=== PATIENT | male | born 1940 | race Caucasian/White ===

== ENCOUNTER → 2023-07-24 06:41 | Outpatient (REF) | payer OTHER, SELFPAY ==
[2023-07-24 07:26] LABS: % Basophils 1.1 % (0-2); % Eosinophils 3.5 % (0-6); % Immature Granulocytes 0.6 % (0-0.5); % Lymphocytes 22.2 % (20.5-51.1); % Monocytes 12.1 % (1.7-9.3); % Neutrophils 60.5 % (42.2-75.2); Absolute Basophils 0.1 10^3/uL (0-0.2); Absolute Eosinophils 0.2 10^3/uL (0-0.7); Absolute Lymphocytes 1.2 10^3/uL (1.2-3.4); Absolute Monocytes 0.7 10^3/uL (0.1-0.6); Absolute Neutrophils 3.3 10^3/uL (1.4-6.5); Hematocrit 39.6 % (39.0-52.0); Hemoglobin 13.6 g/dL (13.0-18.0); Mean Corp Hgb Conc. 34.3 g/dL (33.0-37.0); Mean Corpuscular Hgb 33.7 pg (27.0-31.0); Mean Platelet Volume 9.8 fL (7.4-10.4); Nucleated Red Blood Cells % 0 % (-); Platelet Count 192 10^3/uL (130-400); Red Blood Cell Count 4.04 10^6/uL (4.70-6.10); Red Cell Dist. Width 12.7 % (11.5-14.5); White Blood Cell Count 5.4 10^3/uL (4.8-10.8)
[2023-07-24 07:56] LABS: ALT (SGPT) 28 U/L (0-50); AST (SGOT) 29 U/L (17-59); Alkaline Phosphatase 107 U/L (38-126); Blood Urea Nitrogen 19 mg/dl (9-20); Calcium 9.4 mg/dl (8.4-10.2); Carbon Dioxide 27 mmol/L (22-30); Chloride 106 mmol/L (98-107); Glucose 116 mg/dl (70-99); HDL Cholesterol 64 mg/dl; LDL Cholesterol, Calculated 64 mg/dl; Potassium 4.5 mmol/L (3.5-5.1); Sodium 137 mmol/L (135-145); Total Bilirubin 0.8 mg/dl (0.2-1.3); Total Cholesterol 143 mg/dl (50-199); Total Protein 6.6 g/dl (6.3-8.2); Triglyceride 77 mg/dl (10-149); Very Low Density Lipoprotein 15 mg/dl (0-30); eGFR > 60.00
== END ==
LOC: REG 06:41
PROVIDERS: ATTENDING PHYSICIAN Internal Medicine Cardiovascular Disease; FAMILY PHYSICIAN Family Medicine
DX: Z00.00 Encounter for general adult medical examination without abnormal findings (principal); I25.10 Atherosclerotic heart disease of native coronary artery without angina pectoris; I10 Essential (primary) hypertension; E78.5 Hyperlipidemia, unspecified; Z86.39 Personal history of other endocrine, nutritional and metabolic disease; E11.9 Type 2 diabetes mellitus without complications
CPT/HCPCS: 36415; 80053; 80061; 83036; 85025

== ENCOUNTER → 2023-08-27 08:28 | Outpatient (REF) | payer OTHER, SELFPAY ==
[2023-08-27 09:07] LABS: % Basophils 0.9 % (0-2); % Eosinophils 3.2 % (0-6); % Immature Granulocytes 0.1 % (0-0.5); % Neutrophils 68.8 % (42.2-75.2); Absolute Basophils 0.1 10^3/uL (0-0.2); Absolute Eosinophils 0.2 10^3/uL (0-0.7); Absolute Lymphocytes 1.2 10^3/uL (1.2-3.4); Absolute Monocytes 0.7 10^3/uL (0.1-0.6); Absolute Neutrophils 4.7 10^3/uL (1.4-6.5); Hematocrit 41.3 % (39.0-52.0); Hemoglobin 14.1 g/dL (13.0-18.0); Mean Corp Hgb Conc. 34.1 g/dL (33.0-37.0); Mean Corpuscular Hgb 33.1 pg (27.0-31.0); Mean Corpuscular Volume 96.9 fL (80.0-94.0); Nucleated Red Blood Cells % 0 % (-); Platelet Count 190 10^3/uL (130-400); Red Blood Cell Count 4.26 10^6/uL (4.70-6.10); Red Cell Dist. Width 12.6 % (11.5-14.5); White Blood Cell Count 6.8 10^3/uL (4.8-10.8)
[2023-08-27 09:28] LABS: Erythrocyte Sed Rate 11 mm/hour (0-20)
[2023-08-27 10:10] LABS: ALT (SGPT) 24 U/L (0-50); AST (SGOT) 28 U/L (17-59); Albumin 3.8 g/dl (3.5-5.0); Alkaline Phosphatase 98 U/L (38-126); Blood Urea Nitrogen 19 mg/dl (9-20); Calcium 9.3 mg/dl (8.4-10.2); Carbon Dioxide 26 mmol/L (22-30); Chloride 107 mmol/L (98-107); Glucose 128 mg/dl (70-99); Potassium 4.4 mmol/L (3.5-5.1); Sodium 140 mmol/L (135-145); Total Bilirubin 0.8 mg/dl (0.2-1.3); Total Protein 6.3 g/dl (6.3-8.2); eGFR > 60.00
[2023-08-27 10:21] LABS: C-Reactive Protein < 5.00 mg/L (0.0-10.00)
[2023-08-28 14:31] LABS: Lyme Antibody Screen, EIA Negative (Negative)
== END ==
LOC: REG 08:28
PROVIDERS: ATTENDING PHYSICIAN Internal Medicine; FAMILY PHYSICIAN Family Medicine
DX: A15.9 Respiratory tuberculosis unspecified (principal); A69.20 Lyme disease, unspecified; K75.9 Inflammatory liver disease, unspecified; M06.9 Rheumatoid arthritis, unspecified; M25.50 Pain in unspecified joint; M79.641 Pain in right hand; M81.0 Age-related osteoporosis without current pathological fracture; Z68.35 Body mass index [BMI] 35.0-35.9, adult
CPT/HCPCS: 36415; 80053; 85025; 85652; 86140; 86618

== ENCOUNTER 2023-11-02 20:59 | Inpatient (IN) | payer OTHER, SELFPAY ==
[2023-11-02] VITALS (7 sets, daily range): BP systolic 137–167; BP diastolic 62–80; BMI 34.3; BMI 33.9
[2023-11-02 19:14] LABS: Hematocrit 37.9 % (39.0-52.0); Hemoglobin 13.7 g/dL (13.0-18.0); Mean Corp Hgb Conc. 36.1 g/dL (33.0-37.0); Mean Corpuscular Hgb 33.7 pg (27.0-31.0); Mean Corpuscular Volume 93.3 fL (80.0-94.0); Mean Platelet Volume 9.9 fL (7.4-10.4); Platelet Count 193 10^3/uL (130-400); Red Blood Cell Count 4.06 10^6/uL (4.70-6.10); Red Cell Dist. Width 12.7 % (11.5-14.5); White Blood Cell Count 10.1 10^3/uL (4.8-10.8)
[2023-11-02 19:38] LABS: Urine Albumin Trace (Neg - Trace); Urine Bilirubin Negative (Negative); Urine Character Very Cloudy (Clear); Urine Color Yellow; Urine Glucose Negative (Negative); Urine Ketone 1+ (Negative); Urine Leukocyte 2+ (Negative); Urine Nitrite Negative (Negative); Urine Occult Blood 1+ (Negative); Urine Specific Gravity 1.025 (<1.030); Urine Urobilinogen Negative (Neg - 1+)
[2023-11-02 19:41] LABS: ALT (SGPT) 30 U/L (0-50); AST (SGOT) 32 U/L (17-59); Albumin 4.2 g/dl (3.5-5.0); Alkaline Phosphatase 112 U/L (38-126); Blood Urea Nitrogen 17 mg/dl (9-20); Calcium 9.1 mg/dl (8.4-10.2); Carbon Dioxide 26 mmol/L (22-30); Chloride 101 mmol/L (98-107); Estimated Creatinine Clearance 83 ml/min; Glucose 111 mg/dl (70-99); Magnesium 1.8 mg/dl (1.6-2.3); Potassium 4.1 mmol/L (3.5-5.1); Sodium 134 mmol/L (135-145); Total Protein 6.6 g/dl (6.3-8.2); eGFR > 60.00
[2023-11-02 19:43] LABS: Urine Squamous Cell 0-2 /LPF (Few)
[2023-11-02 19:44] LABS: Urine Bacteria Moderate (Negative); Urine White Cell 70-80 /HPF (0-5)
--- NOTE | 2023-11-02 20:18 | ED.GENMED ---
History of Present Illness
General
Chief Complaint: Change in Mental Status
Source: patient and spouse
Exam Limitations: none
Time Seen by Provider: 11/02/23 18:36
Nursing documentation reviewed up to this point in time: agreed with
History of Present Illness
History of Present Illness:
Patient with history of TIA, currently taking Plavix only at home, presents to ED secondary to sudden onset of confusion, i.e. 'cannot remember yesterday's events', noted by his this morning, after breakfast. also states that patient
could not remember name of the legal services professional when watching news this morning, which is unusual for the patient. Patient denies headache. Denies difficulty with speech. Denies difficulty with swallowing. Denies headache. Denies loss of
sensation or weakness. Denies difficulty with ambulation. When he was diagnosed with TIA last year, his symptoms included confusion along with slurred speech.
Past History
Past History
ED Past Medical History: CAD and Other (Aortic valve replacement, gout)
ED Past Surgical History: Cardiac
Social History
Tobacco: Smoker
Alcohol: Daily
Drug: None
Personal:
Living: with family
Review of Systems
Review of Systems
Allergies reviewed?: Yes
All Other Systems: ROS reviewed and negative except as documented in HPI and ROS
Constitutional: Reports no symptoms
EENT: Reports no symptoms
Respiratory: Reports no symptoms
ABD/GI: Reports no symptoms
Musculoskeletal: Reports no symptoms
Skin: Reports no symptoms
Neurological: Reports other (confusion)
Phy Exam
Physical Exam
Physical Exam:
Physical Exam
General: no apparent distress, not acutely ill. afebrile
Head: nc/at. eomi
Neck: supple. no meningeal signs.
Heart: s1/s2 regular rate and rhythm, no murmur. equal radial pulses.
Lungs: no acute respiratory distress. clear bilaterally
Abdomen: normal bowel sounds. not tender.
Neuro: alert and oriented. no focal neurological deficits. normal speech.
Skin: no rash
Psychiatric: well kept. interactive and cooperative
Extremities: no edema. no calf tenderness.
Course
Orders/Labs/Results
Orders:
Orders
11/02/23 18:33
CT Head W/o Iv Contrast Urgent
Comment:
Reason For Exam: headache
11/02/23 18:44
Electrocardiogram (*1) Stat
Reason for Study: Other
Other Reason for Exam: neuro symptoms
EKG- Treatment ONCE
11/02/23 19:06
Complete Blood Count/No Diff Urgent
Comprehensive Metabolic Panel Urgent
Magnesium Urgent
11/02/23 19:29
Urinalysis Reflex To Culture Urgent
Date Specimen was Collected: 11/02/23
Time Specimen was Collected: 19:08
Urine Microscopic Reflex Cult Urgent
Urine Culture Urgent
PARVIN Source: U
Specimen Description:
Obtained by: Random
Date Specimen was Collected: 11/02/23
Time Specimen was Collected: 19:08
11/02/23 20:22
Aspirin 325 mg PO NOW STA
11/02/23 20:31
CefTRIAXone [Rocephin] 1,000 mg IV NOW STA
11/02/23 20:33
Sterile Water [Sterile Water For Injection] 10 ml IV NOW STA
11/02/23 20:51
Admit/Transfer Patient As Directed
Co-Sign Provider:
Level of Care: Inpatient admission
Assign to:: Telemetry
Physician / Group: [email or web address]
Diagnosis: Lacunar infract
Reason for Telemetry: Arrhythmia
Date to Stop Telemetry: 11/05/23
Time to Stop Telemetry: 11:00
Reason for Hospitalization: lacunar infract
Expected length of stay greater than two midnights?: Yes
ELOS- Estimated Length of Stay in days: 3
I certify the patient meets the requirements for IP care: Yes
PRN Pain Medication Management As Directed
May give lesser potent ordered pain med per pt: Yes
preference::
Protocol:: Medication orders for pain may be administered in a
manner that supports deferring to patient preference
when the pt is:
- Requesting an ordered lesser potent pain medication.
Least to most potent pain medications are defined
as: acetaminophen < NSAID < tramadol < opioids
(morphine, oxycodone, hydromorphone).
- Requesting a lesser dose of the same medication IF
ORDERED.
- Requesting a less intrusive route of administration
if both routes are prescribed by the provider (PO <
IV).
11/02/23 20:53
Code Status As Directed
Resuscitation Status: Full Code
11/02/23 21:45
Acetaminophen [Tylenol/Feverall] 650 mg RECTAL Q4HPRN PRN
Acetaminophen [Tylenol] 650 mg PO Q4HPRN PRN
11/02/23 21:45
Case Management Consult ONCE
Case Management Consult: Discharge Planning
Comment: stroke/tia
DIETARY CONSULT Routine
Reason for Consult: stroke/TIA
NEUROLOGY CONSULT Urgent
Consulting Provider: Demetra Nye
Was physician already notified: Yes
Gym Instructor Urgent
MA [place] Routine
Comment:
Reason For Exam: stroke/TIA
Recent pill cam endoscopy?: No
MA Neck With Contrast Routine
Comment:
Reason For Exam: stroke/TIA
Recent pill cam endoscopy?: No
MR Brain Without Contrast Routine
Comment:
Reason For Exam: stroke/TIA
Recent pill cam endoscopy?: No
Activity As Directed
Activity Level: As Tolerated
NIH Stroke Scale As Directed
Directions: Per protocol
Comment: every shift and with any change in condition or mental status
Neurological Checks As Directed
Frequency: q4h
Additional Instructions:: q4h x 24h upon admission to the floor, then qshift & with any change in condition
and mental status
Patient Education As Directed
Type: Stroke education packet
Comment: provide to patient and family
Pneumatic Compression Sleeves As Directed
Type: Thigh high
Swallow Screening CVA/TIA ONLY As Directed
Comment: NPO until swallowing screening completed
If patient FAILS swallow screening:: NPO, Speech Therapy consult, Aspiration Precautions
If patient PASSES swallow screening, diet:: Cholesterol Lowering
Vital Signs As Directed
Frequency: Per unit guidelines
Ot Eval And Treat Routine
Pt Eval And Treat Routine
Activity Level: As Tolerated
Speech Therapy Eval & Treat Routine
DX Deep Vein Thrombosis Video Routine
11/02/23 21:55
Glycohemoglobin (HgbA1c) Routine
11/02/23 22:00
Atorvastatin [Lipitor] 40 mg PO HS
11/03/23 06:00
Basic Metabolic Panel IN AM
Cardiovascular Evaluation IN AM
Complete Blood Count/No Diff IN AM
11/03/23 08:00
Allopurinol [Zyloprim] 300 mg PO DAILY
Aspirin Chewable [Low Strength Aspirin] 81 mg PO DAILY
Clopidogrel Bisulfate [Plavix] 75 mg PO DAILY
Hydroxychloroquine [Plaquenil] 400 mg PO DAILY
Irbesartan [Avapro] 300 mg PO DAILY
Metoprolol Xl [Toprol Xl] 75 mg PO DAILY
Sulfasalazine [Azulfidine] 1,000 mg PO BID
11/03/23 12:00
CefTRIAXone [Rocephin] 1,000 mg IV Q24H
11/03/23 18:00
Finasteride [Proscar] 5 mg PO QPM
Tamsulosin [Flomax] 0.4 mg PO QPM
11/04/23 06:00
Basic Metabolic Panel IN AM
Complete Blood Count/No Diff IN AM
11/05/23 06:00
Basic Metabolic Panel IN AM
Complete Blood Count/No Diff IN AM
11/05/23 11:00
DC Protocol for Telemetry ONCE
11/06/23 06:00
Basic Metabolic Panel IN AM
Complete Blood Count/No Diff IN AM
11/07/23 06:00
Basic Metabolic Panel IN AM
Complete Blood Count/No Diff IN AM
Abnormal Lab Results
11/02/23 11/02/23
19:06 19:29
RBC 4.06 L 10^6/uL
(4.70-6.10)
Hct 37.9 L %
(39.0-52.0)
MCH 33.7 H pg
(27.0-31.0)
Sodium 134 L mmol/L
(135-145)
Glucose 111 H mg/dl
(70-99)
Urine Ketones 1+ A
(Negative)
Ur Occult Blood Reflex 1+ A
(Negative)
Leukocyte Esterase Rfl 2+ A
(Negative)
Urine RBC 7-10 A /HPF
(0-2)
Urine WBC (Reflex) 70-80 A /HPF
(0-5)
Urine Bacteria (Reflex) Moderate A
(Negative)
11/02/23 19:06
11/02/23 19:06
Vital Signs
Initial and Last Documented VS:
Initial Vital Signs
Temp Pulse Resp BP Pulse Ox
98.7 F 89 18 167/80 97
11/02/23 18:09 11/02/23 18:09 11/02/23 18:09 11/02/23 18:09 11/02/23 18:09
Last Documented Vital Signs
Temp Pulse Resp BP Pulse Ox
98.5 F 83 16 146/73 96
11/02/23 22:31 11/02/23 22:31 11/02/23 22:31 11/02/23 22:31 11/02/23 22:31
MDM/Problems Addressed
MDM/Problems Addressed:
CT head: lacunar infarct noted.
Patient is not a candidate for TNK treatment, as NIH stroke scale is 0.
Discussed with (neurology). Recommends admission for further workup, including adding aspirin to his daily Plavix regimen.
*Critical Care Note
Total Time (30-74mins, 75-104mins- exclusive of procedures): Not Applicable
ED Attending Note
-
Portions of this chart may have been created with voice recognition software.� Occasional wrong word or��sound alike� substitutions may have occurred due to the inherent limitations of voice recognition software.
Discharge Plan
Departure
Patient Disposition: Admit
Date of Disposition: 11/02/23
Time of Disposition: 20:25
Admit to: Telemetry
Presentation/result/management discussed w/ accepting MD/DO: Hospitalist
Discharge Problem:
Acute CVA (cerebrovascular accident)
Interventions
Interventions:
*Risk Screen - Suicide Last Done: 11/02/23 18:09
*General Assessment Last Done: 11/02/23 18:09
*Neglect/Abuse Screening Last Done: 11/02/23 18:09
ED- Fall Risk Assessment Last Done: 11/02/23 18:30
*ED COVID-19 Vaccine History Last Done: 11/02/23 18:30
*Nursing Disposition Last Done: 11/02/23 21:46
ED- Pulmonary Assessment Last Done: 11/02/23 18:30
ED-Psychological Assessment Last Done: 11/02/23 18:30
ED- Neurological Assessment Last Done: 11/02/23 18:30
ED- Cardiac Assessment Last Done: 11/02/23 18:30
ED Swallowing Screen Last Done: 11/02/23 18:30
Discharge Date and Time
Discharge Date/Time: 11/02/23 21:45
--- NOTE | 2023-11-02 20:25 | HPS.HSE ---
Family Physician
-
Family Physician: Jessika Benson MD
Chief Complaint
-
confusion
History of Present Illness
83 year old with PMH for TIA, CAD, GOUT presented to us with confusion since this morning. also states that patient could not remember name of the import customer service manager when watching news this morning, which is unusual for the patient. he couldn't
remember what happened to Trump last week, which he is very well aware as he follow political news all the time. patient refused to eat dinner as he was keep saying 'I don't feel good'. he stated some GATICA. denied fever chills, chest pain, sob. denied
abdominal pain,n,v,d. denied dysuria or hematuria.
Ct with lacunar infract. received Plavix and asa in ER. admitting for further management.
Medical History
Past Medical History
Past Medical History: Reports Other
Additional Past Medical History:
Rheumatoid arthritis
Essential hypertension
Hyperlipidemia
Aortic stenosis
DVT -off anticoagulation since September 2020.
CAD
Gout
Paroxysmal atrial fibrillation -only noted in the perioperative state without recurrence
Chronic heart failure preserved EF
Spinal stenosis
Lyme disease
Past Surgical History: Reports Other
Additional Past Surgical History:
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
Bioprosthetic AVR February 2016
Orthopedic surgery
Bilateral cataract
Social History
Tobacco: Smoker (cigars daily)
Alcohol: Daily (2 beers daily)
Drug: None
Personal:
Living: With Family
Family History
Family History: Not pertinent
Allergies / Home Medications
Allergies reflects when Allergies were last updated in [employer].
Home Medications with original date entered in [employer]
Allergy/Medication List:
Allergies
Allergy/AdvReac Type Severity Reaction Status Date / Time
morphine Allergy Nausea / Verified 11/02/23 18:08
Vomiting
Enviornmental Allergy Sneezing, Uncoded 01/04/23 09:37
runny
nose, eyes
watery
Home Medications
allopurinol 300 mg tablet 300 mg PO DAILY 02/16/16
aspirin 81 mg tablet,delayed release 81 mg PO DAILY 02/16/16
atorvastatin 20 mg tablet (Lipitor) 20 mg PO HS 01/04/23
calcium carbonate (Calcium 600) 600 mg PO DAILY 01/04/23
cholecalciferol (vitamin D3) 50 mcg (2,000 unit) capsule (Vitamin D3) 50 mcg PO DAILY 01/04/23
finasteride 5 mg tablet 5 mg PO QPM 01/04/23
hydroxychloroquine 200 mg tablet (Plaquenil) 400 mg PO DAILY 01/04/23
irbesartan 300 mg tablet (Avapro) 300 mg PO DAILY 01/04/23
metoprolol succinate 50 mg tablet,extended release 24 hr (Toprol XL) 75 mg PO DAILY 01/04/23
omeprazole 20 mg tablet,delayed release 20 mg PO Q48H 01/04/23
sulfasalazine 500 mg tablet 1,000 mg PO BID 01/04/23
tamsulosin 0.4 mg capsule (Flomax) 0.4 mg PO QPM 01/04/23
clopidogrel 75 mg tablet 75 mg PO DAILY #20 tabs 01/05/23
Review of Systems
-
Constitutional: Reports No Symptoms
EENT: Reports No Symptoms
Respiratory: Reports No Symptoms
Cardiac: Reports No Symptoms
Abdomen/GI: Reports No Symptoms
: Reports No Symptoms
Musculoskeletal: Reports No Symptoms
Skin: Reports No Symptoms
Neurological: Reports Headache
Endocrine: Reports No Symptoms
Hematologic/Lymphatic: Reports No Symptoms
Psych: Reports No Symptoms
Physical Exam
Vital Signs
Vital Signs
Temp Pulse Resp BP Pulse Ox
98.7 F 89 18 137/62 96
11/02/23 18:09 07/21/24 18:09 11/02/23 18:09 11/02/23 20:00 11/02/23 20:00
Physical Exam
General: Well Developed, Well Nourished and No Apparent Distress
HEENT: NormoCephalic, Moist mucous membranes and Atraumatic
Respiratory: Clear
Cardiac: S1/S2 and Regular Rhythm; No Murmur or Rub
GI: Soft, Non Tender, Non Distended and Normal Bowel Sounds; No Organomegaly
Rectal: Deferred by Provider
Musculoskeletal: No Clubbing, No Cyanosis and No Edema
Skin: No Rash
Neuro: AO x 3 and Nonfocal/grossly intact
Psych: Calm
Laboratory Results
-
11/02/23 19:06
11/02/23 19:06
Laboratory Results
Total Bilirubin 1.0 mg/dl (0.2-1.3) 11/02/23 19:06
AST 32 U/L (17-59) 11/02/23 19:06
ALT 30 U/L (0-50) 11/02/23 19:06
Alkaline Phosphatase 112 U/L (38-126) 11/02/23 19:06
Data Reviewed
-
CT Scan: Report Reviewed by me
Lab Data: Labs Reviewed by me
Impression/Plan
-
#lacunar infract
-CT head with here is a 1 cm nonhemorrhagic lacunar infarct in the anterior aspect of the putamen and anterior limb of the internal capsule on the left.There is mild diffuse cortical atrophy with mild nonspecific white matter changes as described
above.
-asa and Plavix continued
-PT/OT consult
-neurology consult
#Urinary tract infection
-iv ceftriaxone.
#CAD/CABG -stable
-plavix continued
#Essential hypertension
-BP stable
-metoprolol and irbesartan continued
#Hyperlipidemia -continue atorvastatin.
#Aortic stenosis -status post bioprosthetic AVR.
#Rheumatoid arthritis -stable.� Continue hydroxychloroquine, sulfasalazine.
#Paroxysmal atrial fibrillation -not on chronic anticoagulation
-metoprolol continued
#Gout -stable.� Continue allopurinol.
#Tobacco dependence -smokes 1 cigar daily.� Encouraged to quit.
#History of DVT
#Full code
[2023-11-02] MEDS: ASPIRIN 325 MG PO (20:33)
[2023-11-02] MEDS: STERILE WATER FOR INJECTION 10 ML IV (20:41)
[2023-11-02] MEDS: ROCEPHIN 1000 MG IV (20:41)
--- NOTE | 2023-11-02 20:50 | W.PN.UPDATE ---
Update Note
Progress Note Update
This note serves as an addendum to the H&P by trailer chief ANA LUISA Kelsey WYLIE
HPI
83M HX TIA on DAPL, Prx AF on DAPL, HLD on statin seen at ER for evalaution of acute short term memery lossnoted since breakfast. He could not remember name of the financial service representative when watching news this morning, which is unusual for the patient.
PHX
Essential hypertension.
Hyperlipidemia.
Coronary artery disease.
Aortic stenosis.
Rheumatoid arthritis.
Paroxysmal atrial fibrillation.
SHX;
Tobacco: Smoker
Alcohol: Daily
Drug: None
Personal:
Living: with family
Reviewed VS: stable . Normotensive
PE
Gen: NAD, not toxic looking
HEENT: moist OM. Syymetric face. Normal speech
Neck: supple
Lungs: symmetri AE
Cor: RRR S1 S2
Abdomen: benign exam
MDS NURSE: AAO3 , NFND
MS: symmetric tone and movement
Psych: approrpaite
Data
Unremarkable CBC
Na 134
nl eGFR
UA suggestive of UTI
11/02/23 HCT:
- There is a 1 cm nonhemorrhagic lacunar infarct in the anterior aspect of the putamen and anterior limb of the internal capsule on the left.
- There is mild diffuse cortical atrophy with mild nonspecific white matter changes as described above.
Last hospitalist admission: 01/04/23 - 01/05/23 Dxs;
1. Transient ischemic attack.
ASSESSMENT & PLAN
Pending Rx reconciliation
Acute CVA : lacuna infarct at Lt basal ganglia
- Brain MRI in AM
- cont. PIECE WORK INSPECTOR DAPL
- check A1C plus Lipids
- escalade Atorvastatin to 40 qpm
- Neuro consulted
HLD on Atorvastatin 20 qpm
- escalade Atorvastatin to 40 qpm
UA suggestive UTI
- f/u UCx
- start IV CFTZ
BPH
- stable
- on Finasteride and Tamsulosin
Essential HTN
- cont Avapro - hold if SBP < 120
HX RA
- stable
- cont. PIECE WORK INSPECTOR Plaquenil plus Sulfasalazine
HX Gout
- stable
- cont allopurinol
DVT Px: SCD
Code: Full
IP TLM
[2023-11-02] MEDS: FLUSH (NSS) 1 FLUSH IV (21:06)
[2023-11-02] MEDS: LIPITOR 40 MG PO (22:29)
[2023-11-02] MEDS: TYLENOL 650 MG PO (22:29)
--- NOTE | 2023-11-02 22:30 | PTCARENOTE ---
Received patient from ED. stable vitals. NIH- 0. forgetful. c/o moderate headache. SR in 70s-80s on tele. POC reviewed with patient.
[2023-11-02] MEDS: STERILE WATER FOR INJECTION IV (23:47)
[2023-11-03 03:56] VITALS: BP 134/75
[2023-11-03 05:50] LABS: Hematocrit 37.5 % (39.0-52.0); Hemoglobin 13.3 g/dL (13.0-18.0); Mean Corp Hgb Conc. 35.5 g/dL (33.0-37.0); Mean Corpuscular Hgb 33.6 pg (27.0-31.0); Mean Corpuscular Volume 94.7 fL (80.0-94.0); Platelet Count 185 10^3/uL (130-400); Red Blood Cell Count 3.96 10^6/uL (4.70-6.10); Red Cell Dist. Width 12.7 % (11.5-14.5); White Blood Cell Count 8.1 10^3/uL (4.8-10.8)
[2023-11-03 06:11] LABS: Blood Urea Nitrogen 15 mg/dl (9-20); Carbon Dioxide 27 mmol/L (22-30); Chloride 102 mmol/L (98-107); Estimated Creatinine Clearance 83 ml/min; Glucose 103 mg/dl (70-99); HDL Cholesterol 55 mg/dl; LDL Cholesterol, Calculated 60 mg/dl; Potassium 3.8 mmol/L (3.5-5.1); Sodium 138 mmol/L (135-145); Total Cholesterol 127 mg/dl (50-199); Triglyceride 61 mg/dl (10-149); Very Low Density Lipoprotein 12 mg/dl (0-30); eGFR > 60.00
[2023-11-03 07:30] VITALS: BP 169/84
--- NOTE | 2023-11-03 07:33 | W.PN.HOSP.TC ---
Today's Communication/Plan
-
cont abx
check LLE US, venous duplex
Plavix to be discontinued in favor of Eliquis
monitor H&H
follow up urine cx
B12 supplementation
Assessment / Plan
Assessment / Plan
Physical Exam
Gen: No acute distress. Appears comfortable at this time
HEENT: Normocephalic Atraumatic Hard of Hearing PERRLA
Neck: supple, no Carotid bruits
Lungs: Clear to Auscultation b/l
Cardio: RRR S1 S2
Abdomen: soft nontender bowel sounds present
SEA CAPTAIN: AOx3
Ext: lower ext edema +1. LLE erythema tenderness thigh just above knee noted
Psych: calm cooperative
HPI 83M HX TIA on DAPL, Prx AF on DAPL, HLD on statin p/w acute short term memory loss could not remember name of the consulting services associate when watching news which was unusual for patient. Urinalysis suggestive UTI. B12 deficiency also noted. CT head
concerning for Lacunar infarct. MRI would note no acute infarcts but chronic infarcts were noted.
#CT appreciated lacuna infarct at Lt basal ganglia
#MRI appreciated appreciated no acute infarcts however small chronic infarcts b/l cerebellar hemispheres and small chronic intraparenchymal microhemorrhages Lt frontal #temporal lobes and cerebellum (possible amyloid angiopathy) were noted.
#Short term memory issues potentially due to vascular dementia
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
-Neuro Cardio Consults appreciated
-Per Discussion w/ neuro and cardio, Plavix to be discontinued in favor of Eliquis (given hx concerning for afib) and patient to continue with ASA
-A1c 4.9 non diabetic
-LDL at goal <70
- Home Atorvastatin increased to 40 mg
-ECHO appreciated preserved EF 60-65% bioprosthetic aortic valve no significant changed from prior ECHO Jan 2023
-ST/PT/OT eval appreciated
#B12 deficiency
supplementation started
#Lower ext Lymphedema
#LLE erythema thigh just above knee
#hx DVT
check US for possible hematoma fluid collection
Venous duplex eval for possible DVT
HLD
home Atorvastatin increased from 20 mg to 40 mg as above
UA suggestive UTI
suspect earlier confusion d/t delirium 2/2 UTI, resolving
- f/u UCx
- cont ceftriaxone
BPH
- stable
- on Finasteride and Tamsulosin
Essential HTN
- cont Home Avapro Metoprolol
HX RA
- stable
- cont. MEAL ROOM HAND Plaquenil plus Sulfasalazine
HX Gout
- stable
- cont allopurinol
DVT Px: SCD
Code: Full
IP TLM
Discussed with patient, patient's Chanda, nurse, Cardiology, and Neurology
I spent a total of 55 minutes with the patient or on the floor. More than 50% of this time involved counseling and coordination of care.
Anticipated Discharge: 24 - 48 hours
Subjective/Interval History
-
Date of Service: November 03, 2023
Seen and examined at bedside in no acute distress sitting up comfortably in bed. Reports overall feeling well. Confusion appears to be resolved at this time. Patient's Chanda present during evaluation.
Objective Data
-
Labs:
Laboratory Results
11/02/23 11/03/23
19:06 05:23
WBC 8.1
Hgb 13.3
Hct 37.5 L
Plt Count 185
Sodium 134 L 138
Potassium 4.1 3.8
Chloride 101 102
Carbon Dioxide 26 27
BUN 17 15
Creatinine 0.8 0.8
Glucose 111 H 103 H
Calcium 9.1 9.0
Total Bilirubin 1.0
AST 32
ALT 30
Alkaline Phosphatase 112
Vital Signs:
Vital Signs
Temp Pulse Resp BP Pulse Ox
98.2 F 75 18 134/75 96
11/03/23 03:56 11/03/23 03:56 11/03/23 03:56 11/03/23 03:56 11/03/23 03:56
I&O
11/02/23 11/03/23 11/04/23
06:59 06:59 06:59
Intake Total 400 / 400
Output Total 900 / 900
Balance -500 / -500
[2023-11-03 07:40] VITALS: BMI 33.4
--- NOTE | 2023-11-03 08:30 | CON.NEURO4 ---
Documented by User: Lorene Billingsley NP 11/03/23 11:39
Consultation - Neurology 4
-
CONSULTING PHYSICIAN: Rodney Cisneros MD
REFERRING PHYSICIAN: Hospitalists/LISETTE Gill
DICTATED BY: ILSETTE Grimm
DATE/TIME OF REQUEST: 11/02/23
DATE/TIME OF CONSULTATION: 11/03/23
Reason for Consultation: CVA
History of Present Illness:
This is an 83-year-old right-handed male who has presented to the hospital on 11/02/23 with report of acute onset confusion. Patient was previously evaluated by our inpatient Neurology service in December 2022 for a 10-15 minute episode of speech
difficulty and a 24 hour period of confusion. He is currently following as an outpatient with Neurology Dr. Juan Pablo Barahona at [facility].
From previous evaluation by Neurology Dr. Alicea on 01/04/23:
'82-year-old right-handed man with a past medical history of prosthetic valve, coronary artery disease, hypertension presented to hospital with episode of expressive speech difficulty and confusion yesterday noted by his . It is notable that
the patient is unable to recollect any of the episodes yesterday and jokingly says his might be making all this up. He woke yesterday feeling normal around 3 PM his noticed that he had called to her while he was working outside and did
not seem to be able to speak properly not being able to express his words properly for around 10 to 15-minutes, and after this he was watching some TV and did not seem to operate the television remote properly. This seemed to improve although later
in the evening around 9 or 10 PM he has some questions that he really should have known the answer to such as ' where do we live?' And questions about an existing previous pension for intermediate findings. It was also notable that he will only
drink only half of beer which is unusual for him. His behavior not at all normal per his yesterday but seems pretty much normal now. There was not any observed facial droop, seizure activity, loss of consciousness, unilateral limb weakness or
paresthesia. Nothing has like this happen before and patient has not had any recent illnesses or head trauma. Patient does not have any existing history of TIA or stroke he is compliant with aspirin 81 mg daily. There did not seem to be any
repetitive identical questions being asked by the patient. No recent stressors of significance.'
MRI brain on 01/05/23 was negative for any acute abnormalities but demonstrated 2 small chronic microhemorrhages in [place] left frontal and left fontal parietal lobe likely due to small vessel disease or hypertension, less likely amyloid angiopathy.
MRA of the head/neck demonstrated a hypoplastic/occluded left vertebral artery anatomic variant, the basilar artery is fed 100% by the right vertebral artery, 70% P1 stenosis in the right HEALTHCARE ADMINISTRATOR, 50% stenosis of the left common carotid artery, and
50-70% stenosis in the proximal left subclavian artery. He completed 21 days of DAPT with aspirin and Plavix, then aspirin was discontinued and he was continued on Plavix 75mg daily as that event occurred while on aspirin. He has a history of
paroxysmal Afib following CABG in 2015 and also a RLE DVT in 2020 attributed to wearing an ankle brace. He was on Eliquis for a short period of time following his DVT, but has been off of this since 2020. He was instructed to have a LINQ monitor
placed by Dr. Barahona and had this scheduled with his Wire Rope Sales Representative, but he canceled the procedure. He was also supposed to complete P2Y12 testing but failed to do this as well.
Yesterday (11/02/23), after eating breakfast, patient's noted that the patient was confused. He could not remember eating breakfast or recent political events, which is very unusual for him. This confusion persisted throughout the day, then
around dinner time he did not want to eat and was saying that he felt generally unwell, prompting her to bring him to the ER for evaluation. There was no speech difficulty or repetitive questioning with this event. CT head was obtained on arrival
and is suggestive of a 1cm nonhemorrhagic lacunar infarct in the anterior aspect of the putamen and anterior limb of the internal capsule on the left, new since previous CT head imaging in 12/2022. He was not a candidate for TNK/IAT due to NIHSS 0.
He was loaded with a full dose aspirin in the ER. Urinalysis is suggestive of UTI. Patient's LLE is red/warm to touch. Patient cannot entirely recall the events of yesterday but knows his brought him here due to concern of his memory. He still
reports feeling 'not quite right' today. He reports having a mild headache for the past few days which has resolved now and also urinary frequency. He had not noticed his LLE redness until today. He denies any headache, dizziness, vision changes,
speech/swallow difficulty, focal numbness, focal weakness, nausea, chest pain, palpitations, and shortness of breath. At baseline he reports mild short term memory issues. He drives rarely, he usually has a friend or his drive him places but he
denies getting lose/any accidents. He does reports daily alcohol usage at least 2 beers/day for years. He manages the finances and denies making any errors. His manages his medications, he denies missing any doses.
Past Medical History: TIA, severe intracranial stenosis, HTN, HLD, paroxysmal Afib (no OAC), RLE DVT 2020 attributed to an ankle brace, CAD, HFpEF, aortic stenosis, anemia, DJD, spinal stenosis, gout, childhood asthma, lyme disease, BPH, snoring,
rheumatoid arthritis
Surgical History: AVR, CABG, b/l cataract removal, b/l carpal tunnel release, lumbar rhizotomy, basal cell carcinoma removal, R RTC repair, L TKR, R THR
Family History: Reviewed and noncontributory.
Social History: 1 cigar daily. 2 beers daily. Denies illicit drug use.
Allergies: Morphine, environmental.
Home Medications: See below.
Review of Symptoms:
Patient denies any fever, headache, chest pain, shortness of breath, GI or symptoms.
�Per the HPI.�All systems are reviewed negative except above.
Physical Exam:
The patient is afebrile, abdomen is nondistended, breathing is unlabored, skin is warm and dry, +2 LLE edema, +1 RLE edema. LLE with lateral/medial reddened areas/hot to touch.
NIH Stroke Scale:
I performed the NIH stroke scale on the patient on 11/03/23 at 0900. The patient scored 0 points on the NIH stroke scale assessment, which were assigned as follows: See below.
Neurologic Examination:
The patient is awake, alert and oriented x 3. Able to state the months of the year in reverse order without difficulty. Last holiday- October 15, next hol- . He is able to follow commands and answer questions appropriately. There is no
aphasia or dysarthria. On cranial nerve assessment, pupils are 3 mm bilateral, round and reactive to light and accommodation. Visual bryan are full. Extraocular movements are intact. Facial sensations are intact and bilaterally symmetrical, there
is no facial asymmetry. Hearing is diminished bilaterally to normal conversation volume. Tongue palate and uvula are midline. Sternocleidomastoid strengths are full bilaterally. Motor strengths are 5/5 bilateral upper and lower extremities on
medical research Elim Ira scale. There is no drift or involuntary movement noted. Deep tendon reflexes are 1+ bilateral upper and lower extremities and Babinski is absent bilaterally. There was no extinction noted on double simultaneous stimulation.
Coordination is intact by finger to nose bilaterally.
Lab Results: See below.
Neuro Imaging:
1. CT head 11/02/23: There is a 1 cm nonhemorrhagic lacunar infarct in the anterior aspect of the putamen and anterior limb of the internal capsule on the left
There is mild diffuse cortical atrophy with mild nonspecific white matter changes as described above.
Differentials for the patient's presentation include:
1. CT head imaging suggestive of a left putamen/internal capsule lacunar infarct new since imaging in 12/2022, possibly contributing to confusion.
2. Toxic metabolic encephalopathy possibly causing confusion, urinalysis suggestive of UTI.
3. LLE redness/warm to touch.
4. History of paroxysmal Afib, failure to get LINQ monitor placed as previously suggested, not on anticoagulation.
5. Possible mild cognitive impairment at baseline.
Patient has the following risk factors for their symptoms: HTN, HLD, intracranial stenosis, paroxysmal Afib (not on OAC), hx TIA, infection
IV Tenecteplase/IAT candidacy: He was not a candidate for TNK/IAT due to NIHSS 0.
Recommendations:
-Continue DAPT with aspirin 81mg and Plavix 75mg daily for 21 days. Will verify Plavix efficacy with P2Y12 level, pending.
-Goal normotension as this event occurred 24 hours ago.
-MRI brain, MRA head/neck pending.
-Infectious workup/treatment per primary team.
-LLE ultrasound pending.
-LDL goal <70. LDL is 60. Home atorvastatin was increased from 20mg to 40mg daily.
-Goal normoglycemia, hbA1c is 4.9.
-Checking blood work for metabolic abnormalities.
-NIHSS and neurological checks per unit guidelines.
-Provide patient with a stroke education packet.
-Smoking cessation counseling.
-PT/OT/ST evaluations.
-DVT prophylaxis.
-Patient should undergo Neuropsychological testing as an outpatient.
-Will follow pending results.
Discussed patient care with: Dr. Cisneros, the patient
Vital Signs and Labs
-
Vital Signs and Labs:
Vital Signs
Temp Pulse Resp BP Pulse Ox
97.9 F 70 18 169/84 97
11/03/23 07:30 11/03/23 07:30 11/03/23 07:30 11/03/23 07:30 11/03/23 07:30
Lab Results
11/03/23 05:23
11/03/23 05:23
Sodium 138 mmol/L (135-145) 11/03/23 05:23
Potassium 3.8 mmol/L (3.5-5.1) 11/03/23 05:23
BUN 15 mg/dl (9-20) 11/03/23 05:23
Glucose 103 mg/dl (70-99) H 11/03/23 05:23
Calcium 9.0 mg/dl (8.4-10.2) 11/03/23 05:23
LDL Cholesterol, Calc 60 mg/dl 11/03/23 05:23
Medications
-
Medications:
Generic Name Dose Route Start Last Admin
Trade Name Freq PRN Reason Stop Dose Admin
Acetaminophen 650 mg 11/02/23 21:45
Acetaminophen 650 Mg Rectal Suppository RECTAL 11/30/23 21:44
Q4HPRN PRN
GATICA, mild pain, or temp >100.4F
Acetaminophen 650 mg 11/02/23 21:45 11/02/23 22:29
Acetaminophen 325 Mg Tablet PO 11/30/23 21:44 650 mg
Q4HPRN PRN Administration
GATICA, mild pain, or temp >100.4F
Allopurinol 300 mg 11/03/23 08:00 11/03/23 09:05
Allopurinol 300 Mg Tablet PO 12/01/23 07:59 300 mg
DAILY ELIA Administration
Aspirin 81 mg 11/03/23 08:00 11/03/23 09:04
Aspirin 81 Mg Chewable Tablet PO 12/01/23 07:59 81 mg
DAILY ELIA Administration
Atorvastatin Calcium 40 mg 11/02/23 22:00 11/02/23 22:29
Atorvastatin (Lipitor) 40 Mg Tablet PO 11/30/23 21:59 40 mg
HS ELIA Administration
Ceftriaxone Sodium 1,000 mg 11/03/23 12:00
Ceftriaxone 1000 Mg / 10 Ml Vial IV
Q24H ELIA
Clopidogrel Bisulfate 75 mg 11/03/23 08:00 11/03/23 09:05
Clopidogrel 75 Mg Tablet PO 12/01/23 07:59 75 mg
DAILY ELIA Administration
Finasteride 5 mg 11/03/23 18:00
Finasteride 5 Mg Tablet PO 12/01/23 17:59
QPM ELIA
Hydroxychloroquine Sulfate 400 mg 11/03/23 08:00 11/03/23 09:03
Hydroxychloroquine 200 Mg Tablet PO 12/01/23 07:59 400 mg
DAILY ELIA Administration
Irbesartan 300 mg 11/03/23 08:00 11/03/23 09:04
Irbesartan 300 Mg Tablet PO 12/01/23 07:59 300 mg
DAILY ELIA Administration
Metoprolol Succinate 75 mg 11/03/23 08:00 11/03/23 09:04
Metoprolol 50 Mg Extended Release Tablet PO 12/01/23 07:59 75 mg
DAILY ELIA Administration
Sodium Chloride 0 flush 11/02/23 22:00 11/02/23 21:06
Sodium Chloride 0.9% (Flush) Syringe IV 11/30/23 21:59 1 flush
PER PROTOCOL ELIA Administration
Sterile Water 10 ml 11/02/23 12:00 11/02/23 23:47
Sterile Water For Injection 10 Ml Vial IV 11/30/23 11:59 Not Given
Q24H ELIA
Sulfasalazine 1,000 mg 11/03/23 08:00 11/03/23 09:04
Sulfasalazine 500 Mg Tablet PO 11/13/23 07:59 1,000 mg
BID ELIA Administration
Tamsulosin HCl 0.4 mg 11/03/23 18:00
Tamsulosin 0.4 Mg Capsule PO 12/01/23 17:59
QPM ELIA
NIH Stroke Score
Subsequent NIH Scale
Date of Subsequent NIH Scale: 11/03/23
Time of Subsequent NIH Scale: 09:00
NIH Stroke Score
Level of Consciousness: 0 - Alert
LOC Questions: 0-Answers both correctly
LOC Commands: 0-Performs both correctly
Best Horizontal Gaze: 0-Normal
Visual Bryan: 0=Normal, no visual loss
Facial Palsy: 0=Normal, symmetrical
Motor - Right Arm: 0=No drift 10 seconds
Motor - Left Arm: 0=No drift 10 seconds
Motor - Right Le-No drift 5 seconds
Motor - Left Le-No drift 5 seconds
Limb Ataxia: 0-Absent
Sensation: 0-Normal
Best Language: 0-No aphasia
Dysarthria: 0-Normal
Extinction and Inattention: 0-No abnormality
Total Score:: 0
Modified [place] (mRS) Score
Modified Umair Scale (mRS): Moderate disability. Requires some help, able to walk unassisted.
Score: 3
Alteplase Contraindication
Inclusion and Exclusion criteria reviewed: Yes
Reasons for NON-Tx with Thrombolytics ABSOLUTE Exclusions: Greater than 4.5 hrs from onset of sxs
IAT Contraindications: NIHSS < 6

Documented by User: Rodney Cisneros MD 11/03/23 23:41
Consultation - Neurology 4
-
CONSULTING PHYSICIAN: Rodney Cisneros MD
REFERRING PHYSICIAN: Hospitalists/LISETTE Gill
DICTATED BY: LISETTE Grimm
DATE/TIME OF REQUEST: 11/02/23
DATE/TIME OF CONSULTATION: 11/03/23
Reason for Consultation: CVA
History of Present Illness:
This is an 83-year-old right-handed male who has presented to the hospital on 11/02/23 with report of acute onset confusion. Patient was previously evaluated by our inpatient Neurology service in December 2022 for a 10-15 minute episode of speech
difficulty and a 24 hour period of confusion. He is currently following as an outpatient with Neurology Dr. Juan Pablo Barahona at [facility].
From previous evaluation by Neurology Dr. Alicea on 01/04/23:
'82-year-old right-handed man with a past medical history of prosthetic valve, coronary artery disease, hypertension presented to hospital with episode of expressive speech difficulty and confusion yesterday noted by his . It is notable that
the patient is unable to recollect any of the episodes yesterday and jokingly says his might be making all this up. He woke yesterday feeling normal around 3 PM his noticed that he had called to her while he was working outside and did
not seem to be able to speak properly not being able to express his words properly for around 10 to 15-minutes, and after this he was watching some TV and did not seem to operate the television remote properly. This seemed to improve although later
in the evening around 9 or 10 PM he has some questions that he really should have known the answer to such as ' where do we live?' And questions about an existing previous pension for intermediate findings. It was also notable that he will only
drink only half of beer which is unusual for him. His behavior not at all normal per his yesterday but seems pretty much normal now. There was not any observed facial droop, seizure activity, loss of consciousness, unilateral limb weakness or
paresthesia. Nothing has like this happen before and patient has not had any recent illnesses or head trauma. Patient does not have any existing history of TIA or stroke he is compliant with aspirin 81 mg daily. There did not seem to be any
repetitive identical questions being asked by the patient. No recent stressors of significance.'
MRI brain on 01/05/23 was negative for any acute abnormalities but demonstrated 2 small chronic microhemorrhages in the left frontal and left fontal parietal lobe likely due to small vessel disease or hypertension, less likely amyloid angiopathy.
MRA of the head/neck demonstrated a hypoplastic/occluded left vertebral artery anatomic variant, the basilar artery is fed 100% by the right vertebral artery, 70% P1 stenosis in the right HEALTHCARE ADMINISTRATOR, 50% stenosis of the left common carotid artery, and
50-70% stenosis in the proximal left subclavian artery. He completed 21 days of DAPT with aspirin and Plavix, then aspirin was discontinued and he was continued on Plavix 75mg daily as that event occurred while on aspirin. He has a history of
paroxysmal Afib following CABG in 2015 and also a RLE DVT in 2020 attributed to wearing an ankle brace. He was on Eliquis for a short period of time following his DVT, but has been off of this since 2020. He was instructed to have a LINQ monitor
placed by Dr. Barahona and had this scheduled with his Wire Rope Sales Representative, but he canceled the procedure. He was also supposed to complete P2Y12 testing but failed to do this as well.
Yesterday (11/02/23), after eating breakfast, patient's noted that the patient was confused. He could not remember eating breakfast or recent political events, which is very unusual for him. This confusion persisted throughout the day, then
around dinner time he did not want to eat and was saying that he felt generally unwell, prompting her to bring him to the ER for evaluation. There was no speech difficulty or repetitive questioning with this event. CT head was obtained on arrival
and is suggestive of a 1cm nonhemorrhagic lacunar infarct in the anterior aspect of the putamen and anterior limb of the internal capsule on the left, new since previous CT head imaging in 12/2022. He was not a candidate for TNK/IAT due to NIHSS 0.
He was loaded with a full dose aspirin in the ER. Urinalysis is suggestive of UTI. Patient's LLE is red/warm to touch. Patient cannot entirely recall the events of yesterday but knows his brought him here due to concern of his memory. He still
reports feeling 'not quite right' today. He reports having a mild headache for the past few days which has resolved now and also urinary frequency. He had not noticed his LLE redness until today. He denies any headache, dizziness, vision changes,
speech/swallow difficulty, focal numbness, focal weakness, nausea, chest pain, palpitations, and shortness of breath. At baseline he reports mild short term memory issues. He drives rarely, he usually has a friend or his drive him places but he
denies getting lose/any accidents. He does reports daily alcohol usage at least 2 beers/day for years. He manages the finances and denies making any errors. His manages his medications, he denies missing any doses.
Past Medical History: TIA, severe intracranial stenosis, HTN, HLD, paroxysmal Afib (no OAC), RLE DVT 2020 attributed to an ankle brace, CAD, HFpEF, aortic stenosis, anemia, DJD, spinal stenosis, gout, childhood asthma, lyme disease, BPH, snoring,
rheumatoid arthritis
Surgical History: AVR, CABG, b/l cataract removal, b/l carpal tunnel release, lumbar rhizotomy, basal cell carcinoma removal, R RTC repair, L TKR, R THR
Family History: Reviewed and noncontributory.
Social History: 1 cigar daily. 2 beers daily. Denies illicit drug use.
Allergies: Morphine, environmental.
Home Medications: See below.
Review of Symptoms:
Patient denies any fever, headache, chest pain, shortness of breath, GI or symptoms.
�Per the HPI.�All systems are reviewed negative except above.
Physical Exam:
The patient is afebrile, abdomen is nondistended, breathing is unlabored, skin is warm and dry, +2 LLE edema, +1 RLE edema. LLE with lateral/medial reddened areas/hot to touch.
NIH Stroke Scale:
I performed the NIH stroke scale on the patient on 11/03/23 at 0900. The patient scored 0 points on the NIH stroke scale assessment, which were assigned as follows: See below.
Neurologic Examination:
The patient is awake, alert and oriented x 3. Able to state the months of the year in reverse order without difficulty. Last holiday- October 15, next hol- . He is able to follow commands and answer questions appropriately. There is no
aphasia or dysarthria. On cranial nerve assessment, pupils are 3 mm bilateral, round and reactive to light and accommodation. Visual bryan are full. Extraocular movements are intact. Facial sensations are intact and bilaterally symmetrical, there
is no facial asymmetry. Hearing is diminished bilaterally to normal conversation volume. Tongue palate and uvula are midline. Sternocleidomastoid strengths are full bilaterally. Motor strengths are 5/5 bilateral upper and lower extremities on
medical research Elim Ira scale. There is no drift or involuntary movement noted. Deep tendon reflexes are 1+ bilateral upper and lower extremities and Babinski is absent bilaterally. There was no extinction noted on double simultaneous stimulation.
Coordination is intact by finger to nose bilaterally.
Lab Results: See below.
Neuro Imaging:
1. CT head 11/02/23: There is a 1 cm nonhemorrhagic lacunar infarct in the anterior aspect of the putamen and anterior limb of the internal capsule on the left
There is mild diffuse cortical atrophy with mild nonspecific white matter changes as described above.
Differentials for the patient's presentation include:
1. CT head imaging suggestive of a left putamen/internal capsule lacunar infarct new since imaging in 12/2022, possibly contributing to confusion.
2. Toxic metabolic encephalopathy possibly causing confusion, urinalysis suggestive of UTI.
3. LLE redness/warm to touch.
4. History of paroxysmal Afib, failure to get LINQ monitor placed as previously suggested, not on anticoagulation.
5. Possible mild cognitive impairment at baseline.
Patient has the following risk factors for their symptoms: HTN, HLD, intracranial stenosis, paroxysmal Afib (not on OAC), hx TIA, infection
IV Tenecteplase/IAT candidacy: He was not a candidate for TNK/IAT due to NIHSS 0.
Recommendations:
-Continue DAPT with aspirin 81mg and Plavix 75mg daily for 21 days. Will verify Plavix efficacy with P2Y12 level, pending.
-Goal normotension as this event occurred 24 hours ago.
-MRI brain, MRA head/neck pending.
-Infectious workup/treatment per primary team.
-LLE ultrasound pending.
-LDL goal <70. LDL is 60. Home atorvastatin was increased from 20mg to 40mg daily.
-Goal normoglycemia, hbA1c is 4.9.
-Checking blood work for metabolic abnormalities.
-NIHSS and neurological checks per unit guidelines.
-Provide patient with a stroke education packet.
-Smoking cessation counseling.
-PT/OT/ST evaluations.
-DVT prophylaxis.
-Patient should undergo Neuropsychological testing as an outpatient.
-Will follow pending results.
Discussed patient care with: Dr. Cisneros, the patient
Attending Note:
83 yr. old male with h/o coronary artery disease, hypertension, atrial fibrillation, intracranial atherosclerosis presented to hospital with episode of expressive speech difficulty and confusion yesterday noted by his that has resolved
Neuro exam AAOx3 Speech fluent. CN nonfocal. Motor Normal tone and strength. Sensory intact. Coordination Intact . Gait WNL
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
Plan: DAPT. MRI/MRA head. PT/OT. Strict BP control
Pat may be discharged once medically stable
Total Time Spent with Patient (in minutes): 30
NIH Stroke Score
NIH Stroke Score
Total Score:: 0
Modified Umair (mRS) Score
Score: 3
[2023-11-03] MEDS: PLAQUENIL 400 MG PO (09:03)
[2023-11-03] MEDS: LOW STRENGTH ASPIRIN 81 MG PO (09:04)
[2023-11-03] MEDS: AVAPRO 300 MG PO (09:04)
[2023-11-03] MEDS: TOPROL XL 75 MG PO (09:04)
[2023-11-03] MEDS: AZULFIDINE 1000 MG PO ×2 (09:04→19:15)
[2023-11-03 09:05] LABS: Glycohemoglobin (HgbA1c) 4.9 % (4.0-5.6)
[2023-11-03] MEDS: PLAVIX 75 MG PO (09:05)
[2023-11-03] MEDS: ZYLOPRIM 300 MG PO (09:05)
[2023-11-03 09:50] VITALS: BP 187/113; PULSE 91
--- NOTE | 2023-11-03 10:39 | PTOTSP ---
The patient was able to ambulate and perform stairs, reports feeling at his baseline in regards to mobility ( present and in agreement). No PT needs identified at this time, will sign off. Defer to OT for post-acute recommendations.
--- NOTE | 2023-11-03 11:04 | PTOTSP ---
SPEECH THERAPY SWALLOW EVALUATION:
Patient exhibits grossly functional oropharyngeal swallow at this time. Patient remains at risk for aspiration given acute CVA. Recommend continue Regular texture diet, thin liquids. General aspiration precautions. Medications whole with liquid, one
at a time. Speech therapy to follow up briefly at the acute care level to ensure diet tolerance, modify as needed, and provide continued education regarding aspiration risk and precautions.
Patient exhibits grossly functional speech, voice, receptive language, and expressive language skills. Mild cognitive communication impairments characterized by reduced Short Term memory. Patient and endorse mild STM deficits at patient's
baseline. Given acuity of CVA, speech therapy to follow briefly at the acute care level for STM deficits.
RECOMMEND:
1) Regular texture diet, thin liquids
2) General aspiration precautions
3) Medications whole with liquid, one at a time
4) Speech therapy to follow up briefly at the acute care level
[2023-11-03 11:08] VITALS: BMI 33.4
--- NOTE | 2023-11-03 11:29 | CON.CAR ---
Addendum entered and electronically signed by Daniel Benavides MD 11/03/23 14:57:
I saw and examined the patient.
The CONTROL BOARD OPERATOR's note was reviewed and I agree with the note.
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
hyperlipidemia, right lower extremity DVT, rheumatoid arthritis who is here for confusion and seen to have UTI and lacunar stroke. We discussed Eliquis given hx of AF, given it was post-op, vs ILR. He was agreeable with Eliquis .
- Start Eliquis for presumed AF given history
- Will discuss with neuro about anti-platelet
Original Note:
Consultation
Consultation Request
Date/Time Consultation Requested: 11/03/23 1051
Date/Time Consultation Performed: 11/03/23 1350
Requesting Provider: Dr. Morales
Performing Provider: Susan KNOX for Dr. Benavides
Reason for Consultation: stroke
Medical History
-
Chief Complaint: confusion
History of Present Illness:
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
right lower extremity DVT, rheumatoid arthritis who is here for confusion and seen to have UTI and lacunar stroke. For UTI, he is on abx. For stroke, neuro is consulted and aspirin was added to his regimen. MRI is pending.
Past Medical History
Past Medical History: CAD, Hypercholesterolemia, NIDDM and Valvular Disease
Social History
Tobacco: Smoker (cigar one a day)
Personal:
Living: With Family
Family History
Family History: Reviewed & Not Pertinent
Allergies / Home Medications
Allergy/AdvReac Type Severity Reaction Status Date / Time
morphine Allergy Nausea / Verified 11/02/23 18:08
Vomiting
Enviornmental Allergy Sneezing, Uncoded 01/04/23 09:37
runny
nose, eyes
watery
�Medication �Instructions �Recorded �Confirmed �Type
allopurinol 300 mg tablet 300 mg PO DAILY 02/16/16 11/02/23 History
atorvastatin 20 mg tablet (Lipitor) 20 mg PO HS 01/04/23 11/02/23 History
calcium carbonate (Calcium 600) 600 mg PO DAILY 01/04/23 01/04/23 History
cholecalciferol (vitamin D3) 50 50 mcg PO DAILY 01/04/23 01/04/23 History
mcg (2,000 unit) capsule (Vitamin
D3)
finasteride 5 mg tablet 5 mg PO QPM 01/04/23 11/02/23 History
hydroxychloroquine 200 mg tablet 400 mg PO DAILY 01/04/23 11/02/23 History
(Plaquenil)
irbesartan 300 mg tablet (Avapro) 300 mg PO DAILY 01/04/23 11/02/23 History
metoprolol succinate 50 mg 75 mg PO DAILY 01/04/23 11/02/23 History
tablet,extended release 24 hr
(Toprol XL)
sulfasalazine 500 mg tablet 1,000 mg PO BID 01/04/23 11/02/23 History
tamsulosin 0.4 mg capsule (Flomax) 0.4 mg PO QPM 01/04/23 11/02/23 History
clopidogrel 75 mg tablet 75 mg PO DAILY #20 tabs 01/05/23 11/02/23 Rx
Review of Systems
-
History Source: Patient and Other (chart)
Neurological: Other (confusion)
Physical Exam
Vital Signs
Temp Pulse Resp BP Pulse Ox
97.9 F 70 18 169/84 97
11/03/23 07:30 11/03/23 07:30 11/03/23 07:30 11/03/23 07:30 11/03/23 07:30
Lab Results
11/03/23 05:23
11/03/23 05:23
Physical Exam
General: Well Developed, Well Nourished and No Apparent Distress
HEENT: Normocephalic and Anicteric
Respiratory: Clear and Non Labored Respirations
Cardiac: Regular Rhythm
Musculoskeletal: Edema (mild BLE edema)
Skin: Other (LUE with redness)
Neuro: AO x 3
Psych: Calm
Impression / Plan
-
Stroke:
-hx TIA
-this diagnosis is threat to bodily function
-on ASA, Plavix, statin
-follow telemetry- no obvious AFIB noted. Of note, as OP there were plans for loop monitor, but patient held off because he did not want to be 'cut anymore'. However, he is reconsidering this. However, patient did have post-op AFIB 2016- Will
discuss with Dr. Benavides if would benefit from going on OAC in the setting previous AFIB and now stroke.
-neurology on board
-checking echo
UTI:
-on abx
History of Bio AVR:
-stable by most recent echo (see below)
CAD s/p CABG 2016:
-stable
-continue antiplatelet and statin, as well as metoprolol
-had post-op afib, but no evidence since then, including an outpatient monitor in the fall- see above
HTN:
-stable
-continue BB and ARB
LE edema, erythema left leg:
-u/s is pending
-hx DVT
Data Reviewed
-
EKG: Tracing Personally Visualized and interpreted (NSR 86 BPM)
CT Scan: Report Reviewed by me (Head CT: There is a 1 cm nonhemorrhagic lacunar infarct in the anterior aspect of the putamen and anterior limb of the internal capsule on the left. There is mild diffuse cortical atrophy with mild nonspecific white
matter changes as described above.)
Medical Tests (Nuc Med, Echo etc): Report Reviewed by me (Echo 01/23/23: Left atrial enlargement. Normally functioning aortic valve bioprosthesis. Grade 1 diastolic dysfunction.) and Other
Labs: Labs Reviewed by me
[2023-11-03 12:50] LABS: TSH Reflex To Free T4 1.22 uIU/ml (0.47-4.68)
[2023-11-03] MEDS: ROCEPHIN 1000 MG IV (13:31)
[2023-11-03] MEDS: STERILE WATER FOR INJECTION 10 ML IV (13:31)
[2023-11-03 13:50] LABS: Folate 11.3 ng/ml (2.76-20); Vitamin B12 208 pg/ml (239-931)
[2023-11-03 15:24] LABS: VerifyNow PRU 133 PRU (180-376)
--- NOTE | 2023-11-03 17:13 | CM ---
Alert awake oriented patient who lives with his Chanda who lives in a condo with 6 step to enter and 7 steps to bed and bathroom. He is asisted in all activities of daily living.He was offered VN he declined need.Uses a cane.
No VN hx / No SNF history
Pharmacy [facility] [address] [facility]
PCP DR Benson
PLAN Home Declined VN
[2023-11-03] MEDS: PROSCAR 5 MG PO (17:47)
[2023-11-03] MEDS: VITAMIN B-12 1000 MCG PO (17:47)
[2023-11-03] MEDS: FLOMAX 0.4 MG PO (17:47)
[2023-11-03] MEDS: ELIQUIS 5 MG PO (19:14)
[2023-11-03 19:55] VITALS: BP 177/96
[2023-11-03 21:00] VITALS: BP 158/90
[2023-11-03] MEDS: LIPITOR 40 MG PO (21:48)
[2023-11-03] MEDS: TYLENOL 650 MG PO (21:54)
[2023-11-03 23:14] VITALS: BP 156/85
[2023-11-04 03:22] VITALS: BP 150/80
[2023-11-04 06:00] VITALS: BMI 32.8
[2023-11-04 06:50] LABS: Hematocrit 40.9 % (39.0-52.0); Hemoglobin 14.3 g/dL (13.0-18.0); Mean Corpuscular Hgb 34.3 pg (27.0-31.0); Mean Corpuscular Volume 98.1 fL (80.0-94.0); Mean Platelet Volume 9.9 fL (7.4-10.4); Platelet Count 169 10^3/uL (130-400); Red Blood Cell Count 4.17 10^6/uL (4.70-6.10); Red Cell Dist. Width 12.7 % (11.5-14.5); White Blood Cell Count 7.7 10^3/uL (4.8-10.8)
--- NOTE | 2023-11-04 07:10 | W.PN.HOSP.TC ---
Today's Communication/Plan
-
discharge
Assessment / Plan
Assessment / Plan
Physical Exam
Gen: No acute distress. Appears comfortable at this time
HEENT: Normocephalic Atraumatic Hard of Hearing PERRLA
Neck: supple, no Carotid bruits
Lungs: Clear to Auscultation b/l
Cardio: RRR S1 S2
Abdomen: soft nontender bowel sounds present
TECHNICAL ARTIST: AOx3
Ext: lower ext edema +1. LLE erythema tenderness thigh just above knee noted significantly improved from day prior (suspect resolving contusion)
Psych: calm cooperative
HPI 83M HX TIA on DAPL, Prx AF on DAPL, HLD on statin p/w acute short term memory loss could not remember name of the accounting advisory services manager when watching news which was unusual for patient. Urinalysis suggestive UTI. B12 deficiency also noted. CT head
concerning for Lacunar infarct. MRI would note no acute infarcts but chronic infarcts were noted.
#CT appreciated lacuna infarct at Lt basal ganglia
#MRI appreciated appreciated no acute infarcts however small chronic infarcts b/l cerebellar hemispheres and small chronic intraparenchymal microhemorrhages Lt frontal #temporal lobes and cerebellum (possible amyloid angiopathy) were noted.
#Short term memory issues potentially due to vascular dementia
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
-Neuro Cardio Consults appreciated
-Per Discussion w/ neuro and cardio, Plavix to be discontinued in favor of Eliquis (given hx concerning for afib), ASA was briefly continued before discontinuation as well following further discussion.
-A1c 4.9 non diabetic
-LDL at goal <70
- Home Atorvastatin increased to 40 mg
-ECHO appreciated preserved EF 60-65% bioprosthetic aortic valve no significant changed from prior ECHO Jan 2023
-ST appreciated appropriate regular diet thin liquids, meds whole w/ liquid one at a time.
-PT eval appreciated no need
-OT eval appreciated outpatient therapy recommended for further cognitive assessment/retraining for memory concerns.
#B12 deficiency
supplementation started
#Lower ext Lymphedema
#LLE erythema thigh just above knee (resolving)
#hx DVT
Venous duplex eval appreciated chronic DVT RLE possible superimposed acute component unable to rule out
started on Eliquis as above
HLD
home Atorvastatin increased from 20 mg to 40 mg as above
UA suggestive UTI
suspect earlier confusion d/t delirium 2/2 UTI, resolving
- f/u UCx contaminated no significant growth noted
-afebrile no significant leukocytosis denies dysuria
-patient otherwise symptomatically improved, confusion resolved
- empiric ceftriaxone to transition to Cefdinir for 5 more days.
BPH
- stable
- on Finasteride and Tamsulosin
Essential HTN
- cont Home Avapro Metoprolol
HX RA
- stable
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
HX Gout
- stable
- cont allopurinol
DVT Px: SCD
Code: Full
Medically stable for discharge home with outpatient follow up recommendations. (VN services offered as per case mgmt but declined)
Discussed with patient, patient's Chanda, nurse, Cardiology, and Neurology
Total Time Preparing Discharge __50 minutes including examination of the patient, summary of the hospital stay, instructions for continuing care to all relevant caregivers; and preparation of discharge records, prescriptions, and referral
forms if necessary.
Anticipated Discharge: Today
Subjective/Interval History
-
Date of Service: November 04, 2023
Seen and examined at bedside in no acute distress. Reports overall feeling well. Denies new acute issues at this time. LLE thigh erythema swelling significantly improved. Eager to go home
Objective Data
-
Labs:
Laboratory Results
11/04/23
06:26
WBC 7.7
Hgb 14.3
Hct 40.9
Plt Count 169
Sodium Pending
Potassium Pending
Chloride Pending
Carbon Dioxide Pending
BUN Pending
Creatinine Pending
Glucose Pending
Calcium Pending
Vital Signs:
Vital Signs
Temp Pulse Resp BP Pulse Ox
98.3 F 74 18 150/80 96
11/04/23 03:22 11/04/23 03:22 11/04/23 03:22 11/04/23 03:22 11/04/23 03:22
I&O
11/03/23 11/04/23 11/05/23
06:59 06:59 06:59
Intake Total 400 / 400 900 / 900
Output Total 900 / 900
Balance -500 / -500 900 / 900
[2023-11-04 07:20] LABS: Blood Urea Nitrogen 15 mg/dl (9-20); Calcium 9.3 mg/dl (8.4-10.2); Carbon Dioxide 30 mmol/L (22-30); Chloride 104 mmol/L (98-107); Estimated Creatinine Clearance 72 ml/min; Glucose 105 mg/dl (70-99); Potassium 3.7 mmol/L (3.5-5.1); Sodium 140 mmol/L (135-145); eGFR > 60.00
[2023-11-04 07:34] VITALS: BP 113/83
[2023-11-04] MEDS: PLAQUENIL 400 MG PO (08:12)
[2023-11-04] MEDS: AVAPRO PO (08:12)
[2023-11-04] MEDS: TOPROL XL 75 MG PO (08:13)
[2023-11-04] MEDS: VITAMIN B-12 1000 MCG PO (08:13)
[2023-11-04] MEDS: ELIQUIS 5 MG PO (08:13)
[2023-11-04] MEDS: ZYLOPRIM 300 MG PO (08:20)
[2023-11-04] MEDS: LOW STRENGTH ASPIRIN 81 MG PO (08:20)
[2023-11-04] MEDS: AZULFIDINE 1000 MG PO (08:22)
--- NOTE | 2023-11-04 08:49 | W.PN.NEURO.1 ---
Today's Communication / Plan
-
.
Neuro Assessment/Plan
Assessment
This is an 83-year-old right-handed male with a PMH of HTN, HLD, TIA, intracranial stenosis, one episode of post-CABG Afib, and RLE DVT 2020 attributed to wearing an ankle brace, and CHF who has presented to the hospital on 11/02/23 with report of
acute onset confusion. CT head was obtained on arrival and is suggestive of a 1cm nonhemorrhagic lacunar infarct in the anterior aspect of the putamen and anterior limb of the internal capsule on the left, new since previous CT head imaging in
12/2022. He was not a candidate for TNK/IAT due to NIHSS 0. MRI brain is negative for any acute findings but demonstrates chronic small bilateral cerebellar ischemic infarcts and MRA head/neck redemonstrates known intracranial stenosis.
Patient was previously evaluated by our inpatient Neurology service in December 2022 for a 10-15 minute episode of speech difficulty and a 24 hour period of confusion. MRI brain was negative. He completed 21 days of DAPT following this event in
12/2022 and then continued on Plavix 75mg daily only. He is currently following as an outpatient with Neurology Dr. Juan Pablo Barahona at [facility].
-UA suggestive of UTI, urine culture likely contaminant.
-MRI brain 11/03/23: No MRI evidence for acute infarct. Small chronic infarcts in both cerebellar hemispheres. Small chronic intraparenchymal microhemorrhages in the left frontal lobe, left temporal lobe, and left cerebellum which appear unchanged
(possibly amyloid angiopathy). Moderate periventricular white matter leukoaraiosis. Moderate diffuse cerebral and cerebellar volume loss. Mild paranasal sinus mucosal disease.
-MRA head/neck 11/03/23: Severe calcific atherosclerotic plaque in both proximal internal carotid arteries causing a 25-50% diameter stenosis on the right and less than 25% diameter stenosis on the left. CHRONIC COMPLETE OCCLUSION of the PROXIMAL
LEFT VERTEBRAL ARTERY. No MRA evidence for right vertebral artery stenosis or occlusion. Severe calcific atherosclerotic plaque in the proximal left subclavian artery causing 70% diameter stenosis. 50-70% diameter stenosis in the proximal
brachiocephalic artery.
I. MRI brain negative for acute stroke. Duration of symptoms too long to be supportive of TIA.
II. Small chronic b/l cerebellar ischemic infarcts and small chronic intraparenchymal microhemorrhages demonstrated on MRI brain imaging, unrelated to current symptoms. Known intracranial stenosis redemonstrated on MRA head/neck imaging.
III. Toxic metabolic encephalopathy possibly causing transient confusion, urinalysis suggestive of UTI. UC suggestive of contaminant. LLE with red/warm areas and edema.
IV. History of paroxysmal Afib once following CABG, refused to get LINQ monitor placed as previously suggested, not on anticoagulation.
V. Possible mild cognitive impairment at baseline.
. Vitamin B12 deficiency.
VII. History of RLE DVT.
Plan
-Patient not agreeable to LINQ monitoring but agreeable to anticoagulation. MRI brain negative for acute stroke, but suggestive of chronic b/l small cerebellar ischemic infarcts, new from MRI brain imaging in 12/2022. Reasonable to start OAC for
stroke prevention given history of paroxysmal Afib, per Cardiology. Discontinue antiplatelet therapy with initiation of OAC.
-Goal normotension as this event occurred 24 hours ago.
-Infectious workup/treatment per primary team.
-LLE ultrasound pending.
-LDL goal <70. LDL is 60. Home atorvastatin was increased from 20mg to 40mg daily, okay to continue increased dose given chronic small infarcts demonstrated on MRI brain.
-Goal normoglycemia, hbA1c is 4.9.
-B12 level is low at 208. Continue newly initiated cyanocobalamin 1000mcg PO daily.
-Neurological checks per unit guidelines. Okay to discontinue NIHSS.
-Provide patient with a stroke education packet.
-Smoking cessation counseling.
-PT/OT/ST evaluations.
-DVT prophylaxis.
-Patient should undergo Neuropsychological testing as an outpatient.
-Patient should follow-up with Neurology Dr. Barahona as an outpatient in about 4 weeks.
-Neurology will follow as-needed, please contact our service with any questions/concerns.
Subjective/Objective
Subjective Data
Date of Service: November 04, 2023
No acute events overnight. Patient reports feeling back to his baseline today, he denies any further confusion and is not urinating frequently anymore. He denies any headache, dizziness, vision changes, speech/swallow difficulty, numbness, weakness,
chest pain, palpitations, and shortness of breath.
Objective Data
Vital Signs
Temp Pulse Resp BP Pulse Ox
97.5 F 80 16 113/83 98
11/04/23 07:34 11/04/23 07:34 11/04/23 07:34 11/04/23 07:34 11/04/23 07:34
Lab Results
11/04/23 06:26
11/04/23 06:26
Sodium 140 mmol/L (135-145) 11/04/23 06:26
Potassium 3.7 mmol/L (3.5-5.1) 11/04/23 06:26
BUN 15 mg/dl (9-20) 11/04/23 06:26
Glucose 105 mg/dl (70-99) H 11/04/23 06:26
Calcium 9.3 mg/dl (8.4-10.2) 11/04/23 06:26
LDL Cholesterol, Calc 60 mg/dl 11/03/23 05:23
Vitamin B12 208 pg/ml (239-931) L 11/03/23 05:23
Patient Allergies
morphine Allergy (Verified 11/02/23 18:08)
Nausea / Vomiting
Enviornmental Allergy (Uncoded 01/04/23 09:37)
Sneezing, runny nose, eyes watery
LDL Level: <70, continue statin
Review of Systems
-
History Source: Patient
EENT: Negative Blurry Vision, Decreased Vision or Swallowing Difficulty
Respiratory: Negative Cough or Trouble Breathing
Cardiac: Negative Chest Pain or Palpitations
Abdomen/GI: Negative Nausea
Genitourinary: Negative Dysuria or Frequency
Skin: Other (LLE redness, reports this is improved)
Neuro: Negative Dizzy, Headache, Weakness, Numbness, Ataxia, Tremors or Speech Problem
Physical Exam
-
General: Well Developed, Well Nourished and No Apparent Distress
Eyes: No Ptosis and PERRLA
Data Reviewed
-
CT Head: Report Reviewed and Image Reviewed
MRI Head: Report Reviewed and Image Reviewed
MRA Head: Report Reviewed and Image Reviewed
MRA Neck: Report Reviewed and Image Reviewed
Echocardiogram: Report Reviewed
Labs: Report Reviewed
Lipid Profile: Report Reviewed
HgbA1C: Report Reviewed
P2Y12: Ordered
Reviewed with: Physician and Patient
Medications
-
Active Medications
Generic Name Dose Route Start Last Admin
Trade Name Freq PRN Reason Stop Dose Admin
Acetaminophen 650 mg 11/02/23 21:45
Acetaminophen 650 Mg Rectal Suppository RECTAL 11/30/23 21:44
Q4HPRN PRN
GATICA, mild pain, or temp >100.4F
Acetaminophen 650 mg 11/02/23 21:45 11/03/23 21:54
Acetaminophen 325 Mg Tablet PO 11/30/23 21:44 650 mg
Q4HPRN PRN Administration
GATICA, mild pain, or temp >100.4F
Allopurinol 300 mg 11/03/23 08:00 11/04/23 08:20
Allopurinol 300 Mg Tablet PO 12/01/23 07:59 300 mg
DAILY ELIA Administration
Apixaban 5 mg 11/03/23 20:00 11/04/23 08:13
Apixaban (Eliquis) 5 Mg Tablet PO 12/01/23 19:59 5 mg
BID ELIA Administration
Aspirin 81 mg 11/03/23 08:00 11/04/23 08:20
Aspirin 81 Mg Chewable Tablet PO 12/01/23 07:59 81 mg
DAILY ELIA Administration
Atorvastatin Calcium 40 mg 11/02/23 22:00 11/03/23 21:48
Atorvastatin (Lipitor) 40 Mg Tablet PO 11/30/23 21:59 40 mg
HS ELIA Administration
Ceftriaxone Sodium 1,000 mg 11/03/23 12:00 11/03/23 13:31
Ceftriaxone 1000 Mg / 10 Ml Vial IV 1,000 mg
Q24H ELIA Administration
Cyanocobalamin 1,000 mcg 11/03/23 16:00 11/04/23 08:13
Cyanocobalamin 1,000 Mcg Tablet PO 12/01/23 15:59 1,000 mcg
DAILY ELIA Administration
Finasteride 5 mg 11/03/23 18:00 11/03/23 17:47
Finasteride 5 Mg Tablet PO 12/01/23 17:59 5 mg
QPM ELIA Administration
Hydroxychloroquine Sulfate 400 mg 11/03/23 08:00 11/04/23 08:12
Hydroxychloroquine 200 Mg Tablet PO 12/01/23 07:59 400 mg
DAILY ELIA Administration
Irbesartan 300 mg 11/03/23 08:00 11/04/23 08:12
Irbesartan 300 Mg Tablet PO 12/01/23 07:59 Not Given
DAILY ELIA
Metoprolol Succinate 75 mg 11/03/23 08:00 11/04/23 08:13
Metoprolol 50 Mg Extended Release Tablet PO 12/01/23 07:59 75 mg
DAILY ELIA Administration
Sodium Chloride 0 flush 11/02/23 22:00 11/02/23 21:06
Sodium Chloride 0.9% (Flush) Syringe IV 11/30/23 21:59 1 flush
PER PROTOCOL ELIA Administration
Sterile Water 10 ml 11/02/23 12:00 11/03/23 13:31
Sterile Water For Injection 10 Ml Vial IV 11/30/23 11:59 10 ml
Q24H ELIA Administration
Sulfasalazine 1,000 mg 11/03/23 08:00 11/04/23 08:22
Sulfasalazine 500 Mg Tablet PO 11/13/23 07:59 1,000 mg
BID ELIA Administration
Tamsulosin HCl 0.4 mg 11/03/23 18:00 11/03/23 17:47
Tamsulosin 0.4 Mg Capsule PO 12/01/23 17:59 0.4 mg
QPM ELIA Administration
Home Medications
�Medication �Instructions �Recorded
allopurinol 300 mg tablet 300 mg PO DAILY Gout 02/16/16
atorvastatin 20 mg tablet (Lipitor) 20 mg PO HS High Cholesterol 01/04/23
calcium carbonate (Calcium 600) 600 mg PO DAILY Supplement 01/04/23
cholecalciferol (vitamin D3) 50 50 mcg PO DAILY Supplement 01/04/23
mcg (2,000 unit) capsule (Vitamin
D3)
finasteride 5 mg tablet 5 mg PO QPM Urinary Issue 01/04/23
hydroxychloroquine 200 mg tablet 400 mg PO DAILY rheumatoid 01/04/23
(Plaquenil) arthritis
irbesartan 300 mg tablet (Avapro) 300 mg PO DAILY Blood Pressure 01/04/23
metoprolol succinate 50 mg 75 mg PO DAILY blood pressure/A fib 01/04/23
tablet,extended release 24 hr
(Toprol XL)
sulfasalazine 500 mg tablet 1,000 mg PO BID rheumatoid 01/04/23
arthritis
tamsulosin 0.4 mg capsule (Flomax) 0.4 mg PO QPM Urinary Issue 01/04/23
clopidogrel 75 mg tablet 75 mg PO DAILY #20 tabs 01/05/23
--- NOTE | 2023-11-04 09:13 | W.PN.CD ---
Addendum entered and electronically signed by Navdeep Scott MD 11/04/23 10:16:
-
Reviewed with medicine and neurology. Agree with plan to NOT USE ASA with Eliquis at this time.
-
-
Original Note:
Today's Communication / Plan
-
Agree with Eliquis and ASA but ma be best to stop ASA in 3 months vs accept increased risk of bleeding and continue with combined treatment
Continue BP control and Lipid control
Agree with correcting B12
Cardiology will sign off
He will see his outpatient collection coordinator in followup
-
-
Impression / Plan
-
Change in mental status, improved
- No acute CVA on MRI
- Unclear etiology
- Hx of prior TIA, MRI shows old strokes
- Remote AFib in 2016, periop heart surgery
- Moved to [facility] this admit, seems reasonable, off Plavix, still on ASA. Not sure if we have good data for current combined regimen, but if no bleeding in future he may benefit from antiplatelet + Oral anticoag given extensive intracranial
atherosclerosis
- Echo looks good
UTI
Bio AVR, 2016, normal function
CAD s/p CABG 2016, no angina
HTN
Had some LE edema, erythema left leg:
hx DVT
low B12
- Defer to medicine
Mixed hyperlipidemia, LDL 60
Subjective:
No CP. Seems alert and appropriate
Physical Exam
Vital Signs/Labs
Vital Signs
Temp Pulse Resp BP Pulse Ox
97.5 F 80 16 113/83 98
11/04/23 07:34 11/04/23 07:34 11/04/23 07:34 11/04/23 07:34 11/04/23 07:34
11/03/23 11/04/23 11/05/23
06:59 06:59 06:59
Actual Weight 107.104 kg 103.6 kg
11/04/23 06:26
11/04/23 06:26
Magnesium 1.8 mg/dl (1.6-2.3) 11/02/23 19:06
Triglycerides 61 mg/dl (10-149) 11/03/23 05:23
LDL Cholesterol, Calc 60 mg/dl 11/03/23 05:23
VLDL Cholesterol, Calc 12 mg/dl (0-30) 11/03/23 05:23
HDL Cholesterol 55 mg/dl 11/03/23 05:23
Physical Exam
Constitutional: No acute distress
EENT: Anicteric
Cardiovascular: Rhythm & rate is regular, Diastolic murmur absent and S1S2 is normal
Respiratory: Respiratory effort normal and Lungs clear to auscul.
GI: Soft and Distention absent
Neuro/Psych: AO x 3
Data Reviewed
-
Date of Service: November 04, 2023
[2023-11-04 11:15] VITALS: BP 163/81
[2023-11-04] MEDS: ROCEPHIN 1000 MG IV (11:19)
[2023-11-04] MEDS: STERILE WATER FOR INJECTION 10 ML IV (11:22)
--- NOTE | 2023-11-04 15:12 | W.DCSUMMARY ---
Discharge Summary
Discharge Data
Date of Admission: 11/02/23
Date of Discharge: 11/04/23
-
Pending Results: No
Discharge Plan
-
Patient Disposition: Home (Routine Discharge)
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
Complete Occlusion Left Vertebral Artery
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
Urinary tract infection, possibly contributing to confusion since resolved
B12 deficiency (can also cause memory/cognitive impairment)
Chronic Right Lower Extremity DVT
Hyperlipidemia
BPH
Rheumatoid Arthritis
Gout
Condition: Fair
Diet: Low Cholesterol and 2 Gram Sodium
Activity: As tolerated
Driving Restrictions: Not until seen by your Dr
Bathing Restrictions: None
Blood Work: Please repeat CBC and BMP with primary care provider in 1 week of discharge.
Repeat B12 level with primary care provider in 1 month of discharge.
Others Tests: Carotid US in 3 months with primary care provider or neurology
Other Services: OT
Activity Restrictions/Additional Instructions:
Please follow up with your primary care provider in 1 week of discharge, your counter stitcher in 2 weeks of discharge, and your neurologist in 4 weeks of discharge. Neuropsychiatry follow up in 2-4 weeks of discharge has also been recommended.
A script has been provided for outpatient Occupational Therapy.
Atorvastatin dose has been increased and Plavix has been replaced with Eliquis anticoagulation for greater stroke risk reduction (Eliquis specifically has been started due to concern paroxysmal atrial fibrillation).
Cefdinir has been prescribed for 5 more days to complete treatment urinary tract infection.
B12 supplementation has been prescribed for B12 deficiency.
Please take medications as prescribed/recommended and follow up with primary care provider and/or other healthcare provider involved in your care for refills and/or further adjustment to your medication regimen as necessary.
Referrals:
Curtis Webster PSY [Specified Professional Personl] - in two to four weeks
Jessika Benson MD [Family Provider] - in one week
Prescriptions:
New
Eliquis 5 mg Tablet
5 mg PO BID 30 Days Qty: 60 0RF
atorvastatin 40 mg Tablet
40 mg PO HS 30 Days Qty: 30 0RF
cyanocobalamin (vitamin B-12) 1,000 mcg Tablet
1,000 mcg PO DAILY 30 Days Qty: 30 0RF
cefdinir 300 mg Capsule
300 mg PO Q12 5 Days Qty: 10 0RF
Continued
allopurinol 300 MG tablet
300 mg PO DAILY
sulfasalazine 500 mg Tablet
1,000 mg PO BID
metoprolol succinate [Toprol XL] 50 mg Tablet Extended Release 24 Hr
75 mg PO DAILY
calcium carbonate [Calcium 600] 600 mg calcium (1,500 mg) Tablet
600 mg PO DAILY
tamsulosin [Flomax] 0.4 mg Capsule
0.4 mg PO QPM
hydroxychloroquine [Plaquenil] 200 mg Tablet
400 mg PO DAILY
finasteride 5 mg Tablet
5 mg PO QPM
irbesartan [Avapro] 300 mg Tablet
300 mg PO DAILY
cholecalciferol (vitamin D3) [Vitamin D3] 50 mcg (2,000 unit) Capsule
50 mcg PO DAILY
Discontinued
atorvastatin [Lipitor] 20 mg Tablet
20 mg PO HS
clopidogrel 75 mg Tablet
75 mg PO DAILY Qty: 20 0RF
Discharge Orders:
Discharge Patient (As Directed); Ordered 11/04/23
Ordered By: Paco Morales
Discharge Date and Time
Print Language: SINHALA
--- NOTE | 2023-11-04 15:48 | CM ---
MD entered order for discharge.
Pt said his Chanda will drive him home.
Offered VN he declined .
PLAN Home no needs
[2023-11-04 15:50] VITALS: BP 150/90
== END 2023-11-04 16:25 | disposition home or self-care (01) | DRG 68 ==
LOC: 3 WEST ACU 20:59
PROVIDERS: Registered Nurse; ADMITTING PHYSICIAN Internal Medicine; ATTENDING PHYSICIAN Internal Medicine; CONSULT PHYSICIAN Internal Medicine Cardiovascular Disease; EMERGENCY PHYSICIAN Emergency Medicine; FAMILY PHYSICIAN Family Medicine; OTHER PHYSICIAN Psychiatry & Neurology Neurology
DX: I65.02 Occlusion and stenosis of left vertebral artery (principal); I50.32 Chronic diastolic (congestive) heart failure; N39.0 Urinary tract infection, site not specified; I82.511 Chronic embolism and thrombosis of right femoral vein; I82.531 Chronic embolism and thrombosis of right popliteal vein; I11.0 Hypertensive heart disease with heart failure; F01.50 Vascular dementia, unspecified severity, without behavioral disturbance, psychotic disturbance, mood disturbance, and anxiety; I35.0 Nonrheumatic aortic (valve) stenosis; Z95.3 Presence of xenogenic heart valve; M06.9 Rheumatoid arthritis, unspecified; I77.1 Stricture of artery; I66.21 Occlusion and stenosis of right posterior cerebral artery; I65.22 Occlusion and stenosis of left carotid artery; R29.700 NIHSS score 0; I25.10 Atherosclerotic heart disease of native coronary artery without angina pectoris; Z95.1 Presence of aortocoronary bypass graft; I48.0 Paroxysmal atrial fibrillation; M10.9 Gout, unspecified; E53.8 Deficiency of other specified B group vitamins; E78.2 Mixed hyperlipidemia; F17.290 Nicotine dependence, other tobacco product, uncomplicated; I89.0 Lymphedema, not elsewhere classified; N40.0 Benign prostatic hyperplasia without lower urinary tract symptoms; R41.82 Altered mental status, unspecified; Z96.653 Presence of artificial knee joint, bilateral; Z79.82 Long term (current) use of aspirin; Z79.02 Long term (current) use of antithrombotics/antiplatelets; Z79.899 Other long term (current) drug therapy; Z86.73 Personal history of transient ischemic attack (TIA), and cerebral infarction without residual deficits; Z85.828 Personal history of other malignant neoplasm of skin; Z88.5 Allergy status to narcotic agent
CPT/HCPCS: 70450; 70544; 70548; 70551; 80048; 80053; 80061; 81003; 81015; 82607; 82728; 82746; 83036; 83735; 84443; 85027; 85576; 87086; 92523; 92610; 93005; 93306; 93970; 96374; 96375; 97162; 97166; 99285; Q9950

== ENCOUNTER → 2023-11-11 09:15 | Outpatient (REF) | payer OTHER, SELFPAY ==
[2023-11-11 11:19] LABS: % Basophils 1.2 % (0-2); % Eosinophils 4.3 % (0-6); % Immature Granulocytes 0.3 % (0-0.5); % Lymphocytes 17.3 % (20.5-51.1); % Monocytes 11.2 % (1.7-9.3); % Neutrophils 65.7 % (42.2-75.2); Absolute Basophils 0.1 10^3/uL (0-0.2); Absolute Eosinophils 0.3 10^3/uL (0-0.7); Absolute Lymphocytes 1.3 10^3/uL (1.2-3.4); Absolute Monocytes 0.8 10^3/uL (0.1-0.6); Absolute Neutrophils 4.9 10^3/uL (1.4-6.5); Hematocrit 40.2 % (39.0-52.0); Hemoglobin 13.8 g/dL (13.0-18.0); Mean Corp Hgb Conc. 34.3 g/dL (33.0-37.0); Mean Corpuscular Hgb 32.9 pg (27.0-31.0); Mean Corpuscular Volume 95.9 fL (80.0-94.0); Mean Platelet Volume 10.2 fL (7.4-10.4); Nucleated Red Blood Cells % 0 % (-); Platelet Count 239 10^3/uL (130-400); Red Blood Cell Count 4.19 10^6/uL (4.70-6.10); Red Cell Dist. Width 12.6 % (11.5-14.5); White Blood Cell Count 7.5 10^3/uL (4.8-10.8)
[2023-11-11 12:02] LABS: Blood Urea Nitrogen 22 mg/dl (9-20); Calcium 9.1 mg/dl (8.4-10.2); Carbon Dioxide 28 mmol/L (22-30); Chloride 104 mmol/L (98-107); Glucose 124 mg/dl (70-99); Potassium 4.6 mmol/L (3.5-5.1); Sodium 139 mmol/L (135-145); eGFR > 60.00
== END ==
LOC: REG 09:15
PROVIDERS: ATTENDING PHYSICIAN Family Medicine
DX: I50.30 Unspecified diastolic (congestive) heart failure (principal); I10 Essential (primary) hypertension; D64.9 Anemia, unspecified
CPT/HCPCS: 36415; 80048; 85025

== ENCOUNTER 2023-12-05 20:13 | Observation (INO) | payer OTHER, SELFPAY ==
[2023-12-05 14:37] VITALS: BP 196/98
[2023-12-05 15:27] VITALS: BP 161/72
--- NOTE | 2023-12-05 15:41 | ED.GENMED ---
History of Present Illness
General
Chief Complaint: Change in Mental Status
Source: patient, spouse and family
Exam Limitations: none
Time Seen by Provider: 12/05/23 15:30
Nursing documentation reviewed up to this point in time: agreed with
History of Present Illness
History of Present Illness:
83-year-old male presents emergency department due to confusion today, as well as nausea. He was cooking eggs on a glass top stove without any pain, and was confused as to mealtime and other things. He presented similarly when he had a urinary
tract infection.
Past History
Past History
ED Past Medical History: CAD and Other (Aortic valve replacement, gout)
ED Past Surgical History: Cardiac
Social History
Tobacco: Smoker
Alcohol: Daily
Drug: None
Personal:
Living: with family
Review of Systems
Review of Systems
Allergies reviewed?: Yes
All Other Systems: Not applicable
Constitutional: Reports no symptoms
EENT: Reports no symptoms
Respiratory: Reports no symptoms
Cardiac: Reports no symptoms
ABD/GI: Reports nausea
: Reports no symptoms
Musculoskeletal: Reports no symptoms
Skin: Reports no symptoms
Neurological: Reports no symptoms
Endocrine: Reports no symptoms
Hematologic/Lymphatic: Reports no symptoms
Psychiatric: Reports no symptoms
Phy Exam
Physical Exam
Physical Exam:
Physical Exam
General: Afebrile
Neck: supple. no meningeal signs. normal posterior pharynx
Heart: s1/s2 regular rate and rhythm, no murmur. equal radial
pulses.
HEENT: Pupils equal round reactive to light, EOMI
Lungs: no acute respiratory distress. clear bilaterally
Abdomen: normal bowel sounds. not tender. no CVAT
Neuro: alert and oriented. no focal neurological deficits cranial nerves II through XII intact
Skin: no rash
Psychiatric: well kept. interactive and cooperative
Extremities: no edema. no calf tenderness. negative homans. good distal pulses
Course
Orders/Labs/Results
Orders:
Orders
12/05/23 Breakfast
Regular
At Your Request: Full Participation
Does patient need a safe tray?: No
12/05/23 15:31
Complete Blood Count/With Diff Urgent
Comprehensive Metabolic Panel Urgent
Urinalysis Reflex To Culture Urgent
Date Specimen was Collected: 12/05/23
Time Specimen was Collected: 15:29
Urine Microscopic Reflex Cult Urgent
Urine Culture Urgent
PARVIN Source: U
Specimen Description:
Date Specimen was Collected: 12/05/23
Time Specimen was Collected: 15:29
12/05/23 15:40
CT Head W/o Iv Contrast Urgent
Comment:
Reason For Exam: confusion
12/05/23 16:54
Cefepime HCl [Maxipime] 2,000 mg IV NOW STA
12/05/23 17:23
Sterile Water [Sterile Water For Injection] 20 ml .ROUTE .STK-MED
12/05/23 19:54
Admit/Transfer Patient As Directed
Co-Sign Provider:
Level of Care: Observation services
Assign to:: Telemetry
Physician / Group: Fabio
Diagnosis: Acute TME
Reason for Telemetry: Arrhythmia
Date to Stop Telemetry: 12/08/23
Time to Stop Telemetry: 11:00
PRN Pain Medication Management As Directed
May give lesser potent ordered pain med per pt: Yes
preference::
Protocol:: Medication orders for pain may be administered in a
manner that supports deferring to patient preference
when the pt is:
- Requesting an ordered lesser potent pain medication.
Least to most potent pain medications are defined
as: acetaminophen < NSAID < tramadol < opioids
(morphine, oxycodone, hydromorphone).
- Requesting a lesser dose of the same medication IF
ORDERED.
- Requesting a less intrusive route of administration
if both routes are prescribed by the provider (PO <
IV).
12/05/23 19:56
Code Status As Directed
Resuscitation Status: Full Code
12/05/23 20:20
COVID-19 Antigen Urgent
Source: Nasal Swab
12/05/23 21:44
0.9% Sodium Chloride [Nss (Preservative Free)] See Protocol IV PRN PRN
Acetaminophen [Tylenol] 650 mg PO Q4HPRN PRN
Apixaban [Eliquis] 5 mg PO BID
CefTRIAXone [Rocephin] 1,000 mg IV Q24H
FOLic ACID [Folvite] 1 mg 0.9% Sodium Chloride 50 ml [Nss] 50 ml IV DAILYPRN
Lorazepam [Ativan] 1 mg IV Q1HPRN PRN
Lorazepam [Ativan] 1 mg PO Q2HPRN PRN
Lorazepam [Ativan] 2 mg IV Q1HPRN PRN
Sulfasalazine [Azulfidine] 1,000 mg PO BID
12/05/23 21:44
Case Management Consult Once
Case Management Consult: Other
Comment: Substance abuse counseling
DIETARY CONSULT Routine
Reason for Consult: Nutrition support, possible refeeding guidelines
Activity As Directed
Activity Level: Ambulate
With Assistance
Bladder Scan As Directed
Follow Bladder Retention/Intermittent Cath Algorithm?: Yes
PRN if no void in __ hours: 6
Frequency: Per Retention Algorithm
If Bladder Scan Result >: 400
then:: Straight cath
EKG with chest pain [ECG as needed] As Directed
ECG as needed for:: Chest Pain
I/O [Intake/ Output] As Directed
Frequency: Per unit guidelines
MSAS SCORE As Directed
MSAS Score 0-4: Repeat MSAS every 2 hours until 0-4 for three consecutive assessments, then every 4 hours x 48
hours.
MSAS Score 5-7: For MILD withdrawl symptoms. Repeat MSAS and RASS every 2 hours
MSAS Score 8-11: For MODERATE withdrawal symptoms. Repeat MSAS and RASS every 1 hour. Consider ICU or IMU
level of care.
MSAS Score > 11: For SEVERE withdrawal symptoms. Repeat MSAS and RASS every 1 hour. Notify provider, consider
ICU level of care.
MSAS Additional Instructions: If no improvement or no decrease in score from severe to moderate within 12
hours, consult psychiatry
MSAS Notify Provider: Notify provider if patient requires more than 10 mg of Lorazepam in eight hour period.
Neurological Checks As Directed
Frequency: q4h
Orthostatic Vital Signs As Directed
Orthostatic VS Frequency: BID
Straight Cath As Directed
Frequency: Per Retention Algorithm
Additional Instructions: straight cath as needed per acute urinary retention algorithm for 24 hrs
Additional Instructions: for bladder scan greater than 400 mL
Vital Signs As Directed
Frequency: Per unit guidelines
Oxygen Therapy [O2 Therapy] [RESP] Routine
Titrate/Wean O2 to maintain O2 sat greater than (%): 94
Ot Eval And Treat Routine
PT Consult [Pt Eval And Treat] Routine
Activity Level: Ambulate
With Assistance
12/05/23 22:00
Atorvastatin [Lipitor] 20 mg PO HS
Finasteride [Proscar] 5 mg PO HS
Tamsulosin [Flomax] 0.4 mg PO HS
12/06/23 06:00
Basic Metabolic Panel IN AM
Complete Blood Count/No Diff IN AM
12/06/23 08:00
Allopurinol [Zyloprim] 300 mg PO DAILY
FOLic ACID [Folvite] 1 mg PO DAILY
Hydroxychloroquine [Plaquenil] 400 mg PO DAILY
Irbesartan [Avapro] 300 mg PO DAILY
Metoprolol Xl [Toprol Xl] 75 mg PO DAILY
Thiamine Injection 200 mg IV Q12
12/08/23 11:00
DC Protocol for Telemetry ONCE
12/09/23 08:00
Thiamine HCl [Vitamin B1] 100 mg PO BID
Abnormal Lab Results
12/05/23
15:31
RBC 4.11 L 10^6/uL
(4.70-6.10)
Hct 38.5 L %
(39.0-52.0)
MCH 32.8 H pg
(27.0-31.0)
Absolute Lymphs (auto) 0.6 L 10^3/uL
(1.2-3.4)
Neutrophils % 84.4 H %
(42.2-75.2)
Lymphocytes % 8.2 L %
(20.5-51.1)
Glucose 147 H mg/dl
(70-99)
Ur Occult Blood Reflex 1+ A
(Negative)
Leukocyte Esterase Rfl 2+ A
(Negative)
Urine WBC (Reflex) 70-80 A /HPF
(0-5)
12/05/23 15:31
12/05/23 15:31
Vital Signs
Initial and Last Documented VS:
Initial Vital Signs
Temp Pulse Resp BP Pulse Ox
98.0 F 91 16 196/98 98
12/05/23 14:37 12/05/23 14:37 12/05/23 14:37 12/05/23 14:37 12/05/23 14:37
Last Documented Vital Signs
Temp Pulse Resp BP Pulse Ox
98.0 F 91 16 150/66 96
12/05/23 14:37 12/05/23 14:37 12/05/23 14:37 12/05/23 16:00 12/05/23 16:45
MDM/Problems Addressed
Differential Diagnosis Includes:
CVA, UTI
MDM/Problems Addressed:
83-year-old male with altered mental status, UTI. IV cefepime ordered. Admit to hospitalist.
Chronic conditions affecting care: Other (Dementia)
Acute Exacerbation and/or Progression of Chronic Illness: Other (Dementia)
*Radiology
Radiology exam reviewed: radiology read reviewed (CT head no acute finding)
*Pulse Oximetry
Patient hypoxic: no
*EKG
Interpreted by ED Provider?: NA
*Senior It Architect Interpretation
Rate: Senior It Architect- N/A
*Critical Care Note
Total Time (30-74mins, 75-104mins- exclusive of procedures): Not Applicable
Patient Management
Social determinants of health affecting care: Living situation
Discussion with other providers: Hospitalist
Escalation/DeEscalation of care consider admission/obs:
admit indicated
ED Attending Note
-
Portions of this chart may have been created with voice recognition software.� Occasional wrong word or��sound alike� substitutions may have occurred due to the inherent limitations of voice recognition software.
Discharge Plan
Departure
Patient Disposition: Admit
Date of Disposition: 12/05/23
Time of Disposition: 17:32
Admit to: Telemetry
Presentation/result/management discussed w/ accepting MD/DO: Hospitalist
Patient with high blood pressure during this ER visit?: Yes
Condition: Good
Discharge Problem:
Acute UTI, Acute alteration in mental status
Interventions
Interventions:
*Risk Screen - Suicide Last Done: 12/05/23 15:30
*General Assessment Last Done: 12/05/23 15:30
*Neglect/Abuse Screening Last Done: 12/05/23 15:30
*Nursing Disposition Last Done: 12/05/23 21:48
ED- Neurological Assessment Last Done: 12/05/23 15:30
ED Swallowing Screen Last Done: 12/05/23 15:30
Discharge Date and Time
Discharge Date/Time: 12/05/23 21:48
[2023-12-05 15:50] LABS: Urine Albumin Trace (Neg - Trace); Urine Bilirubin Negative (Negative); Urine Character Very Cloudy (Clear); Urine Color Yellow; Urine Glucose Negative (Negative); Urine Ketone Negative (Negative); Urine Leukocyte 2+ (Negative); Urine Nitrite Negative (Negative); Urine Occult Blood 1+ (Negative); Urine Specific Gravity 1.025 (<1.030); Urine Urobilinogen Negative (Neg - 1+)
[2023-12-05 15:53] LABS: % Basophils 0.5 % (0-2); % Eosinophils 0.3 % (0-6); % Immature Granulocytes 0.3 % (0-0.5); % Lymphocytes 8.2 % (20.5-51.1); % Monocytes 6.3 % (1.7-9.3); % Neutrophils 84.4 % (42.2-75.2); Absolute Lymphocytes 0.6 10^3/uL (1.2-3.4); Absolute Monocytes 0.5 10^3/uL (0.1-0.6); Absolute Neutrophils 6.5 10^3/uL (1.4-6.5); Hematocrit 38.5 % (39.0-52.0); Hemoglobin 13.5 g/dL (13.0-18.0); Mean Corp Hgb Conc. 35.1 g/dL (33.0-37.0); Mean Corpuscular Hgb 32.8 pg (27.0-31.0); Mean Corpuscular Volume 93.7 fL (80.0-94.0); Mean Platelet Volume 9.8 fL (7.4-10.4); Nucleated Red Blood Cells % 0 % (-); Platelet Count 180 10^3/uL (130-400); Red Blood Cell Count 4.11 10^6/uL (4.70-6.10); Red Cell Dist. Width 12.5 % (11.5-14.5); White Blood Cell Count 7.7 10^3/uL (4.8-10.8)
[2023-12-05 15:58] LABS: Urine Red Blood Cell 0-2 /HPF (0-2); Urine White Cell 70-80 /HPF (0-5)
[2023-12-05 16:00] VITALS: BP 150/66
[2023-12-05 16:06] LABS: ALT (SGPT) 26 U/L (0-50); AST (SGOT) 28 U/L (17-59); Albumin 4.1 g/dl (3.5-5.0); Alkaline Phosphatase 98 U/L (38-126); Blood Urea Nitrogen 16 mg/dl (9-20); Calcium 9.3 mg/dl (8.4-10.2); Carbon Dioxide 28 mmol/L (22-30); Chloride 101 mmol/L (98-107); Glucose 147 mg/dl (70-99); Potassium 4.2 mmol/L (3.5-5.1); Sodium 138 mmol/L (135-145); Total Bilirubin 0.8 mg/dl (0.2-1.3); Total Protein 6.6 g/dl (6.3-8.2); eGFR > 60.00
[2023-12-05] MEDS: MAXIPIME 2000 MG IV (17:26)
--- NOTE | 2023-12-05 20:01 | HPS.HSE ---
Family Physician
-
Family Physician: Jessika Benson MD
Chief Complaint
-
Confusion
History of Present Illness
Patient is an 83y M with PMH significant for ASCVD, hypertension and RA who presents to ED for evaluation of confusion. History obtained from the patient - who does not recall much of events leading to his hospitalization - and from his who
is present at the bedside. states that patient seemed to be in his usual good state of health yesterday. This AM, he complained of some nausea and stated that he had poor appetite. He did not eat breakfast as he usually does. His
informed him what she was going to make for dinner - one of his favorite dishes apparently - and he did not seem to recognize the name of the dish. Later in the day, patient decided to make some eggs and entered the kitchen to find him frying
eggs on a plate sitting on the stovetop. He had only a few bites of the eggs and then lost his appetite / felt nauseated.
brought him to the ED for further evaluation.
states that today's symptoms are very similar to those that he experienced last month. She states that he was diagnosed with a UTI at that time and treated with abx.
Medical History
Past Medical History
Past Medical History: Reports Other
Additional Past Medical History:
Rheumatoid arthritis
Essential hypertension
Hyperlipidemia
Aortic stenosis
DVT -off anticoagulation since September 2020.
CAD
Gout
Paroxysmal atrial fibrillation -only noted in the perioperative state without recurrence
Chronic heart failure preserved EF
Spinal stenosis
Lyme disease
Past Surgical History: Reports Other
Additional Past Surgical History:
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
Bioprosthetic AVR February 2016
Orthopedic surgery
Bilateral cataract
Social History
Tobacco: Smoker (cigars daily)
Alcohol: Daily (2 beers daily +/- 2 glasses of wine.)
Drug: None
Personal:
Living: With Family
Family History
Family History: Not pertinent
Allergies / Home Medications
Allergies reflects when Allergies were last updated in [employer].
Home Medications with original date entered in [employer]
Allergy/Medication List:
Allergies
Allergy/AdvReac Type Severity Reaction Status Date / Time
morphine Allergy Nausea / Verified 12/05/23 14:39
Vomiting
Enviornmental Allergy Sneezing, Uncoded 12/05/23 14:39
runny
nose, eyes
watery
Home Medications
allopurinol 300 mg tablet 300 mg PO DAILY Gout 02/16/16
calcium carbonate (Calcium 600) 600 mg PO DAILY Supplement 01/04/23
cholecalciferol (vitamin D3) 50 mcg (2,000 unit) capsule (Vitamin D3) 50 mcg PO DAILY Supplement 01/04/23
finasteride 5 mg tablet 5 mg PO HS Urinary Issue 01/04/23
hydroxychloroquine 200 mg tablet (Plaquenil) 400 mg PO DAILY rheumatoid arthritis 01/04/23
irbesartan 300 mg tablet (Avapro) 300 mg PO DAILY Blood Pressure 01/04/23
metoprolol succinate 50 mg tablet,extended release 24 hr (Toprol XL) 75 mg PO DAILY blood pressure/A fib 01/04/23
sulfasalazine 500 mg tablet 1,000 mg PO BID rheumatoid arthritis 01/04/23
tamsulosin 0.4 mg capsule (Flomax) 0.4 mg PO HS Urinary Issue 01/04/23
apixaban 5 mg tablet (Eliquis) 5 mg PO BID 30 days #60 tabs 11/04/23 - NEW
atorvastatin 20 mg tablet 20 mg PO HS 12/05/23
cetirizine 10 mg tablet (Zyrtec) 10 mg PO DAILYPRN PRN allergies 12/05/23
famotidine 20 mg tablet (Pepcid) 20 mg PO DAILYPRN PRN gerd 12/05/23
tizanidine 2 mg tablet 2 mg PO BIDPRN PRN muscle spasms 12/05/23 - Does not take.
Review of Systems
-
History Source: Patient and Family
A 12 point ROS was completed and negative except as noted: Yes
Constitutional: Reports Fatigue; Denies Fever or Chills
EENT: Denies Sore Throat
Respiratory: Denies Cough or Trouble Breathing
Cardiac: Denies Chest Pain or Palpitations
Abdomen/GI: Reports Nausea; Denies Abdominal Pain, Vomiting, Diarrhea, Constipated, Bloody Stools or Black Stools
: Reports Incontinence (Nocturnal leaking.); Denies Dysuria, Frequency, Flank Pain or Bleeding
Musculoskeletal: Reports Edema; Denies Joint Pain
Neurological: Denies Dizzy, Headache, Weakness or Numbness
Psych: Reports Dementia
Physical Exam
Vital Signs
Vital Signs
Temp Pulse Resp BP Pulse Ox
98.0 F 91 16 150/66 96
12/05/23 14:37 12/05/23 14:37 12/05/23 14:37 12/05/23 16:00 12/05/23 16:45
Physical Exam
General: Other (83y M in no acute distress. At baseline at present per .)
HEENT: Moist mucous membranes and PERRLA
Respiratory: Clear; No Wheezes, Rales or Rhonchi
Cardiac: S1/S2 and Regular Rhythm; No Murmur
GI: Soft, Non Tender, Non Distended and Normal Bowel Sounds
Musculoskeletal: No Clubbing, No Cyanosis and Other (1-2+ pitting edema b/l LEs.)
Neuro: AO x 3 and Nonfocal/grossly intact
Laboratory Results
-
12/05/23 15:31
12/05/23 15:31
Laboratory Results
Total Bilirubin 0.8 mg/dl (0.2-1.3) 12/05/23 15:31
AST 28 U/L (17-59) 12/05/23 15:31
ALT 26 U/L (0-50) 12/05/23 15:31
Alkaline Phosphatase 98 U/L (38-126) 12/05/23 15:31
Impression/Plan
-
A/P: Patient is an 83y M with PMH significant for ASCVD, hypertension and RA who presents to ED for evaluation of confusion.
Acute TME on Chronic Vascular Dementia
- Observe overnight for further evaluation and treatment.
- Suspect that his current degree of confusion represents natural progression of underlying dementia.
- Rule out any acute exacerbating issues.
- No urinary symptoms, fever, leukocytosis, etc. UA with WBC, but no bacteria seen and negative nitrites. Culture from last visit was contamination - not evident infection.
- Will continue ceftriaxone for now pending repeat culture data - but doubt UTI is responsible for his presentation.
- Check COVID status.
- Follow for any new / worsening symptoms.
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
ASCVD
- No chest pain, palpitations, etc.
- Continue current CV med regimen.
- Plavix changed to Eliquis after last visit after discussions with Cardio and Neuro.
- No focal findings or symptoms to suggest new acute stroke.
Benign Hypertension
- Stable. Continue outpatient med regimen with holding parameters.
BPH
- Stable. Continue tamsulosin / finasteride.
Rheumatoid Arthritis
Gout
- Stable. No complaints of joint pains at present.
- Continue outpatient medications without changes.
Alcohol Use Disorder
- Patient drinks two beers daily as well as 1 (or 2) glasses of wine.
- As noted above, this is certainly contributing to his cognitive issues and should encourage decreased EtOH intake / cessation.
- Follow MSAS protocol during stay and treat any symptoms of withdrawal as needed.
- Thiamine, folate, MVI replacement, etc.
DVT Prophylaxis: On Eliquis
Code Status: Full
[2023-12-05 20:40] LABS: COVID-19 Antigen Negative (Negative)
--- NOTE | 2023-12-05 21:50 | PTCARENOTE ---
Patient arrived from the ED via stretcher. Patient ambulated into the room with assistance. Patient arrived with single point cane from home. AAOx2. Not oriented to time. No complaints of pain. VSS. Patient oriented to the room. Call chandler within
reach.
[2023-12-05 22:00] VITALS: BP 108/75; BP 145/72; BP 146/80; PULSE 76; PULSE 78; PULSE 84
[2023-12-05 22:01] VITALS: BP 138/84
[2023-12-05 22:16] VITALS: BMI 33.1
[2023-12-05] MEDS: AZULFIDINE 1000 MG PO (22:18)
[2023-12-05] MEDS: LIPITOR 20 MG PO (22:18)
[2023-12-05] MEDS: PROSCAR 5 MG PO (22:18)
[2023-12-05] MEDS: FLOMAX 0.4 MG PO (22:18)
[2023-12-05] MEDS: ELIQUIS 5 MG PO (22:18)
[2023-12-05 22:28] VITALS: BMI 33.1
[2023-12-05] MEDS: STERILE WATER FOR INJECTION 10 ML IV (23:06)
[2023-12-05] MEDS: ROCEPHIN 1000 MG IV (23:06)
[2023-12-05 23:40] VITALS: BP 126/71
[2023-12-06 00:29] VITALS: BP 126/71
[2023-12-06 03:24] VITALS: BP 154/75
[2023-12-06 06:00] VITALS: BMI 32.2
[2023-12-06 07:13] LABS: Hematocrit 39.3 % (39.0-52.0); Hemoglobin 13.5 g/dL (13.0-18.0); Mean Corp Hgb Conc. 34.4 g/dL (33.0-37.0); Mean Corpuscular Hgb 33.3 pg (27.0-31.0); Mean Platelet Volume 10.1 fL (7.4-10.4); Platelet Count 162 10^3/uL (130-400); Red Blood Cell Count 4.05 10^6/uL (4.70-6.10); Red Cell Dist. Width 12.5 % (11.5-14.5); White Blood Cell Count 8.2 10^3/uL (4.8-10.8)
[2023-12-06 07:20] VITALS: BP 129/66
[2023-12-06] MEDS: ZYLOPRIM 300 MG PO (07:39)
[2023-12-06] MEDS: AVAPRO 300 MG PO (07:39)
[2023-12-06] MEDS: THIAMINE INJECTION 200 MG IV (07:39)
[2023-12-06] MEDS: TOPROL XL 75 MG PO (07:40)
[2023-12-06] MEDS: AZULFIDINE 1000 MG PO (07:40)
[2023-12-06] MEDS: PLAQUENIL 400 MG PO (07:40)
[2023-12-06] MEDS: FOLVITE 1 MG PO (07:41)
[2023-12-06] MEDS: ELIQUIS 5 MG PO (07:41)
[2023-12-06 07:46] LABS: Blood Urea Nitrogen 14 mg/dl (9-20); Calcium 9.3 mg/dl (8.4-10.2); Carbon Dioxide 28 mmol/L (22-30); Chloride 102 mmol/L (98-107); Estimated Creatinine Clearance 74 ml/min; Glucose 107 mg/dl (70-99); Sodium 139 mmol/L (135-145); eGFR > 60.00
[2023-12-06 08:12] VITALS: BP 129/66; BP 149/71; PULSE 66; PULSE 73
[2023-12-06 10:14] VITALS: BP 154/62; PULSE 69; O2SAT 97
--- NOTE | 2023-12-06 10:24 | W.PN.HOSP.TC ---
Today's Communication/Plan
-
Ambulate
Bladder scan
Discharge
Assessment / Plan
Assessment / Plan
Gen-AAOx3, NAD
HEENT-NC, AT, anicteric, clear oral mm
Neck-supple
CV-reg, no M, +S1/S2
Lungs-clear B/L
Abd-soft, NT, ND
Ext-no edema
Musculoskeletal-no cyanosis, clubbing
Skin-warm and dry
Neuro-grossly non-focal
Psych-calm, cooperative
Acute TME -differential diagnosis includes UTI versus cognitive impairment with progression versus other. Currently mental status back to baseline.
Asymptomatic pyuria -rule out UTI. Culture pending. Currently on empiric ceftriaxone. If this truly represents urinary tract infection then will need further urologic workup. Encouraged patient to follow-up with urologist after discharge. Does
have BPH. Check bladder scan today.
CAD -stable.
Essential hypertension -stable.
Rheumatoid arthritis -stable.
Gout
Alcohol use disorder -encouraged to cut back.
Chronic right lower extremity DVT -noted on ultrasound in October. Continue Eliquis.
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
amyloid angiopathy. Moderate periventricular white matter leukoaraiosis. Moderate diffuse cerebral and cerebellar volume loss. All of these findings are concerning for underlying vascular dementia given presentation with confusion and prior
episodes of confusion. Findings discussed with patient and .
Full code
Dispo -patient and requesting discharge today. I asked nursing to ambulate him to assess safety. Check bladder scan prior to discharge. Will need to discharge on empiric antibiotics pending urine culture results. Close follow-up with PCP
and urology.
35 minutes spent in discharge process.
Anticipated Discharge: Today
Subjective/Interval History
-
Date of Service: December 06, 2023
Patient seen and examined. Feels much better. Requesting discharge. at the bedside. No complaints.
Objective Data
-
Labs:
Laboratory Results
12/06/23
06:12
WBC 8.2
Hgb 13.5
Hct 39.3
Plt Count 162
Sodium 139
Potassium 4.0
Chloride 102
Carbon Dioxide 28
BUN 14
Creatinine 0.9
Glucose 107 H
Calcium 9.3
Vital Signs:
Vital Signs
Temp Pulse Resp BP Pulse Ox
98.3 F 65 18 129/66 97
12/06/23 07:20 12/06/23 07:39 12/06/23 07:20 12/06/23 07:39 12/06/23 07:20
I&O
12/05/23 12/06/23 12/07/23
06:59 06:59 06:59
Intake Total 480 / 480
Balance 480 / 480
Review of Systems
-
History Source: Patient
All other systems: Reviewed and negative
--- NOTE | 2023-12-06 10:38 | W.DS.TRANS ---
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
-
Discharge Instructions:
Sleep Apnea Risk Intermediate
Discharge Diagnosis/Procedures Transient confusion, possible UTI
Diet Regular
Activity As tolerated
Driving Restrictions As prior to admission
Bathing Restrictions None
Instructions:
Stand-Alone Forms:
Changes to Home Medications: No
Discharge Medications:
DC Medications w/original date entered in [employer]
allopurinol 300 mg tablet 300 mg PO DAILY Gout 02/16/16
calcium carbonate (Calcium 600) 600 mg PO DAILY Supplement 01/04/23
cholecalciferol (vitamin D3) 50 mcg (2,000 unit) capsule (Vitamin D3) 50 mcg PO DAILY Supplement 01/04/23
finasteride 5 mg tablet 5 mg PO HS Urinary Issue 01/04/23
hydroxychloroquine 200 mg tablet (Plaquenil) 400 mg PO DAILY rheumatoid arthritis 01/04/23
irbesartan 300 mg tablet (Avapro) 300 mg PO DAILY Blood Pressure 01/04/23
metoprolol succinate 50 mg tablet,extended release 24 hr (Toprol XL) 75 mg PO DAILY blood pressure/A fib 01/04/23
sulfasalazine 500 mg tablet 1,000 mg PO BID rheumatoid arthritis 01/04/23
tamsulosin 0.4 mg capsule (Flomax) 0.4 mg PO HS Urinary Issue 01/04/23
apixaban 5 mg tablet (Eliquis) 5 mg PO BID 30 days #60 tabs 11/04/23
atorvastatin 20 mg tablet 20 mg PO HS 12/05/23
cetirizine 10 mg tablet (Zyrtec) 10 mg PO DAILYPRN PRN allergies 12/05/23
famotidine 20 mg tablet (Pepcid) 20 mg PO DAILYPRN PRN gerd 12/05/23
tizanidine 2 mg tablet 2 mg PO BIDPRN PRN muscle spasms 12/05/23
cefdinir 300 mg capsule 300 mg PO BID #10 caps 12/06/23
folic acid 1 mg tablet 1 mg PO DAILY #30 tabs 12/06/23
thiamine HCl (vitamin B1) 100 mg tablet 100 mg PO BID #20 tabs 12/06/23
Home Medication Changes
Pending Results: No
[2023-12-06 11:16] VITALS: BP 149/71
--- NOTE | 2023-12-06 15:23 | CM ---
Patient with Dx TME, pyuria/possible UTI. PT recommends HH.
Met with patient and ;
the patient resides with his in a 2nd floor condo apartment with 6 outside stairs, 7 inside stairs. .
The patient has been independent in ADLs and ambulation using SPC.
DME - SPC, RW
VN - prior VN out of area
SNF - none
PCP - Jessika Benson
Pharmacy - [facility] Danita Hong
Offered VN for nurse and PT; would like patient to have and chooses VN.
Referral to [facility] Liaison.
ADHIKARI Letter completed.
CM Consult: Substance Abuse
Offered patient resources for Etoh; patient declined saying he has no problem with his Etoh intake, and he drinks 2 beers & 1 glass wine but not every day.
will transport home today.
Plan home today with VN.
== END 2023-12-06 11:45 | disposition home health service (06) ==
LOC: 4 EAST ACU 20:13
PROVIDERS: Emergency Medicine; ADMITTING PHYSICIAN Hospitalist; ATTENDING PHYSICIAN Hospitalist; EMERGENCY PHYSICIAN Emergency Medicine; FAMILY PHYSICIAN Family Medicine
DX: G92.8 Other toxic encephalopathy (principal); R82.81 Pyuria; R11.0 Nausea; F10.10 Alcohol abuse, uncomplicated; I25.10 Atherosclerotic heart disease of native coronary artery without angina pectoris; F17.290 Nicotine dependence, other tobacco product, uncomplicated; I11.0 Hypertensive heart disease with heart failure; I82.501 Chronic embolism and thrombosis of unspecified deep veins of right lower extremity; M06.9 Rheumatoid arthritis, unspecified; E78.5 Hyperlipidemia, unspecified; N40.0 Benign prostatic hyperplasia without lower urinary tract symptoms; R41.89 Other symptoms and signs involving cognitive functions and awareness; I35.0 Nonrheumatic aortic (valve) stenosis; M10.9 Gout, unspecified; I48.0 Paroxysmal atrial fibrillation; I50.32 Chronic diastolic (congestive) heart failure; Z95.1 Presence of aortocoronary bypass graft; Z88.5 Allergy status to narcotic agent; Z95.3 Presence of xenogenic heart valve; Z79.01 Long term (current) use of anticoagulants; Z86.73 Personal history of transient ischemic attack (TIA), and cerebral infarction without residual deficits; Z11.52 Encounter for screening for COVID-19
CPT/HCPCS: 70450; 80048; 80053; 81003; 81015; 85025; 85027; 87086; 87147; 87186; 87811; 96374; 97162; 99284; 99406; G0378

== ENCOUNTER → 2024-02-12 09:27 | Outpatient (REF) | payer OTHER, SELFPAY | LOC: RAD 09:27 | PROVIDERS: ATTENDING PHYSICIAN Physical Medicine & Rehabilitation; FAMILY PHYSICIAN Family Medicine | DX: M54.2 Cervicalgia (principal) | CPT/HCPCS: 72050 ==

== ENCOUNTER → 2024-03-16 07:16 | Outpatient (REF) | payer OTHER, SELFPAY ==
[2024-03-16 08:51] LABS: ALT (SGPT) 27 U/L (0-50); AST (SGOT) 28 U/L (17-59); Alkaline Phosphatase 109 U/L (38-126); Blood Urea Nitrogen 18 mg/dl (9-20); Calcium 9.1 mg/dl (8.4-10.2); Carbon Dioxide 29 mmol/L (22-30); Chloride 104 mmol/L (98-107); Glucose 117 mg/dl (70-99); HDL Cholesterol 73 mg/dl; LDL Cholesterol, Calculated 58 mg/dl; Potassium 4.7 mmol/L (3.5-5.1); Sodium 141 mmol/L (135-145); Total Bilirubin 0.7 mg/dl (0.2-1.3); Total Cholesterol 145 mg/dl (50-199); Total Protein 6.4 g/dl (6.3-8.2); Triglyceride 72 mg/dl (10-149); Uric Acid 4.6 mg/dl (3.5-8.5); Very Low Density Lipoprotein 14 mg/dl (0-30); eGFR > 60.00
[2024-03-16 08:57] LABS: % Basophils 0.9 % (0-2); % Eosinophils 3.4 % (0-6); % Immature Granulocytes 0.3 % (0-0.5); % Lymphocytes 16.8 % (20.5-51.1); % Monocytes 11.7 % (1.7-9.3); % Neutrophils 66.9 % (42.2-75.2); Absolute Basophils 0.1 10^3/uL (0-0.2); Absolute Eosinophils 0.2 10^3/uL (0-0.7); Absolute Monocytes 0.7 10^3/uL (0.1-0.6); Absolute Neutrophils 3.9 10^3/uL (1.4-6.5); Hematocrit 42.1 % (39.0-52.0); Mean Corp Hgb Conc. 33.3 g/dL (33.0-37.0); Mean Corpuscular Hgb 33.1 pg (27.0-31.0); Mean Corpuscular Volume 99.5 fL (80.0-94.0); Mean Platelet Volume 10.4 fL (7.4-10.4); Nucleated Red Blood Cells % 0 % (-); Platelet Count 197 10^3/uL (130-400); Red Blood Cell Count 4.23 10^6/uL (4.70-6.10); Red Cell Dist. Width 13.1 % (11.5-14.5); White Blood Cell Count 5.8 10^3/uL (4.8-10.8)
[2024-03-16 09:04] LABS: C-Reactive Protein < 5.00 mg/L (0.0-10.00)
[2024-03-16 09:05] LABS: Erythrocyte Sed Rate 11 mm/hour (0-20)
[2024-03-16 09:21] LABS: Vitamin D, 25-OH*** 49.1 ng/mL (30-80)
[2024-03-16 09:35] LABS: TSH 1.83 uIU/ml (0.47-4.68)
[2024-03-16 10:04] LABS: Glycohemoglobin (HgbA1c) 4.7 % (4.0-5.6)
== END ==
LOC: REG 07:16
PROVIDERS: ATTENDING PHYSICIAN Family Medicine; FAMILY PHYSICIAN Internal Medicine Cardiovascular Disease
DX: I10 Essential (primary) hypertension (principal); E78.5 Hyperlipidemia, unspecified; E55.9 Vitamin D deficiency, unspecified; M06.00 Rheumatoid arthritis without rheumatoid factor, unspecified site; Z13.0 Encounter for screening for diseases of the blood and blood-forming organs and certain disorders involving the immune mechanism; R73.01 Impaired fasting glucose; Z87.39 Personal history of other diseases of the musculoskeletal system and connective tissue; Z13.29 Encounter for screening for other suspected endocrine disorder
CPT/HCPCS: 36415; 80053; 80061; 82306; 83036; 84443; 84550; 85025; 85652; 86140

== ENCOUNTER 2024-08-03 13:08 | Inpatient (IN) | payer OTHER, SELFPAY ==
[2024-08-03] VITALS (10 sets, daily range): BP systolic 101–161; BP diastolic 60–109; BMI 32.9
--- NOTE | 2024-08-03 10:06 | ED.CVA ---
History of Present Illness
<Power Bell PA-C - Last Filed: 08/03/24 12:23>
General
Chief Complaint: CVA/TIA Symptoms
Source: patient
Time Seen by Provider: 08/03/24 09:57
Onset of Stroke Symptoms
Onset of symptoms known: No
Time pt last seen normal is known: No
History of Present Illness
History of Present Illness:
84-year-old male on Eliquis with history of TIA CHF A-fib presents via EMS from home. Report from EMS was that his noted him to be confused this morning. There is a 5 or 10-minute period of time where the patient was unable to answer any of
her questions. Patient himself denies any complaints. He denies headache chest pain or shortness of breath. He is not sure why he is here in the hospital. No recent fever.
Past History
<Power Bell PA-C - Last Filed: 08/03/24 12:23>
Past History
ED Past Medical History: CAD and Other (Aortic valve replacement, gout)
ED Past Surgical History: Cardiac
Social History
Tobacco: Smoker
Alcohol: Daily
Drug: None
Personal:
Living: with family
Phy Exam
<TOMÁS Alcala Last Filed: 08/03/24 12:23>
Physical Exam
Physical Exam:
General: Well-appearing male no acute respiratory distress
HEENT: Normocephalic atraumatic
Heart: Regular rate and rhythm
Lungs: Clear no wheeze
Neurologic exam: Alert and oriented x 3 no facial asymmetry no drift on exam no dysarthria or aphasia. No evidence of confusion here no unilateral weakness
Extremities: No cyanosis or edema
Course
<TOMÁS Alcala Last Filed: 08/03/24 12:23>
Orders/Labs/Results
Orders:
Orders
08/03/24
MR Brain Without Contrast Routine
Comment:
Reason For Exam: aphasia
OK for patient to be off Cardiac Monitoring for MRI: No
Recent pill cam endoscopy?: No
08/03/24 10:08
Electrocardiogram (*1) Urgent
Reason for Study: TIA/Stroke
EKG- Treatment ONCE
08/03/24 10:17
Alcohol Urgent
Complete Blood Count/With Diff Urgent
Comprehensive Metabolic Panel Urgent
Vitamin B12 Urgent
Comment: ADD ON
08/03/24 10:29
Lorazepam [Ativan] 2 mg .ROUTE .STK-MED ONE
08/03/24 10:32
CT HEAD STROKE ALERT W/o Cont Urgent
Comment:
Reason For Exam: seizure vs CVA, change in mental
08/03/24 10:33
Lorazepam [Ativan] 1 mg IV NOW STA
08/03/24 10:35
Lorazepam [Ativan] 2 mg IV NOW STA
08/03/24 10:39
Lorazepam [Ativan] 2 mg .ROUTE .STK-MED ONE
08/03/24 11:16
Add On- LAB Urgent
Tests Added?: b12, thiamine
08/03/24 11:20
Thiamine Injection 200 mg IV NOW STA
08/03/24 11:25
diazePAM [Valium Injection] 5 mg IV NOW STA
08/03/24 11:27
EEG Routine Routine
Reason for Exam: abnormal movements
Magnesium Routine
Prolactin Routine
TSH Reflex To Free T4 Routine
Total CK [Creatine Phosphokinase] Routine
08/03/24 11:45
Haloperidol Lactate [Haldol] 2 mg IV NOW STA
Restraints - Non Violent As Directed
Justification-Patient:: 2-Protective Intervention
Restraint Type-: Soft Limb-R Wrist/4 rails
Apply From (date): 08/03/24
Apply from (time): 11:45
Remove (date): 08/04/24
Remove (time): 23:59
08/03/24 11:50
EKG- Treatment ONCE
08/03/24 12:47
Admit/Transfer Patient As Directed
Co-Sign Provider:
Level of Care: Inpatient admission
Assign to:: IMU- Intermediate Care
Physician / Group: idris
Diagnosis: seizure vs tia
Reason for Hospitalization: seizure vs tia
Expected length of stay greater than two midnights?: Yes
ELOS- Estimated Length of Stay in days: 2
I certify the patient meets the requirements for IP care: Yes
Code Status As Directed
Resuscitation Status: Full Code
PRN Pain Medication Management As Directed
May give lesser potent ordered pain med per pt: Yes
preference::
Protocol:: Medication orders for pain may be administered in a
manner that supports deferring to patient preference
when the pt is:
- Requesting an ordered lesser potent pain medication.
Least to most potent pain medications are defined
as: acetaminophen < NSAID < tramadol < opioids
(morphine, oxycodone, hydromorphone).
- Requesting a lesser dose of the same medication IF
ORDERED.
- Requesting a less intrusive route of administration
if both routes are prescribed by the provider (PO <
IV).
08/03/24 13:07
PRN Pain Medication Management As Directed
May give lesser potent ordered pain med per pt: Yes
preference::
Protocol:: Medication orders for pain may be administered in a
manner that supports deferring to patient preference
when the pt is:
- Requesting an ordered lesser potent pain medication.
Least to most potent pain medications are defined
as: acetaminophen < NSAID < tramadol < opioids
(morphine, oxycodone, hydromorphone).
- Requesting a lesser dose of the same medication IF
ORDERED.
- Requesting a less intrusive route of administration
if both routes are prescribed by the provider (PO <
IV).
08/03/24 14:30
Vitamin B1, Whole Blood [S] Routine
08/04/24 11:50
Electrocardiogram (*1) Urgent
Reason for Study: Vertigo / Dizzy
08/06/24 11:00
DC Protocol for Telemetry ONCE
Abnormal Lab Results
08/03/24 08/03/24
10:17 10:27
RBC 3.89 L 10^6/uL
(4.70-6.10)
Hct 37.7 L %
(39.0-52.0)
MCV 96.9 H fL
(80.0-94.0)
MCH 33.9 H pg
(27.0-31.0)
Absolute Lymphs (auto) 0.6 L 10^3/uL
(1.2-3.4)
Neutrophils % 84.7 H %
(42.2-75.2)
Lymphocytes % 7.6 L %
(20.5-51.1)
Glucose 151 H mg/dl
(70-99)
Total Protein 6.1 L g/dl
(6.3-8.2)
Vitamin B12 237 L pg/ml
(239-931)
POC Glucose 133 H mg/dl
(70-99)
08/03/24 10:17
08/03/24 10:17
Vital Signs
Initial and Last Documented VS:
Initial Vital Signs
Temp Resp
98.5 F 18
08/03/24 09:59 08/03/24 09:59
Last Documented Vital Signs
Temp Pulse Resp BP Pulse Ox
98.5 F 88 21 133/67 93
08/03/24 09:59 08/03/24 15:45 08/03/24 14:30 08/03/24 15:00 08/03/24 15:30
<Estela Henriquez, DO - Last Filed: 08/03/24 16:22>
Orders/Labs/Results
Orders:
Orders
08/03/24
MR Brain Without Contrast Routine
Comment:
Reason For Exam: aphasia
OK for patient to be off Cardiac Monitoring for MRI: No
Recent pill cam endoscopy?: No
08/03/24 10:08
Electrocardiogram (*1) Urgent
Reason for Study: TIA/Stroke
EKG- Treatment ONCE
08/03/24 10:17
Alcohol Urgent
Complete Blood Count/With Diff Urgent
Comprehensive Metabolic Panel Urgent
Vitamin B12 Urgent
Comment: ADD ON
08/03/24 10:29
Lorazepam [Ativan] 2 mg .ROUTE .STK-MED ONE
08/03/24 10:32
CT HEAD STROKE ALERT W/o Cont Urgent
Comment:
Reason For Exam: seizure vs CVA, change in mental
08/03/24 10:33
Lorazepam [Ativan] 1 mg IV NOW STA
08/03/24 10:35
Lorazepam [Ativan] 2 mg IV NOW STA
08/03/24 10:39
Lorazepam [Ativan] 2 mg .ROUTE .STK-MED ONE
08/03/24 11:16
Add On- LAB Urgent
Tests Added?: b12, thiamine
08/03/24 11:20
Thiamine Injection 200 mg IV NOW STA
08/03/24 11:25
diazePAM [Valium Injection] 5 mg IV NOW STA
08/03/24 11:27
EEG Routine Routine
Reason for Exam: abnormal movements
Magnesium Routine
Prolactin Routine
TSH Reflex To Free T4 Routine
Total CK [Creatine Phosphokinase] Routine
08/03/24 11:45
Haloperidol Lactate [Haldol] 2 mg IV NOW STA
Restraints - Non Violent As Directed
Justification-Patient:: 2-Protective Intervention
Restraint Type-: Soft Limb-R Wrist/4 rails
Apply From (date): 08/03/24
Apply from (time): 11:45
Remove (date): 08/04/24
Remove (time): 23:59
08/03/24 11:50
EKG- Treatment ONCE
08/03/24 12:47
Admit/Transfer Patient As Directed
Co-Sign Provider:
Level of Care: Inpatient admission
Assign to:: IMU- Intermediate Care
Physician / Group: idris
Diagnosis: seizure vs tia
Reason for Hospitalization: seizure vs tia
Expected length of stay greater than two midnights?: Yes
ELOS- Estimated Length of Stay in days: 2
I certify the patient meets the requirements for IP care: Yes
Code Status As Directed
Resuscitation Status: Full Code
PRN Pain Medication Management As Directed
May give lesser potent ordered pain med per pt: Yes
preference::
Protocol:: Medication orders for pain may be administered in a
manner that supports deferring to patient preference
when the pt is:
- Requesting an ordered lesser potent pain medication.
Least to most potent pain medications are defined
as: acetaminophen < NSAID < tramadol < opioids
(morphine, oxycodone, hydromorphone).
- Requesting a lesser dose of the same medication IF
ORDERED.
- Requesting a less intrusive route of administration
if both routes are prescribed by the provider (PO <
IV).
08/03/24 13:07
PRN Pain Medication Management As Directed
May give lesser potent ordered pain med per pt: Yes
preference::
Protocol:: Medication orders for pain may be administered in a
manner that supports deferring to patient preference
when the pt is:
- Requesting an ordered lesser potent pain medication.
Least to most potent pain medications are defined
as: acetaminophen < NSAID < tramadol < opioids
(morphine, oxycodone, hydromorphone).
- Requesting a lesser dose of the same medication IF
ORDERED.
- Requesting a less intrusive route of administration
if both routes are prescribed by the provider (PO <
IV).
08/03/24 14:30
Vitamin B1, Whole Blood [S] Routine
08/04/24 11:50
Electrocardiogram (*1) Urgent
Reason for Study: Vertigo / Dizzy
08/06/24 11:00
DC Protocol for Telemetry ONCE
Abnormal Lab Results
08/03/24 08/03/24
10:17 10:27
RBC 3.89 L 10^6/uL
(4.70-6.10)
Hct 37.7 L %
(39.0-52.0)
MCV 96.9 H fL
(80.0-94.0)
MCH 33.9 H pg
(27.0-31.0)
Absolute Lymphs (auto) 0.6 L 10^3/uL
(1.2-3.4)
Neutrophils % 84.7 H %
(42.2-75.2)
Lymphocytes % 7.6 L %
(20.5-51.1)
Glucose 151 H mg/dl
(70-99)
Total Protein 6.1 L g/dl
(6.3-8.2)
Vitamin B12 237 L pg/ml
(239-931)
POC Glucose 133 H mg/dl
(70-99)
08/03/24 10:17
08/03/24 10:17
Vital Signs
Initial and Last Documented VS:
Initial Vital Signs
Temp Resp
98.5 F 18
08/03/24 09:59 08/03/24 09:59
Last Documented Vital Signs
Temp Pulse Resp BP Pulse Ox
98.5 F 88 21 133/67 93
08/03/24 09:59 08/03/24 15:45 08/03/24 14:30 08/03/24 15:00 08/03/24 15:30
<Power Bell PA-C - Last Filed: 08/03/24 12:23>
MDM/Problems Addressed
Differential Diagnosis Includes:
Patient with alleged episode of confusion. The family member is not here. He is not confused for me and has a normal neurologic exam. Given his anticoagulated state history of TIAs will check labs EKG and CAT scan of head
<Power Bell PA-C - Last Filed: 08/03/24 12:23>
*Critical Care Note
Total Time (30-74mins, 75-104mins- exclusive of procedures): Not Applicable
<Estela Henriquez DO - Last Filed: 08/03/24 16:22>
*Critical Care Note
Total Time (30-74mins, 75-104mins- exclusive of procedures): 45
comment:
The high probability of a clinically significant, sudden or life threatening deterioration of the neurologic system(s) required my full and direct attention, intervention and personal management. The aggregate critical care time was 45 minutes. This
time is in addition to time spent performing reported procedures but includes the following:
[x] Data Review and interpretation
[x] Patient assessment and monitoring of vital signs
[x] Documentation
[x] Medication orders and management
<Power Bell PA-C - Last Filed: 08/03/24 12:23>
Update Note
Update Note:
Called back into the room by the nurse. Upon entry into the room the patient is rhythmically moving his arms and legs and body blinking his eyes repetitively but not responding. He will make eye contact with me when I talk but he was not able to
say any words. This continued for 5 or 10 minutes. At this point a stroke alert was called the emergency room attending was involved and neurology was in the room. After multiple rounds of medicine last 1 including 2 mg of IV Haldol, patient has
calm down. He required soft restraints. CT of head was negative. Discussed with neurology. They ordered EEG. Patient will require admission to hospital for his encephalopathy.
ED Attending Note
<Power Bell PA-C - Last Filed: 08/03/24 12:23>
-
Portions of this chart may have been created with voice recognition software.� Occasional wrong word or��sound alike� substitutions may have occurred due to the inherent limitations of voice recognition software.
<Estela Henriquez DO - Last Filed: 08/03/24 16:22>
ED Attending Note
Patient seen and examined by attending physician: Yes
I performed the substantive portion of visit, reviewed & personally made and approve the management plan that is documented in note by myself or ANA LUISA.: Yes
I performed a history and physical exam of patient and discussed management with resident, I reviewed resident's note and agree with documented findings and plan of care.: Yes
ED Attending Note:
84-year-old male with history of TIA, hypertension, anticoagulation with Eliquis presenting to the emergency department for change in mental status. Patient brought in from home. Per around 12-21, patient gotten out of the shower, was
altered, eyes rolling in the back of his head. By the time medics arrived, patient however was following commands. On arrival, initially evaluated by ANA LUISA, awake, alert, oriented, no acute complaints, no focal neurologic deficits. Known history of
TIA in the past. Vital signs on arrival are significant for hypertension.
Initial exam, patient is awake, alert, oriented. He is following commands appropriately. No reported focal neurologic deficits. However, shortly after arrival, called to bedside, acute change in behavior. On my assessment, patient with diffuse
rhythmic movements of his body, awake, however not responding to commands. Pupils equal and reactive. Appears consistent with possible seizure disorder. Given acute change in behavior, symptoms starting about an hour prior to arrival, stroke
alert subsequently called with neurology at bedside. Plan for CT and CTA imaging. Plan for Ativan to control patient's movements in the setting of potential seizure. Patient also with known history of alcohol use disorder. Will plan for alcohol
level. Not a TNK candidate given anticoagulation status
11:15 -CT head negative. In discussion with neuro, plan for admission, EEG. Alcohol level is negative. Given alcohol history, Warnicke's is a consideration. Will send B12 and thiamine level. Will administer thiamine.
Discharge Plan
Departure
Patient Disposition: Admit
Date of Disposition: 08/03/24
Time of Disposition: :
Presentation/result/management discussed w/ accepting MD/DO: Hospitalist
Discharge Problem:
Encephalopathy
Interventions
Interventions:
*Risk Screen - Suicide Last Done: 08/03/24 10:04
*General Assessment Last Done: 08/03/24 10:04
*Neglect/Abuse Screening Last Done: 08/03/24 10:04
*ED- Fall Risk Assessment Last Done: 08/03/24 10:10
*ED COVID-19 Vaccine History Last Done: 08/03/24 10:10
ED- Pulmonary Assessment Last Done: 08/03/24 10:14
ED- Neurological Assessment Last Done: 08/03/24 10:14
ED- Cardiac Assessment Last Done: 08/03/24 10:14
ED Swallowing Screen Last Done: 08/03/24 12:21
[2024-08-03 10:28] LABS: Glucose - Point of Care 133 mg/dl (70-99)
[2024-08-03] MEDS: ATIVAN 1 MG IV (10:33)
[2024-08-03 10:34] LABS: % Basophils 0.8 % (0-2); % Eosinophils 0.1 % (0-6); % Immature Granulocytes 0.3 % (0-0.5); % Lymphocytes 7.6 % (20.5-51.1); % Monocytes 6.5 % (1.7-9.3); % Neutrophils 84.7 % (42.2-75.2); Absolute Basophils 0.1 10^3/uL (0-0.2); Absolute Lymphocytes 0.6 10^3/uL (1.2-3.4); Absolute Monocytes 0.5 10^3/uL (0.1-0.6); Absolute Neutrophils 6.4 10^3/uL (1.4-6.5); Hematocrit 37.7 % (39.0-52.0); Hemoglobin 13.2 g/dL (13.0-18.0); Mean Corpuscular Hgb 33.9 pg (27.0-31.0); Mean Corpuscular Volume 96.9 fL (80.0-94.0); Mean Platelet Volume 9.9 fL (7.4-10.4); Nucleated Red Blood Cells % 0 % (-); Platelet Count 199 10^3/uL (130-400); Red Blood Cell Count 3.89 10^6/uL (4.70-6.10); Red Cell Dist. Width 12.6 % (11.5-14.5); White Blood Cell Count 7.5 10^3/uL (4.8-10.8)
--- NOTE | 2024-08-03 10:44 | CON.NEURO ---
Consultation
Order
Date of Consultation: 08/03/24
Requesting Provider: Power Bell PA-C
Reason for Consult: Stroke alert
Called in: 10:25 AM
Neurology Consultation Note.
HPI: This is an 84-year-old man who presented to [facility] on05/2024 with a spell. According to patient's , Mr. Byers had diarrhea in the morning and took a shower. After the shower, he sat in a lounge chair and appeared pale.
His noticed he was rolling his eyes upward, and she became concerned he might lose consciousness. When she spoke to him about their plans to go to the library, he could not comprehend her words and was unable to speak coherently. He made sounds
but couldn't form words. This episode lasted about 5 minutes before resolving.
Upon arrival at the hospital, he initially presented with a normal neurologic exam, good strength, and was alert and talking. He developed an acute change in mental status with associated abnormal movements while in ER.
The reports that Buck has experienced similar episodes of confusion in the past, which prompted a neurology consultation about a year and a half ago due to concerns about early-onset dementia. TIAs. She describes these episodes as 'bouts' where
he becomes confused, doesn't understand what she's saying, or asks strange questions. However, this morning's episode was notable for his inability to speak, which was a new symptom.
Regarding lifestyle, Buck smokes one cigar daily and consumes 1-2 beers in the afternoon, a glass of wine with or after dinner, and occasionally some guevara. His manages his medications.
Mr. Byers was seen by neurology service in 2022 for expressive aphasia.
ER VS: 140/63, 94, 32, 36.9, 95 on room air
EKG:
PDMP:none
Labs: Glucose�151, normal sodium,, creatinine, WBCs. EtOH�negative
CT head wo contrast-mild atrophy.
PMH: MILANA Roca, RLE DVT in 2020, RA, MCI, CAD, HTN, DLP, HFpEF, gout, vitamin D deficiency, BPH, EtOH use disorder
PSH:CABG, bioprosthetic AVR, bilateral cataract surgery, L TKA, R ECTOR, b/l carpal tunnel release, lumbar rhizotomy, basal cell carcinoma removal, R RTC repair,
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
FH: Not contributory to current presentation
All: Morphine
ROS: Unable due to encephalopathy
General: Well developed. In no acute distress.
Cardio: Regular rate
Neuro:
Mental Status: Alert, attends intermittently. Does not follow requests. No verbal output
Cranial Nerves: Orthophoric primary gaze. Pupils are equally round, surgical. Horizontal extraocular movement intact. No facial weakness.
Motor: Drifts both arms symmetrically to bed plane
Reflexes: Limited exam.
Sensory: Unable to assess
Coordination: Nonrhythmic, fluctuating symmetric synchronous upper and lower extremity movements, intermittent facial grimacing
Gait: deferred
Assessment and Plan:
I. TIA vs focal seizure. Not a candidate for IV TNK due to active systemic anticoagulation.
II. 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
III. Chronic encephalopathy.
IV. PA A-Fib
-Continue Telemetry monitoring
-Avoid cerebral hypoperfusion
-Hold Eliquis. Continue aspirin 81 mg once a day
-Brain MRI without ki
-Please check vitamin B12, TSH, CK, prolactin, urine tox
-IV thiamine
-Routine EEG
-Ativan 2 mg if abnormal movements are ongoing
- Will follow
I personally reviewed all radiology and labs along with past medical records pertinent to current medical problems. Total time spent in patient care is 60 minutes.
Thank you for allowing us to participate in the care of this patient. We will continue to follow. Please do not hesitate to contact us with any questions or concerns.
Subjective/Objective
Subjective Data
Date of Service: August 03, 2024
Objective Data
Vital Signs
Temp Pulse Resp BP Pulse Ox
36.9 C 94 32 140/63 95
08/03/24 09:59 08/03/24 10:30 08/03/24 10:30 08/03/24 10:19 08/03/24 10:30
Lab Results
08/03/24 10:17
Patient Allergies
morphine Allergy (Verified 12/05/23 14:39)
Nausea / Vomiting
Enviornmental Allergy (Uncoded 12/05/23 14:39)
Sneezing, runny nose, eyes watery
Medications
-
Home Medications
�Medication �Instructions �Recorded
allopurinol 300 mg tablet 300 mg PO DAILY Gout 02/16/16
calcium carbonate (Calcium 600) 600 mg PO DAILY Supplement 01/04/23
cholecalciferol (vitamin D3) 50 50 mcg PO DAILY Supplement 01/04/23
mcg (2,000 unit) capsule (Vitamin
D3)
finasteride 5 mg tablet 5 mg PO HS Urinary Issue 01/04/23
hydroxychloroquine 200 mg tablet 400 mg PO DAILY rheumatoid 01/04/23
(Plaquenil) arthritis
irbesartan 300 mg tablet (Avapro) 300 mg PO DAILY Blood Pressure 01/04/23
metoprolol succinate 50 mg 75 mg PO DAILY blood pressure/A fib 01/04/23
tablet,extended release 24 hr
(Toprol XL)
sulfasalazine 500 mg tablet 1,000 mg PO BID rheumatoid 01/04/23
arthritis
tamsulosin 0.4 mg capsule (Flomax) 0.4 mg PO HS Urinary Issue 01/04/23
apixaban 5 mg tablet (Eliquis) 5 mg PO BID 30 days #60 tabs 11/04/23
atorvastatin 20 mg tablet 20 mg PO HS High Cholesterol 12/05/23
cetirizine 10 mg tablet (Zyrtec) 10 mg PO DAILYPRN PRN allergies 12/05/23
famotidine 20 mg tablet (Pepcid) 20 mg PO DAILYPRN PRN gerd 12/05/23
tizanidine 2 mg tablet 2 mg PO BIDPRN PRN muscle spasms 12/05/23
cefdinir 300 mg capsule 300 mg PO BID #10 caps 12/06/23
folic acid 1 mg tablet 1 mg PO DAILY #30 tabs 12/06/23
thiamine HCl (vitamin B1) 100 mg 100 mg PO BID #20 tabs 12/06/23
tablet
Vital Signs and Labs
-
Vital Signs and Labs:
Vital Signs
Temp Pulse Resp BP Pulse Ox
36.9 C 94 32 140/63 95
08/03/24 09:59 08/03/24 10:30 08/03/24 10:30 08/03/24 10:19 08/03/24 10:30
Lab Results
08/03/24 10:17
Home Medications
-
Home Medications
allopurinol 300 mg tablet 300 mg PO DAILY Gout 02/16/16
calcium carbonate (Calcium 600) 600 mg PO DAILY Supplement 01/04/23
cholecalciferol (vitamin D3) 50 mcg (2,000 unit) capsule (Vitamin D3) 50 mcg PO DAILY Supplement 01/04/23
finasteride 5 mg tablet 5 mg PO HS Urinary Issue 01/04/23
hydroxychloroquine 200 mg tablet (Plaquenil) 400 mg PO DAILY rheumatoid arthritis 01/04/23
irbesartan 300 mg tablet (Avapro) 300 mg PO DAILY Blood Pressure 01/04/23
metoprolol succinate 50 mg tablet,extended release 24 hr (Toprol XL) 75 mg PO DAILY blood pressure/A fib 01/04/23
sulfasalazine 500 mg tablet 1,000 mg PO BID rheumatoid arthritis 01/04/23
tamsulosin 0.4 mg capsule (Flomax) 0.4 mg PO HS Urinary Issue 01/04/23
apixaban 5 mg tablet (Eliquis) 5 mg PO BID 30 days #60 tabs 11/04/23
atorvastatin 20 mg tablet 20 mg PO HS High Cholesterol 12/05/23
cetirizine 10 mg tablet (Zyrtec) 10 mg PO DAILYPRN PRN allergies 12/05/23
famotidine 20 mg tablet (Pepcid) 20 mg PO DAILYPRN PRN gerd 12/05/23
tizanidine 2 mg tablet 2 mg PO BIDPRN PRN muscle spasms 12/05/23
cefdinir 300 mg capsule 300 mg PO BID #10 caps 12/06/23
folic acid 1 mg tablet 1 mg PO DAILY #30 tabs 12/06/23
thiamine HCl (vitamin B1) 100 mg tablet 100 mg PO BID #20 tabs 12/06/23
--- NOTE | 2024-08-03 10:45 | EDRN ---
Patient arrived from home via EMS. Patient is unsure why his had to call the ambulance. Patient is AAO x3 on arrival. Denies headache,dizziness,numbness/tingling,weakness and speech difficulty. THOMPSON x4 equally. Pupils are equal and reactive.
1015: Patient stated that his stomach was upset and needed something in case he vomited.
[2024-08-03] MEDS: ATIVAN 2 MG IV (10:47)
[2024-08-03 10:48] LABS: ALT (SGPT) 29 U/L (0-50); AST (SGOT) 30 U/L (17-59); Albumin 3.7 g/dl (3.5-5.0); Alkaline Phosphatase 104 U/L (38-126); Blood Urea Nitrogen 20 mg/dl (9-20); Calcium 9.2 mg/dl (8.4-10.2); Carbon Dioxide 25 mmol/L (22-30); Chloride 105 mmol/L (98-107); Glucose 151 mg/dl (70-99); Potassium 4.2 mmol/L (3.5-5.1); Sodium 138 mmol/L (135-145); Total Protein 6.1 g/dl (6.3-8.2); eGFR > 60.00
[2024-08-03 10:49] LABS: Alcohol None Detected
[2024-08-03] MEDS: VALIUM INJECTION 5 MG IV (11:28)
[2024-08-03] MEDS: THIAMINE INJECTION 200 MG IV (11:29)
[2024-08-03] MEDS: HALDOL 2 MG IV (11:49)
--- NOTE | 2024-08-03 12:49 | HPS.HSE ---
Family Physician
-
Family Physician: Jessika Benson MD
Chief Complaint
-
altered mental status
History of Present Illness
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 As per patient's
patient had diarrhea in the morning and took a shower. After shower he sat in the lounge chair and appeared pale. notes he was rolling his eyes upward and she became concerned he might lose consciousness. He could not comprehend her words
and was unable to speak coherently. He made sounds but could not form words. This lasted 5 minutes before resolving.
Upon arrival to the hospital he initially presented normally. He developed acute change in mental status with associated abnormal movements while in ER.
He apparently has experienced similar episodes of confusion in the past which prompted neurology consultation a year and a half ago due to concerns of early onset dementia versus TIAs. He has bouts of becoming confused and not understanding what
she is saying or asking strange questions.
Patient does smoke cigar daily and consumes 1-2 beers in the afternoon.
was unavailable at time of my assessment so further history could not be obtained.
Medical History
Past Medical History
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
Past Surgical History: Reports None
Social History
Tobacco: Smoker
Alcohol: Daily
Drug: None
Family History
Family History: Not pertinent
Allergies / Home Medications
Allergies reflects when Allergies were last updated in [employer].
Home Medications with original date entered in [employer]
Allergy/Medication List:
Allergies
Allergy/AdvReac Type Severity Reaction Status Date / Time
morphine Allergy Nausea / Verified 12/05/23 14:39
Vomiting
Enviornmental Allergy Sneezing, Uncoded 12/05/23 14:39
runny
nose, eyes
watery
Home Medications
allopurinol 300 mg tablet 300 mg PO DAILY Gout 02/16/16
cholecalciferol (vitamin D3) 50 mcg (2,000 unit) capsule (Vitamin D3) 50 mcg PO DAILY Supplement 01/04/23
finasteride 5 mg tablet 5 mg PO HS Urinary Issue 01/04/23
hydroxychloroquine 200 mg tablet (Plaquenil) 400 mg PO DAILY rheumatoid arthritis 01/04/23
irbesartan 300 mg tablet (Avapro) 300 mg PO DAILY Blood Pressure 01/04/23
metoprolol succinate 50 mg tablet,extended release 24 hr (Toprol XL) 75 mg PO DAILY blood pressure/A fib 01/04/23
sulfasalazine 500 mg tablet 1,000 mg PO BID rheumatoid arthritis 01/04/23
tamsulosin 0.4 mg capsule (Flomax) 0.4 mg PO HS Urinary Issue 01/04/23
apixaban 5 mg tablet (Eliquis) 5 mg PO BID 30 days #60 tabs 11/04/23
atorvastatin 20 mg tablet 20 mg PO HS High Cholesterol 12/05/23
famotidine 20 mg tablet (Pepcid) 20 mg PO DAILYPRN PRN gerd 12/05/23
folic acid 1 mg tablet 1 mg PO DAILY #30 tabs 12/06/23
thiamine HCl (vitamin B1) 100 mg tablet 100 mg PO BID #20 tabs 12/06/23
Review of Systems
-
History Source: Patient
A 12 point ROS was completed and negative except as noted: Yes
Constitutional: Reports No Symptoms
EENT: Reports No Symptoms
Respiratory: Reports No Symptoms
Cardiac: Reports No Symptoms
Abdomen/GI: Reports No Symptoms
: Reports No Symptoms
Musculoskeletal: Reports No Symptoms
Skin: Reports No Symptoms
Neurological: Reports See HPI
Endocrine: Reports See HPI
Hematologic/Lymphatic: Reports No Symptoms
Psych: Reports No Symptoms
Physical Exam
Vital Signs
Vital Signs
Temp Pulse Resp BP Pulse Ox
98.5 F 99 19 122/88 95
08/03/24 09:59 08/03/24 12:15 08/03/24 11:06 08/03/24 12:00 08/03/24 10:30
Physical Exam
General: Well Developed, Well Nourished and No Apparent Distress
HEENT: NormoCephalic, Moist mucous membranes and Atraumatic
Respiratory: Clear
Cardiac: S1/S2 and Regular Rhythm; No Murmur or Rub
GI: Soft, Non Tender, Non Distended and Normal Bowel Sounds; No Organomegaly
Rectal: Deferred by Provider
Musculoskeletal: No Clubbing, No Cyanosis and No Edema
Skin: No Rash
Neuro: Nonfocal/grossly intact
Laboratory Results
-
08/03/24 10:17
08/03/24 10:17
Laboratory Results
Total Bilirubin 1.0 mg/dl (0.2-1.3) 08/03/24 10:17
AST 30 U/L (17-59) 08/03/24 10:17
ALT 29 U/L (0-50) 08/03/24 10:17
Alkaline Phosphatase 104 U/L (38-126) 08/03/24 10:17
Data Reviewed
-
Lab Data: Labs Reviewed by me
Old Records: Reviewed
Impression/Plan
-
IMPRESSION:
PLAN:
# Acute agitation concerning for focal seizure versus TIA vs cerebral amyloid angiopathy associated encephelopathy vs autoimmune encephalitis
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
-Patient was initially normal but later became agitated requiring Valium, Haldol, Ativan. Thought to be seizure however patient will respond
-Patient requiring restraints
-CT head shows no acute abnormality
- Hold Eliquis and continue aspirin
- MRI brain
-Check vitamin B12, TSH, CK, prolactin and UDS, ESR, CRP
- IV thiamine to be given
-EEG
-Patient got worse with Ativan so IV Haldol if agitation
-May possibly need LP
-neurology following
Left subclavian artery/brachiocephalic artery stenosis
Bilateral proximal internal carotid artery stenosis
Chronic left vertebral artery occlusion
Chronic posterior cerebral artery stenosis
- As seen on MRA head and neck from October 2023
History of CVAs
- Prior MRI showed small chronic infarcts in both cerebral hemispheres, small chronic intraparenchymal microhemorrhages in the left frontal lobe, left temporal lobe left cerebellum concerning for amyloid angiopathy
CAD
- Continue statin
Essential hypertension
- Continue irbesartan, metoprolol
Rheumatoid arthritis
- Continue hydroxychloroquine, sulfasalazine
Gout
- Continue allopurinol
Alcohol use disorder
- Drinks 1-2 beers a day
- Continue folic acid
Chronic right lower extremity DVT
-Last seen on imaging in October 2019 for
- Hold Eliquis
BPH
- Continue tamsulosin, finasteride
Full code
DVT prophylaxis�SCDs
Regular diet
[2024-08-03 15:02] LABS: Vitamin B12 237 pg/ml (239-931)
[2024-08-03 17:11] LABS: Creatine Phosphokinase 31 U/L (55-170); Magnesium 1.7 mg/dl (1.6-2.3)
[2024-08-03 17:13] LABS: C-Reactive Protein < 5.00 mg/L (0.0-10.00)
[2024-08-03 17:29] LABS: Prolactin 13.1 ng/ml (3.7-17.9)
--- NOTE | 2024-08-03 17:32 | PTCARENOTE ---
Rec'd pt from ED RN. Per ED RN,pt unable to cooperate for MRI, climbing out of the machine and was then incontinent of large amount of stool. Pt arrived to IMU, confused, agitated requiring frequent redirection to remain calm and speak appropriately
to staff. Pt making repeated demands. Able to calm down and responds to redirection. Pt voided 50ml of urine. Bladder scanned for 509ml. Notified Dr. Manzano. Straight cath ordererd. 2 RNs attempted to straight cath but unable to pass catheter. Pt
also has unusual anatomy. Spouse reports pt follows with Urology for urinary retention and enlarged prostate. RN notified Dr. Maria. Educated spouse on plan of care and fall risk.
[2024-08-03 17:43] LABS: TSH Reflex To Free T4 1.88 uIU/ml (0.47-4.68)
[2024-08-03 17:54] LABS: Erythrocyte Sed Rate 7 mm/hour (0-20)
[2024-08-03 18:14] LABS: INR 1.12; PT 14.7 Sec (11.4-14.6)
[2024-08-03 18:15] LABS: APTT 26.4 Sec (23.4-35.0)
[2024-08-03] MEDS: THIAMINE INJECTION 100 MG IV (18:32)
[2024-08-03] MEDS: TYLENOL 650 MG PO (18:32)
[2024-08-03 21:15] LABS: GGTP 44 U/L (15-73); Phosphorus 3.5 mg/dl (2.5-4.5)
[2024-08-03 21:21] LABS: B-Hydroxybutyrate 0.27 mmol/L (0.02-0.27)
--- NOTE | 2024-08-03 22:35 | PTCARENOTE ---
Pt received from dayshift RN. Pt attempted to exit bed independently, Pt stating he had to go to the bathroom, when assessed Pt had already been incontinent of stool in the bed. this RN and the PCT attempted to clean Pt up and Pt got very angry/
loud yelling at staff. Pt eventually calmed down and allowed staff to clean him. bed alarm is on. Pt is NSR on monitor. Assessment as documented. call light in reach.
--- NOTE | 2024-08-03 23:40 | PTCARENOTE ---
monitor alarming afib. attempted to capture rhythm change on ekg and pt converted back to nsr. ekg reading nsr with 1st degree av block.
[2024-08-04] VITALS (11 sets, daily range): BP systolic 116–168; BP diastolic 53–88; PULSE 83; O2SAT 94; BMI 32.9; BMI 33.0
--- NOTE | 2024-08-04 01:27 | W.PN.UPDATE ---
Update Note
Progress Note Update
RN addressed concern of patient with small amounts of urine 50 CC x2, bladder scan >500 CC. failed attempt to straight cath by 2 RN previously. made aware by RN. Dr Nicholas at the bedside, Consult placed.
--- NOTE | 2024-08-04 01:35 | PTCARENOTE ---
Pt voiding small amounts of urine at a time with scant visible blood in urine. thus far during this RNs shift Pt voided 160 ml of urine. order present for bladder scan prn if no void in 6 hours. due to small amounts of output. this RN bladder
scanned Pt post void of 50 ml, bladder remains with 522 ml. per previous RNs note, 2 dayshift RNs attempted to straight cath Pt without success. 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 Dr. Nicholas
then present to bedside and placed a indwelling foss catheter, initial output of 602 ml chuck urine. order present. intervention documented on worklist.
--- NOTE | 2024-08-04 01:36 | CON.MD ---
Consultation - Medical
-
see dictated note
minimal hx obtainable this evening
pt admitted with AMS
reports has a regular urologist- on dutasteride and flomax
now with retention- nurses unable to place foss
appears to have had dorsal slit- tried 20 f coude- some resis in bulbar urethra- able to pass 16 f coude without difficulty
700cc of clear urine drained
sent for ua and cx
continue meds and foss
[2024-08-04 02:14] LABS: Urine Albumin 2+ (Neg - Trace); Urine Bilirubin Negative (Negative); Urine Character Clear (Clear); Urine Color Yellow; Urine Glucose Negative (Negative); Urine Ketone Negative (Negative); Urine Leukocyte 3+ (Negative); Urine Nitrite Negative (Negative); Urine Occult Blood 4+ (Negative); Urine Specific Gravity 1.025 (<1.030); Urine Urobilinogen Negative (Neg - 1+)
[2024-08-04 03:29] LABS: Urine Squamous Cell 0-2 /LPF (Few); Urine White Cell 26-30 /HPF (0-5)
[2024-08-04 03:30] LABS: Urine Bacteria Moderate (Negative)
[2024-08-04 04:18] LABS: Amphetamines Negative (Negative); Barbiturates Negative (Negative); Benzodiazepines Positive (Negative); Buprenorphine Negative (Negative); Cocaine Negative (Negative); Marijuana Negative (Negative); Methadone Negative (Negative); Methamphetamines Negative (Negative); Opiates Negative (Negative); Phencyclidine Negative (Negative); Tricyclic Antidepressants Negative (Negative)
[2024-08-04 04:28] LABS: Fentanyl, Urine Negative (Negative)
[2024-08-04 05:34] LABS: % Eosinophils 2.5 % (0-6); % Immature Granulocytes 0.3 % (0-0.5); % Lymphocytes 17.9 % (20.5-51.1); % Monocytes 13.3 % (1.7-9.3); Absolute Basophils 0.1 10^3/uL (0-0.2); Absolute Eosinophils 0.2 10^3/uL (0-0.7); Absolute Lymphocytes 1.6 10^3/uL (1.2-3.4); Absolute Monocytes 1.2 10^3/uL (0.1-0.6); Absolute Neutrophils 5.6 10^3/uL (1.4-6.5); Hematocrit 36.4 % (39.0-52.0); Hemoglobin 12.8 g/dL (13.0-18.0); Mean Corp Hgb Conc. 35.2 g/dL (33.0-37.0); Mean Corpuscular Hgb 34.3 pg (27.0-31.0); Mean Corpuscular Volume 97.6 fL (80.0-94.0); Mean Platelet Volume 9.7 fL (7.4-10.4); Nucleated Red Blood Cells % 0 % (-); Platelet Count 175 10^3/uL (130-400); Red Blood Cell Count 3.73 10^6/uL (4.70-6.10); Red Cell Dist. Width 12.5 % (11.5-14.5); White Blood Cell Count 8.6 10^3/uL (4.8-10.8)
[2024-08-04 05:57] LABS: ALT (SGPT) 24 U/L (0-50); AST (SGOT) 24 U/L (17-59); Albumin 3.4 g/dl (3.5-5.0); Alkaline Phosphatase 92 U/L (38-126); Blood Urea Nitrogen 19 mg/dl (9-20); Calcium 8.8 mg/dl (8.4-10.2); Carbon Dioxide 26 mmol/L (22-30); Chloride 105 mmol/L (98-107); Estimated Creatinine Clearance 94 ml/min; Glucose 100 mg/dl (70-99); Potassium 3.9 mmol/L (3.5-5.1); Sodium 139 mmol/L (135-145); Total Bilirubin 0.9 mg/dl (0.2-1.3); Total Protein 5.4 g/dl (6.3-8.2); eGFR > 60.00
--- NOTE | 2024-08-04 07:18 | W.PN.NEURO.1 ---
Addendum entered and electronically signed by Anais Arriaga MD 08/04/24 12:50:
Start Keppra due to recurrent nature of patient's symptoms.
Plan for outpatient ambulatory EEG.
Original Note:
Today's Communication / Plan
-
.
Subjective/Objective
Subjective Data
Date of Service: August 04, 2024
Neurology follow-up note.
Mr. Byers reports no complaints. He is eager to go home.
He has been mostly normotensive and afebrile.
The patient has no recollection of the event or how he was transported to the hospital.
Routine EEG�mild background slowing and excessive beta activity. No electrographic correlates to abnormal movements.
Labs: Mg 1.7, normal CK, prolactin, CRP, vitamin B12�237, normal TSH.
PMH: PA A-Fib, RLE DVT in 2020, RA, MCI, CAD, HTN, DLP, HFpEF, gout, vitamin D deficiency, BPH, EtOH use disorder
PSH:CABG, bioprosthetic AVR, bilateral cataract surgery, L TKA, R ECTOR, b/l carpal tunnel release, lumbar rhizotomy, basal cell carcinoma removal, R RTC repair,
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
FH: Not contributory to current presentation
All: Morphine
ROS: Negative for headache, change in vision, strength, sensation
General: Well developed. In no acute distress.
Cardio: Regular rate
Neuro:
Mental Status: Alert oriented to month, day, date, year. Impaired attention and comprehension. Follows complex requests. No hemineglect. Labile mood.
Cranial Nerves: Pupils are 3 mm, reactive. Extraocular movement intact. Visual baldwin full to confrontation. No facial weakness, impaired hearing. No dysarthria.
Motor: No pronator or leg drift.
Reflexes: Trace throughout
Sensory: Absent vibration at the toes and reduced at the ankles
Coordination: No tremors myoclonic movement
Gait: deferred
Assessment and Plan:
I. Transient aphasia.
II. 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
III. Chronic encephalopathy.
IV. PA A-Fib
V. PNES
. 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
-Continue Telemetry monitoring
- Restart Eliquis if no acute infarcts on brain MRI
- Brain MRI without ki
- Continue thiamine and vitamin B12
- Psychiatry consult
- DVT prophylaxis.
- Case was discussed with patient's spouse
I personally reviewed all radiology and labs along with past medical records pertinent to current medical problems. Total time spent in patient care is 45 minutes.
Thank you for allowing us to participate in the care of this patient. We will continue to follow. Please do not hesitate to contact us with any questions or concerns.
Objective Data
Vital Signs
Temp Pulse Resp BP Pulse Ox
36.6 C 70 15 128/66 97
08/04/24 03:00 08/04/24 06:45 08/04/24 06:45 08/04/24 06:00 08/04/24 06:45
Lab Results
08/04/24 05:20
08/04/24 05:19
PT 14.7 Sec (11.4-14.6) H 08/03/24 17:58
INR 1.12 08/03/24 17:58
APTT 26.4 Sec (23.4-35.0) 08/03/24 17:58
Sodium 139 mmol/L (135-145) 08/04/24 05:19
Potassium 3.9 mmol/L (3.5-5.1) 08/04/24 05:19
BUN 19 mg/dl (9-20) 08/04/24 05:19
Glucose 100 mg/dl (70-99) H 08/04/24 05:19
Calcium 8.8 mg/dl (8.4-10.2) 08/04/24 05:19
Phosphorus Cancelled 08/03/24 19:02
Whole Bld Vitamin B1 Cancelled 08/03/24 13:41
Vitamin B12 237 pg/ml (239-931) L 08/03/24 10:17
Ur Buprenorphine Negative (Negative) 08/04/24 01:50
Patient Allergies
morphine Allergy (Verified 12/05/23 14:39)
Nausea / Vomiting
pollen extracts Allergy (Verified 08/03/24 17:29)
Sneezing, runny nose, eyes watery
Vital Signs and Labs
-
Vital Signs and Labs:
Vital Signs
Temp Pulse Resp BP Pulse Ox
36.6 C 70 15 128/66 97
08/04/24 03:00 08/04/24 06:45 08/04/24 06:45 08/04/24 06:00 08/04/24 06:45
Lab Results
08/04/24 05:20
08/04/24 05:19
PT 14.7 Sec (11.4-14.6) H 08/03/24 17:58
INR 1.12 08/03/24 17:58
APTT 26.4 Sec (23.4-35.0) 08/03/24 17:58
Sodium 139 mmol/L (135-145) 08/04/24 05:19
Potassium 3.9 mmol/L (3.5-5.1) 08/04/24 05:19
BUN 19 mg/dl (9-20) 08/04/24 05:19
Glucose 100 mg/dl (70-99) H 08/04/24 05:19
Calcium 8.8 mg/dl (8.4-10.2) 08/04/24 05:19
Phosphorus Cancelled 08/03/24 19:02
Whole Bld Vitamin B1 Cancelled 08/03/24 13:41
Vitamin B12 237 pg/ml (239-931) L 08/03/24 10:17
Ur Buprenorphine Negative (Negative) 08/04/24 01:50
Medications
-
Medications:
Generic Name Dose Route Start Last Admin
Trade Name Freq PRN Reason Stop Dose Admin
Acetaminophen 650 mg 08/03/24 18:16 08/03/24 18:32
Acetaminophen 325 Mg Tablet PO 08/31/24 18:15 650 mg
Q6HPRN PRN Administration
mild pain/ fever>100.5F
Folic Acid 1 mg 08/04/24 08:00
Folic Acid 1 Mg Tablet PO 09/01/24 07:59
DAILY ELIA
Folic Acid 1 mg/ Sodium 50.2 mls @ 200.8 mls/hr 08/03/24 17:27
Chloride IV 08/31/24 17:26
DAILYPRN PRN
if NPO
Lorazepam 1 mg 08/03/24 17:27
Lorazepam 1 Mg Tablet PO 08/31/24 17:26
Q2HPRN PRN
MSAS 5-7
Lorazepam 1 mg 08/03/24 17:27
Lorazepam 2 Mg/Ml Vial IV 08/31/24 17:26
Q1HPRN PRN
MSAS 8-11
Lorazepam 2 mg 08/03/24 17:27
Lorazepam 2 Mg/Ml Vial IV 08/31/24 17:26
Q1HPRN PRN
MSAS > 11
Sodium Chloride 0 flush 08/03/24 17:00
Sodium Chloride 0.9% (Flush) Syringe IV 08/31/24 16:59
PER PROTOCOL ELIA
Sodium Chloride 0 ml 08/03/24 17:27
Sodium Chloride 0.9% (Preservative Free) 10 Ml Vial IV 08/31/24 17:26
PRN PRN
To dilute IV Ativan
Protocol
Thiamine HCl 100 mg 08/03/24 18:00 08/03/24 18:32
Thiamine (100 Mg/Ml) 2 Ml Vial IV 08/31/24 17:59 100 mg
DAILY ELIA Administration
Home Medications
-
Home Medications
allopurinol 300 mg tablet 300 mg PO DAILY Gout 02/16/16
cholecalciferol (vitamin D3) 50 mcg (2,000 unit) capsule (Vitamin D3) 50 mcg PO DAILY Supplement 01/04/23
hydroxychloroquine 200 mg tablet (Plaquenil) 400 mg PO DAILY rheumatoid arthritis 01/04/23
irbesartan 300 mg tablet (Avapro) 300 mg PO DAILY Blood Pressure 01/04/23
metoprolol succinate 50 mg tablet,extended release 24 hr (Toprol XL) 75 mg PO DAILY blood pressure/A fib 01/04/23
sulfasalazine 500 mg tablet 500 mg PO BID rheumatoid arthritis 01/04/23
tamsulosin 0.4 mg capsule (Flomax) 0.4 mg PO HS Urinary Issue 01/04/23
apixaban 5 mg tablet (Eliquis) 5 mg PO BID 30 days #60 tabs 11/04/23
atorvastatin 20 mg tablet 20 mg PO HS High Cholesterol 12/05/23
acetaminophen 325 mg tablet (Tylenol) 650 mg PO Q4HPRN PRN mild pain 08/03/24
aspirin 81 mg tablet,delayed release 81 mg PO DAILY 08/03/24
calcium carbonate (Calcium 600) 600 mg PO DAILY 08/03/24
dutasteride 0.5 mg capsule 0.5 mg PO MOWEFR@0800 08/03/24
--- NOTE | 2024-08-04 07:21 | EEGC.RPT ---
Continuous EEG Report
Recording
Start Date of Data Reviewed: 08/03/24
End Date of Data Reviewed: 08/04/24
Done with Video Recording: Yes
Electrocardiogram: Unremarkable
Report
�TECHNICAL REMARKS:��This is a technically satisfactory eighteen channel record employing 21 disc electrodes applied according to a measured international 10-20 electrode placement system.��There were no significant technical difficulties.��The
study was done on a [email or web address] System.
�
CLINICAL INFORMATION: This is an 84-year-old man with encephalopathy.. �This study was requested to look for epileptiform activity.
STUDY DURATION:� 26 min,�22 secs
MEDICATIONS: As above
REPORT: �At the onset of the EEG, the patient is awake. The background activity consists of 9-10 Hz, persistent, posteriorly dominant, moderate amplitude, symmetric, and rhythmic activity. Anteriorly, it consists of a mixture of low voltage
indeterminate activity and 20-25 Hz, persistent, low amplitude, symmetric, and rhythmic activity. Intermittent generalized 1.5-2 Hz 15-20 microvolts activity lasting for 1-2 seconds with maximal amplitude in the bifrontal area is present. Stepwise
intermittent photic stimulation (1-31 Hz) does not induce any abnormalities. Hyperventilation is not performed. Drowsiness is characterized by low amplitude mixed frequency activity, roving eye movements, and decreased eye blinking and muscle
artifact. Excessive beta activity was present. No electrographic correlates to intermittent jerking movements and twitching are present.
IMPRESSION: �This is an abnormal awake and drowsy EEG due to a background slowing indicating the presence of a mild encephalopathy, but nonspecific in terms of etiology. There is no evidence of focal slowing or epileptiform activity.
[2024-08-04] MEDS: VITAMIN B-12 100 MCG PO (08:24)
[2024-08-04] MEDS: FOLVITE 1 MG PO (08:24)
[2024-08-04] MEDS: THIAMINE INJECTION 100 MG IV (08:24)
--- NOTE | 2024-08-04 08:37 | W.PN.URO.CBU ---
Today's Communication / Plan
-
continue foss
hold eliquis
follow up ucx
Assessment / Plan
-
BPH
urinary retention
difficult foss
? UTI
foss in place
continue flomax and proscar
f/u urine cx
would hold eliquis today- allow likely traumatic hematuria to clear
pt follows with outside urologist- dr watts
Diagnosis
-
Date of Service: August 04, 2024
-
Patient Diagnosis:
BPH
urinary retention
difficult foss
? UTI
Subjective
-
pt more awake and alert this am
foss in place- urine pink tinged
ua +- cx pending
Objective
-
Vital Signs
Temp Pulse Resp BP Pulse Ox
98.6 F 70 15 128/66 97
08/04/24 07:58 08/04/24 06:45 08/04/24 06:45 08/04/24 06:00 08/04/24 06:45
Intake and Output
08/03/24 08/04/24 08/05/24
06:59 06:59 06:59
Output Total 1112 / 1112
Balance -1112 / -1112
Output:
Urine, Foss 852 / 852
Urine, Voided 260 / 260
Laboratory Results
08/04/24 05:20
08/04/24 05:19
Review of Systems
-
Constitutional: Fatigue
Respiratory: No Symptoms
Cardiac: No Symptoms
Abdomen/GI: No Symptoms
Physical Exam
-
General - no acute distress
Abdomen - soft, non-tender
Genitalia - foss in place- urine pink
--- NOTE | 2024-08-04 12:40 | W.PN.HOSP.TC ---
Addendum entered and electronically signed by Jessica Zaragoza MD 08/04/24 16:03:
I saw and evaluated the patient independently. I reviewed the resident�s note and agree with findings and plan as documented by Dr. Almeida.
GENERAL: well developed, well nourished, male in no apparent distress
HEENT: NC/AT
HEART: regular rate and rhythm, +S1, +S2
LUNGS : clear to auscultation bilaterally
ABDOM: soft, nontender, nondistended, + bowel sounds
EXT: no cyanosis, clubbing, or edema
NEUROLOGIC: grossly intact
: foss with somewhat bloody urine
Acute agitation concerns for TIA, seizures, UTI, encephalopathy (unlikely hepatic encephalopathy)--has had similar episodes prior--most recent one was in April--Urine tox negative for alcohol level, positive for benzodiazepine but Ativan and
Valium were given in ED--EEG unrevealing for seizures, however we still cannot rule out seizures --await neuro--await brain MRI--Hold Eliquis for now, continue aspirin--consideration for LP
BPH with urinary incontinence--foss placed by urology (bloody urine likely traumatic from the catheter)--would keep at d/c and f/u with his primary urologist--await urine culture
History of CVA--Prior MRI in 2023 showed small chronic infarcts in both cerebellar hemispheres, small chronic intraparenchymal microhemorrhages in the left frontal, temporal, cerebellar concerning for amyloid angiopathy--Repeat brain MRI--Continue
aspirin
History of CAD--Continue aspirin and statin
Essential hypertension--Continue ARB and beta-vianey
Rheumatoid arthritis--Continue hydroxychloroquine, sulfasalazine
Gout--Continue allopurinol
Alcohol use disorder--Drinks 2 beers daily, plus told RN that drinks wine nightly and most days guevara along with 2 beers--agree with MSAS protocol--Continue thiamine and folic acid
History of right lower extremity DVT--Seen on imaging in October 2019--Hold Eliquis for now given traumatic hematuria
DVT proph
code status--Full code
Original Note:
Today's Communication/Plan
-
MRI of brain
Downgrade to telemetry
Await urine culture
Hold Eliquis
Assessment / Plan
Assessment / Plan
Impression
Acute agitation
BPH with urinary incontinence
History of CVA
History of CAD
Rheumatoid arthritis
Gout
Alcohol use disorder
History of right lower extremity DVT
Plan
Acute agitation concerns for TIA, seizures, UTI,encephalopathy, herpes encephalitis
History of previous similar episodes in the past
Urine tox negative for alcohol level, positive for benzodiazepine as Ativan and Valium were given in ED
Is alcohol level was not detected plus transaminase within normal, unlikely hepatic encephalopathy
EEG unrevealing for seizures, however we cannot rule out seizures EEG.
MRI of brain
Hold Eliquis for now, continue aspirin
May need LP? To rule out herpes encephalitis although negative nuchal rigidity
Neurology following
Downgrade to telemetry
BPH with urinary incontinence
on Foss catheter draining bloody urine likely traumatic from the catheter
Await urine culture
Urology following
May need to leave with the Foss catheter
Monitor hemoglobin
History of CVA
Prior MRI in 2023 showed small chronic infarcts in both cerebellar hemispheres, small chronic intraparenchymal microhemorrhages in the left frontal, temporal, cerebellar concerning for amyloid angiopathy.
Repeat brain MRI
Continue aspirin
History of CAD
Continue aspirin and statin
Essential hypertension
Continue ARB and beta-vianey
Rheumatoid arthritis
Continue hydroxychloroquine, sulfasalazine
Gout
Continue allopurinol
Alcohol use disorder
Drinks 2 beers daily
MSAS protocol
Continue thiamine and folic acid
History of right lower extremity DVT
Seen on imaging in October 2019
Hold Eliquis
Full code
DVT prophylaxis�SCDs
Regular diet
Anticipated Discharge: > 48 hours
Subjective/Interval History
-
Date of Service: August 04, 2024
No change in overnight however this morning the patient is back to his baseline. Patient has been having pleasant conversation with the nurse. He denies recollection of the event that happened yesterday. Overnight patient was retaining urine, the
nurse was unable to straight catheter, urology was consulted and Foss was put in.
Objective Data
-
Labs:
Laboratory Results
08/04/24 08/04/24
05:19 05:20
WBC 8.6
Hgb 12.8 L
Hct 36.4 L
Plt Count 175
Sodium 139
Potassium 3.9
Chloride 105
Carbon Dioxide 26
BUN 19
Creatinine 0.7
Glucose 100 H
Calcium 8.8
Total Bilirubin 0.9
AST 24
ALT 24
Alkaline Phosphatase 92
Vital Signs:
Vital Signs
Temp Pulse Resp BP Pulse Ox
98.2 F 70 15 128/66 97
08/04/24 11:34 08/04/24 06:45 08/04/24 06:45 08/04/24 06:00 08/04/24 06:45
I&O
08/03/24 08/04/24 08/05/24
06:59 06:59 06:59
Output Total 1112 / 1112
Balance -1112 / -1112
Review of Systems
-
All other systems: Reviewed and negative
Physical Exam
-
General: No Apparent Distress and Comfortable
HEENT: Normocephalic and Atraumatic
Respiratory: Decreased Breath Sounds (Mild bilaterally at the bases)
Cardiac: Regular Rhythm, S1/S2 and Murmur (Systolic ejection)
GI: Soft, Nontender and Nondistended
Genito-urinary: Foss (Bloody urine)
Musculoskeletal: Edema, Right Lower Extrem and Edema, Left Lower Extrem
Skin: Warm and Dry
Neuro: AO x 3
Psych: Calm; Negative Confused or Agitated
Data Reviewed
-
CT Scan: Report Reviewed by me and Discussed with Physician
Labs: Labs Reviewed by me and Discussed with Physician
[2024-08-04] MEDS: KEPPRA 500 MG IV ×2 (13:49→21:48)
[2024-08-04 14:44] LABS: Hematocrit 37.3 % (39.0-52.0); Hemoglobin 12.8 g/dL (13.0-18.0)
--- NOTE | 2024-08-04 15:08 | PTCARENOTE ---
Rec'd pt this AM. AAO x3. Pelayo catheter draining dark, red, bloody urine. Urology aware, minimal clots, no irrigation required. vital signs stable. OOB to chair x1 assist. Pt 'jokingly' but repeatedly asking for beer. MSAS 1-4 today. good appetite.
--- NOTE | 2024-08-04 15:31 | CM ---
Patient seen at bedside with physicians and patient present. Patient declined resources and information about alcohol and patient stated 'he is going to continue to drink, it will not stop'. Patient PCP Dr. Patton and he uses the [facility] [address] . Patient home is a apartment. Patient home is a ground floor. Patient has a walker, cane and nebulizer. Patient plan is for discharge home with VN vs home with no needs. CM will continue to follow for discharge planning needs.
Plan;home with no needs vs home with VN
[2024-08-04] MEDS: AVAPRO 300 MG PO (16:22)
[2024-08-04] MEDS: ASPIR LOW (ENTERIC COATED) 81 MG PO (16:24)
[2024-08-04] MEDS: TOPROL XL 75 MG PO (16:24)
--- NOTE | 2024-08-04 19:27 | PTCARENOTE ---
Pt recieved from IMU around 1730. Pt able to walk from stretcher to bed. No pain reported at this time. Pt oriented to room and staff. present at bedside. Pt cooperative. All needs met at this time.
[2024-08-04] MEDS: AZULFIDINE 500 MG PO (21:49)
[2024-08-04] MEDS: LIPITOR 20 MG PO (21:54)
[2024-08-04] MEDS: FLOMAX 0.4 MG PO (21:55)
[2024-08-05 03:59] VITALS: BP 121/60
--- NOTE | 2024-08-05 05:47 | DOWNTIME ---
There was a [employer] Downtime on 08/05/2024 from 0200 to 08/06/2023 at 0318 . Downtime documentation of patient's care, including medication administrations, has been reconciled in the electronic record per guidelines. Refer to the
patient's paper chart under the miscellaneous tab to see printed paper medication records and downtime forms.
[2024-08-05 06:00] VITALS: BMI 32.1
[2024-08-05 06:12] LABS: Hematocrit 37.5 % (39.0-52.0); Hemoglobin 12.9 g/dL (13.0-18.0); Mean Corp Hgb Conc. 34.4 g/dL (33.0-37.0); Mean Corpuscular Hgb 33.7 pg (27.0-31.0); Mean Corpuscular Volume 97.9 fL (80.0-94.0); Mean Platelet Volume 10.3 fL (7.4-10.4); Platelet Count 180 10^3/uL (130-400); Red Blood Cell Count 3.83 10^6/uL (4.70-6.10); Red Cell Dist. Width 12.6 % (11.5-14.5); White Blood Cell Count 10.2 10^3/uL (4.8-10.8)
[2024-08-05 06:35] LABS: Blood Urea Nitrogen 20 mg/dl (9-20); Calcium 8.7 mg/dl (8.4-10.2); Carbon Dioxide 27 mmol/L (22-30); Chloride 108 mmol/L (98-107); Estimated Creatinine Clearance 83 ml/min; Glucose 107 mg/dl (70-99); Magnesium 1.9 mg/dl (1.6-2.3); Potassium 3.7 mmol/L (3.5-5.1); Sodium 140 mmol/L (135-145); eGFR > 60.00
[2024-08-05 07:23] VITALS: BP 137/70
--- NOTE | 2024-08-05 08:15 | W.PN.NEURO.1 ---
Addendum entered and electronically signed by Anais Arriaga MD 08/05/24 13:44:
-Continue Keppra 500 mg BID
Original Note:
Today's Communication / Plan
-
.
Subjective/Objective
Subjective Data
Date of Service: August 05, 2024
Neurology follow-up note.
Mr. Byers reports no complaints. He is eager to go home. No reports of recurrent episodes of aphasia.
Brain MRI is pending
Mr. Byers reports no complaints. He is eager to go home.
He has been mostly normotensive and afebrile.
The patient has no recollection of the event or how he was transported to the hospital.
Routine EEG�mild background slowing and excessive beta activity. No electrographic correlates to abnormal movements.
Labs: Mg 1.7, normal CK, prolactin, CRP, vitamin B12�237, normal TSH.
PMH: PA A-Fib, RLE DVT in 2020, RA, MCI, CAD, HTN, DLP, HFpEF, gout, vitamin D deficiency, BPH, EtOH use disorder
PSH:CABG, bioprosthetic AVR, bilateral cataract surgery, L TKA, R ECTOR, b/l carpal tunnel release, lumbar rhizotomy, basal cell carcinoma removal, R RTC repair,
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
FH: Not contributory to current presentation
All: Morphine
ROS: Negative for headache, change in vision, strength, sensation
General: Well developed. In no acute distress.
Cardio: Regular rate
Neuro:
Mental Status: Alert oriented to month, day, date, year. Impaired attention and comprehension. Follows complex requests. No hemineglect. Labile mood.
Cranial Nerves: Pupils are 3 mm, reactive. Extraocular movement intact. Visual baldwin full to confrontation. No facial weakness, impaired hearing. No dysarthria.
Motor: No pronator or leg drift.
Reflexes: Trace throughout
Sensory: Absent vibration at the toes and reduced at the ankles
Coordination: No tremors myoclonic movement
Gait: deferred
Assessment and Plan:
I. Transient aphasia.
II. 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
III. Chronic encephalopathy.
IV. PA A-Fib
V. PNES
. 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
-Continue Telemetry monitoring
- Restart Eliquis if no acute infarcts on brain MRI. Please repeat CT head if MRI is not feasible.
-Please restart Eliquis if no acute infarcts on repeat neuroimaging.
- Continue thiamine and vitamin B12
- Psychiatry consult
- DVT prophylaxis.
- Outpatient neurology follow-up
I personally reviewed all radiology and labs along with past medical records pertinent to current medical problems. Total time spent in patient care is 35 minutes.
Thank you for allowing us to participate in the care of this patient. Please do not hesitate to contact us with any questions or concerns.
Objective Data
Vital Signs
Temp Pulse Resp BP Pulse Ox
36.6 C 80 18 137/70 95
08/05/24 07:23 08/05/24 07:23 08/05/24 07:23 08/05/24 07:23 08/05/24 07:23
Lab Results
08/05/24 05:05
08/05/24 05:05
PT 14.7 Sec (11.4-14.6) H 08/03/24 17:58
INR 1.12 08/03/24 17:58
APTT 26.4 Sec (23.4-35.0) 08/03/24 17:58
Sodium 140 mmol/L (135-145) 08/05/24 05:05
Potassium 3.7 mmol/L (3.5-5.1) 08/05/24 05:05
BUN 20 mg/dl (9-20) 08/05/24 05:05
Glucose 107 mg/dl (70-99) H 08/05/24 05:05
Calcium 8.7 mg/dl (8.4-10.2) 08/05/24 05:05
Phosphorus Cancelled 08/03/24 19:02
Whole Bld Vitamin B1 Cancelled 08/03/24 13:41
Vitamin B12 237 pg/ml (239-931) L 08/03/24 10:17
Ur Buprenorphine Negative (Negative) 08/04/24 01:50
Patient Allergies
morphine Allergy (Verified 12/05/23 14:39)
Nausea / Vomiting
pollen extracts Allergy (Verified 08/03/24 17:29)
Sneezing, runny nose, eyes watery
Vital Signs and Labs
-
Vital Signs and Labs:
Vital Signs
Temp Pulse Resp BP Pulse Ox
36.9 C 77 18 131/63 96
08/05/24 11:30 08/05/24 11:30 08/05/24 11:30 08/05/24 11:30 08/05/24 11:30
Lab Results
08/05/24 05:05
08/05/24 05:05
PT 14.7 Sec (11.4-14.6) H 08/03/24 17:58
INR 1.12 08/03/24 17:58
APTT 26.4 Sec (23.4-35.0) 08/03/24 17:58
Sodium 140 mmol/L (135-145) 08/05/24 05:05
Potassium 3.7 mmol/L (3.5-5.1) 08/05/24 05:05
BUN 20 mg/dl (9-20) 08/05/24 05:05
Glucose 107 mg/dl (70-99) H 08/05/24 05:05
Calcium 8.7 mg/dl (8.4-10.2) 08/05/24 05:05
Phosphorus Cancelled 08/03/24 19:02
Whole Bld Vitamin B1 Cancelled 08/03/24 13:41
Vitamin B12 237 pg/ml (239-931) L 08/03/24 10:17
Ur Buprenorphine Negative (Negative) 08/04/24 01:50
Medications
-
Medications:
Generic Name Dose Route Start Last Admin
Trade Name Freq PRN Reason Stop Dose Admin
Acetaminophen 650 mg 08/03/24 18:16 08/03/24 18:32
Acetaminophen 325 Mg Tablet PO 08/31/24 18:15 650 mg
Q6HPRN PRN Administration
mild pain/ fever>100.5F
Acetaminophen 650 mg 08/04/24 15:28
Acetaminophen 325 Mg Tablet PO 09/01/24 15:27
Q4HPRN PRN
mild pain
Allopurinol 300 mg 08/05/24 08:00 08/05/24 08:19
Allopurinol 300 Mg Tablet PO 09/02/24 07:59 300 mg
DAILY ELIA Administration
Aspirin 81 mg 08/04/24 16:00 08/05/24 08:22
Aspirin 81 Mg (Enteric Coated) Tablet PO 09/01/24 15:59 81 mg
DAILY ELIA Administration
Atorvastatin Calcium 20 mg 08/04/24 22:00 08/04/24 21:54
Atorvastatin (Lipitor) 20 Mg Tablet PO 09/01/24 21:59 20 mg
HS ELIA Administration
Calcium Carbonate 500 mg 08/05/24 08:00 08/05/24 08:20
Calcium Carbonate 500 Mg Tablet PO 09/02/24 07:59 500 mg
DAILY ELIA Administration
Cholecalciferol 50 mcg 08/05/24 08:00 08/05/24 08:23
Cholecalciferol (Vitamin D3) 50 Mcg Tablet (2,000 Units) PO 09/02/24 07:59 50 mcg
DAILY ELIA Administration
Cyanocobalamin 100 mcg 08/04/24 08:00 08/05/24 08:20
Cyanocobalamin (Vitamin B-12) 100 Mcg Tablet PO 09/01/24 07:59 100 mcg
DAILY ELIA Administration
Finasteride 5 mg 08/06/24 08:00
Finasteride 5 Mg Tablet PO 09/03/24 07:59
MOWEFR@0800 ELIA
Folic Acid 1 mg 08/04/24 08:00 08/05/24 08:19
Folic Acid 1 Mg Tablet PO 09/01/24 07:59 1 mg
DAILY ELIA Administration
Hydroxychloroquine Sulfate 400 mg 08/05/24 08:00 08/05/24 08:23
Hydroxychloroquine 200 Mg Tablet PO 09/02/24 07:59 400 mg
DAILY ELIA Administration
Folic Acid 1 mg/ Sodium 50.2 mls @ 200.8 mls/hr 08/03/24 17:27
Chloride IV 08/31/24 17:26
DAILYPRN PRN
if NPO
Irbesartan 300 mg 08/04/24 15:30 08/05/24 08:23
Irbesartan 300 Mg Tablet PO 09/01/24 15:29 300 mg
DAILY ELIA Administration
Levetiracetam 500 mg 08/04/24 13:00 08/05/24 08:16
Levetiracetam (100 Mg/Ml) 500 Mg/5 Ml Vial IV 09/01/24 12:59 500 mg
Q12 ELIA Administration
Lorazepam 1 mg 08/03/24 17:27
Lorazepam 1 Mg Tablet PO 08/31/24 17:26
Q2HPRN PRN
MSAS 5-7
Lorazepam 1 mg 08/03/24 17:27
Lorazepam 2 Mg/Ml Vial IV 08/31/24 17:26
Q1HPRN PRN
MSAS 8-11
Lorazepam 2 mg 08/03/24 17:27
Lorazepam 2 Mg/Ml Vial IV 08/31/24 17:26
Q1HPRN PRN
MSAS > 11
Metoprolol Succinate 75 mg 08/04/24 16:00 08/05/24 08:21
Metoprolol 50 Mg Extended Release Tablet PO 09/01/24 15:59 75 mg
DAILY ELIA Administration
Sodium Chloride 0 flush 08/03/24 17:00
Sodium Chloride 0.9% (Flush) Syringe IV 08/31/24 16:59
PER PROTOCOL ELIA
Sodium Chloride 0 ml 08/03/24 17:27
Sodium Chloride 0.9% (Preservative Free) 10 Ml Vial IV 08/31/24 17:26
PRN PRN
To dilute IV Ativan
Protocol
Sulfasalazine 500 mg 08/04/24 20:00 08/05/24 08:20
Sulfasalazine 500 Mg Tablet PO 08/14/24 19:59 500 mg
BID ELIA Administration
Tamsulosin HCl 0.4 mg 08/04/24 22:00 08/04/24 21:55
Tamsulosin 0.4 Mg Capsule PO 09/01/24 21:59 0.4 mg
HS ELIA Administration
Thiamine HCl 100 mg 08/03/24 18:00 08/05/24 08:17
Thiamine (100 Mg/Ml) 2 Ml Vial IV 08/31/24 17:59 100 mg
DAILY ELIA Administration
Home Medications
-
Home Medications
allopurinol 300 mg tablet 300 mg PO DAILY Gout 02/16/16
cholecalciferol (vitamin D3) 50 mcg (2,000 unit) capsule (Vitamin D3) 50 mcg PO DAILY Supplement 01/04/23
hydroxychloroquine 200 mg tablet (Plaquenil) 400 mg PO DAILY rheumatoid arthritis 01/04/23
irbesartan 300 mg tablet (Avapro) 300 mg PO DAILY Blood Pressure 01/04/23
metoprolol succinate 50 mg tablet,extended release 24 hr (Toprol XL) 75 mg PO DAILY blood pressure/A fib 01/04/23
sulfasalazine 500 mg tablet 500 mg PO BID rheumatoid arthritis 01/04/23
tamsulosin 0.4 mg capsule (Flomax) 0.4 mg PO HS Urinary Issue 01/04/23
atorvastatin 20 mg tablet 20 mg PO HS High Cholesterol 12/05/23
acetaminophen 325 mg tablet (Tylenol) 650 mg PO Q4HPRN PRN mild pain 08/03/24
aspirin 81 mg tablet,delayed release 81 mg PO DAILY Blood Clot Prevention/Tx 08/03/24
calcium carbonate (Calcium 600) 600 mg PO DAILY Supplement 08/03/24
dutasteride 0.5 mg capsule 0.5 mg PO MOWEFR@0800 Urinary Issue 08/03/24
apixaban 5 mg tablet (Eliquis) 5 mg PO BID Blood Clot Prevention/Tx 08/04/24
levetiracetam 500 mg tablet 500 mg PO BID possible seizures #60 tabs 08/05/24
[2024-08-05] MEDS: KEPPRA 500 MG IV (08:16)
[2024-08-05] MEDS: THIAMINE INJECTION 100 MG IV (08:17)
[2024-08-05] MEDS: FOLVITE 1 MG PO (08:19)
[2024-08-05] MEDS: ZYLOPRIM 300 MG PO (08:19)
[2024-08-05] MEDS: AZULFIDINE 500 MG PO (08:20)
[2024-08-05] MEDS: OSCAL CAL 500 500 MG PO (08:20)
[2024-08-05] MEDS: VITAMIN B-12 100 MCG PO (08:20)
[2024-08-05] MEDS: TOPROL XL 75 MG PO (08:21)
[2024-08-05] MEDS: ASPIR LOW (ENTERIC COATED) 81 MG PO (08:22)
[2024-08-05] MEDS: AVAPRO 300 MG PO (08:23)
[2024-08-05] MEDS: PLAQUENIL 400 MG PO (08:23)
[2024-08-05] MEDS: VITAMIN D3 (cholecalciferol) 50 MCG PO (08:23)
--- NOTE | 2024-08-05 08:30 | W.PN.URO.CBU ---
Today's Communication / Plan
-
continue foss
f/u urine culture
VN consult and foss home teaching
outpt f/u for voiding trial next week
Assessment / Plan
-
BPH
urinary retention
difficult foss
? UTI
foss in place
continue flomax and proscar
f/u urine cx
would hold eliquis for an additional 24hrs- allow likely traumatic hematuria to clear
if discharged today or tomorrow- would discharge with foss (VN consult and leg bag teaching order placed) and outpt f/u either with established urologist or may call my office
Diagnosis
-
Date of Service: August 05, 2024
-
Patient Diagnosis:
BPH
urinary retention
difficult foss
? UTI
Subjective
-
pt awake and alert
some blood at meatus/urine chuck
urine culture pending
Objective
-
Vital Signs
Temp Pulse Resp BP Pulse Ox
97.9 F 80 18 137/70 95
08/05/24 07:23 08/05/24 07:23 08/05/24 07:23 08/05/24 07:23 08/05/24 07:23
Intake and Output
08/04/24 08/05/24 08/06/24
06:59 06:59 06:59
Intake Total 720 / 720
Output Total 1112 / 1112 850 / 850 525 / 525
Balance -1112 / -1112 -130 / -130 -525 / -525
Intake:
Oral fluids 720 / 720
Output:
Urine, Foss 852 / 852 850 / 850 525 / 525
Urine, Voided 260 / 260
Laboratory Results
08/05/24 05:05
08/05/24 05:05
Review of Systems
-
Respiratory: No Symptoms
Cardiac: No Symptoms
Abdomen/GI: No Symptoms
: Other (foss)
Physical Exam
-
General - no acute distress
Abdomen - soft, non-tender
Genitalia - dorsal slit/foss in place
--- NOTE | 2024-08-05 10:51 | PN.CDI ---
CDI
- -
CDI:
Physician Documentation Request
Admit Date: 08/03/24 13:08
Dear Doctor Juan Pablo,
Please review the following and provide your response in the progress notes.
Clinical Indicators:
Nurses' Assessment, 08/03
Selected Entries
08/03/24
18:04
Pressure injury stage [Present on admission Bilateral Heel] Stage 1
Selected Entries
08/03/24
18:04
Pressure injury stage [Present on admission Buttock] DTI (Deep
Tissue Injury)
Physician documentation of the type and location of wounds is required for compliant documentation. Based on the above clinical findings and your assessment, please provide the following in your progress note:
Yes, Stage 1 Pressure injury bilateral heels and DTI buttock, POA
No, Stage 1 Pressure injury bilateral heels and DTI buttock
Other(please specify)
Location of the ulcer/wound, including laterality.
Type (etiology) of ulcer/wound:
- Arterial (ischemic) ulcer
- Venous stasis ulcer
- Pressure (decubitus) ulcer
- Other
- Unable to determine
For a pressure ulcer, please also include the stage* of the ulcer:
- Stage 1 - Skin intact, non-blanchable redness
- Stage 2 - Partial thickness loss of dermis, includes intact or open blister
- Stage 3 - Full thickness tissue not including bone, tendon or muscle
- Stage 4 - Full thickness tissue loss, including exposed bone, tendon or muscle
- Unstageable - Full thickness loss in which the base of the ulcer is covered by slough (yellow, garcia, zapien, green or brown) and/or eschar (garcia, brown or black) in the wound bed.
Use of terms such as suspected, likely, concern for, or probable (associated with a specific diagnosis that is being evaluated, monitored, or treated as if it exists) are acceptable and can be coded in the inpatient setting, when documented at the
time of discharge.
Thank you,
Jessica De Leon RN BSN CCDS
CDI Specialist
Please contact via tiger text
Please use your independent medical judgment in providing your response.
*Source: National Pressure Ulcer Advisory Panel (NPUAP)
--- NOTE | 2024-08-05 10:57 | PN.CDI ---
CDI
- -
CDI:
Physician Documentation Request
Admit Date: 08/03/24 13:08
Dear Doctor Juan Pablo,
Please review the following and provide your response in the progress notes.
Clinical Indicators:
PN, 08/04
#Alcohol use disorder--Drinks 2 beers daily, plus told RN that drinks wine nightly
#...and most days guevara along with 2 beers--
#...agree with MSAS protocol--Continue thiamine and folic acid
Selected Entries
08/03/24
16:57 08/03/24
18:06 08/03/24
22:06
MSAS SCORE 6 4 2
08/04/24
10:00
MSAS SCORE 3
Medications
Lorazepam (Lorazepam 2 Mg/Ml Vial) 2 mg IV NOW STA
Stop: 08/03/24 10:36
Last Admin: 08/03/24 10:47 Dose: 2 mg
Lorazepam (Lorazepam 2 Mg/Ml Vial) 1 mg IV NOW STA
Stop: 08/03/24 10:34
Last Admin: 08/03/24 10:33 Dose: 1 mg
Based on the above and your clinical assessment, please provide further specificity as outlined below:
Alcohol use disorder, with withdrawal, uncomplicated
Alcohol use disorder, only
Other (please specify)
Use of terms such as suspected, likely, concern for, or probable (associated with a specific diagnosis that is being evaluated, monitored, or treated as if it exists) are acceptable and can be coded in the inpatient setting, when documented at the
time of discharge.
Thank you,
Jessica De Leon RN BSN CCDS
CDI Specialist
Please contact via tiger text
Please use your independent medical judgment in providing your response.
--- NOTE | 2024-08-05 11:02 | W.PN.HOSP.TC ---
Addendum entered and electronically signed by Jessica Zaragoza MD 08/05/24 13:50:
pressure injury stage 1 bilateral heels, pressure injury buttock (deep tissue injury)---POA
pt without active withdrawal symptoms BUT did require ativan for MSAS scores
Addendum entered and electronically signed by Jessica Zaragoza MD 08/05/24 13:22:
I saw and evaluated the patient independently. I reviewed the resident�s note and agree with findings and plan as documented by Dr. Almeida.
GENERAL: well developed, well nourished, male in no apparent distress
HEENT: NC/AT
HEART: regular rate and rhythm, +S1, +S2
LUNGS : clear to auscultation bilaterally
ABDOM: soft, nontender, nondistended, + bowel sounds
EXT: no cyanosis, clubbing, or edema
NEUROLOGIC: grossly intact
: foss
Acute agitation --seizures leading diagnosis--apprec neurology--starting Keppra, will need outpt ambulatory EEG--has had similar episodes prior--most recent one was in April--Urine tox negative for alcohol level, positive for benzodiazepine but
Ativan and Valium were given in ED--EEG unrevealing for seizures, however we still cannot rule out seizures--Restart Eliquis, continue aspirin
BPH with urinary incontinence--foss placed by urology (bloody urine likely traumatic from the catheter)--would keep foss at d/c and f/u with his primary urologist-- urine culture no growth
History of CVA--Prior MRI in 2023 showed small chronic infarcts in both cerebellar hemispheres, small chronic intraparenchymal microhemorrhages in the left frontal, temporal, cerebellar concerning for amyloid angiopathy---Continue aspirin
History of CAD--Continue aspirin and statin
Essential hypertension--Continue ARB and beta-vianey
Rheumatoid arthritis--Continue hydroxychloroquine, sulfasalazine
Gout--Continue allopurinol
Alcohol use disorder--Drinks 2 beers daily, plus told RN that drinks wine nightly and most days guevara along with 2 beers--agree with MSAS protocol--Continue thiamine and folic acid-- says he will not stop
History of right lower extremity DVT--Seen on imaging in October 2019--restart Eliquis for now given traumatic hematuria
DVT proph
code status--Full code
OK for d/c
Original Note:
Today's Communication/Plan
-
Transition to PO Keppra
No growth recovered on urine culture
Discharge planning today
DC on Foss catheter
Follow-up with outpatient urology for removal/voiding trial
Assessment / Plan
Assessment / Plan
Impression
Acute agitation
BPH with urinary incontinence
History of CVA
History of CAD
Rheumatoid arthritis
Gout
Alcohol use disorder
History of right lower extremity DVT
Plan
Acute agitation concerns for TIA, seizures, UTI,encephalopathy, herpes encephalitis
History of previous similar episodes in the past
Urine tox negative for alcohol level, positive for benzodiazepine as Ativan and Valium were given in ED
Is alcohol level was not detected plus transaminase within normal, unlikely hepatic encephalopathy
EEG unrevealing for seizures, however we cannot rule out seizures EEG.
MRI of brain
Hold Eliquis for now, continue aspirin
May need LP? To rule out herpes encephalitis although negative nuchal rigidity
Started on Keppra for potential seizures, patient to oral dose at discharge.
Planning discharge today.
BPH with urinary incontinence
on Foss catheter draining bloody urine likely traumatic from the catheter
No growth recovered on urine culture
Appreciate urology input
Discharged on Foss catheter
Follow-up with outpatient urology
History of CVA
Prior MRI in 2023 showed small chronic infarcts in both cerebellar hemispheres, small chronic intraparenchymal microhemorrhages in the left frontal, temporal, cerebellar concerning for amyloid angiopathy.
Repeat brain MRI
Continue aspirin
History of CAD
Continue aspirin and statin
Essential hypertension
Continue ARB and beta-vianey
Rheumatoid arthritis
Continue hydroxychloroquine, sulfasalazine
Gout
Continue allopurinol
Alcohol use disorder only, uncomplicated
Drinks 2 beers daily
MSAS protocol
Continue thiamine and folic acid
History of right lower extremity DVT
Seen on imaging in October 2019
Hold Eliquis
No Stage 1 Pressure injury bilateral heels and DTI buttock
Full code
DVT prophylaxis�SCDs
Regular diet
Anticipated Discharge: Today
Subjective/Interval History
-
No overnight events
Objective Data
-
Labs:
Laboratory Results
08/05/24
05:05
WBC 10.2
Hgb 12.9 L
Hct 37.5 L
Plt Count 180
Sodium 140
Potassium 3.7
Chloride 108 H
Carbon Dioxide 27
BUN 20
Creatinine 0.8
Glucose 107 H
Calcium 8.7
Vital Signs:
Vital Signs
Temp Pulse Resp BP Pulse Ox
97.9 F 80 18 137/70 95
08/05/24 07:23 08/05/24 07:23 08/05/24 07:23 08/05/24 07:23 08/05/24 07:23
I&O
08/04/24 08/05/24 08/06/24
06:59 06:59 06:59
Intake Total 720 / 720
Output Total 1112 / 1112 850 / 850 525 / 525
Balance -1112 / -1112 -130 / -130 -525 / -525
Review of Systems
-
All other systems: Reviewed and negative
Physical Exam
-
General: No Apparent Distress and Comfortable
HEENT: Normocephalic and Atraumatic
Respiratory: Clear to Auscultation
Cardiac: Regular Rhythm, S1/S2 and Murmur
GI: Soft, Nontender and Nondistended
Genito-urinary: Foss
Neuro: AO x 3
Psych: Calm
Data Reviewed
-
Labs: Labs Reviewed by me and Discussed with Physician
[2024-08-05 11:30] VITALS: BP 131/63
--- NOTE | 2024-08-05 11:44 | VNURNOTE ---
Home Health Liaison met with patient and spouse at bedside to discuss [facility] nurse/therapy, visits, schedule and homebound status. [facility], had us last year. Patient is anxious to go home. Both are agreeable and understand that
visits at home will be 2-3 x per week to assess and teach medical and foss management. [facility] for [facility] of care in 1-2 days after discharge from .
[facility] referral completed in [facility].
--- NOTE | 2024-08-05 14:25 | CM ---
Patient seen at bedside with physicians, and patient . IMM completed and signed form and placed on chart. Patient to be followed by [facility] at discharge. CM will continue to follow for discharge planning needs.
Plan; home with [facility]
--- NOTE | 2024-08-05 15:37 | W.DCSUMMARY ---
Addendum entered and electronically signed by Jessica Zaragoza MD 08/06/24 06:59:
Read, reviewed, and agree. See same day progress note for additional details. Time spent coordinating care, DC planning, review of DC plan of care with resident, transition of care, review of records in EMR, med rec, consults, notes, d/w
consultants, nursing, family, and CM = 32 minutes
Original Note:
Discharge Summary
Discharge Data
Date of Admission: 08/03/24
Date of Discharge: 08/05/24
-
Pending Results: No
Hospital Course
Discharging Physician : Dr Merlene Almeida, Dr Jessica Zaragoza
Disposition : Home
Primary care physician : Jessika Benson
Principal Discharge diagnosis :
Acute agitation
BPH with urinary incontinence
Chronic Discharge diagnosis :
BPH with urinary incontinence
History of CVA
History of CAD
Rheumatoid arthritis
Gout
Alcohol use disorder
History of right lower extremity DVT
Hospital Course : 84-year-old male presented with acute agitation. He had had similar episodes in the past. Patient was given Ativan, Valium, Haldol to manage his agitation. Urine tox negative for alcohol level. Patient's UA was suspicious
urine culture recovered no growth. Patient was retaining urine, urology was consulted and Foss's catheter was placed, draining bloody urine likely due to trauma. Patient has a history of CVA, prior MRI in 2023 showed small chronic infarcts of
both cerebral hemisphere. His EEG was unrevealing for seizures however cannot rule out seizures. Patient was started on Keppra per neurology due to recurrent nature of patient's symptoms. On the day of discharge vitals were unremarkable, patient
is being discharged with Foss's catheter and advised to follow-up with urology for voiding trial/removal. He will continue on Keppra 500 mg twice daily and was advised to follow-up with neurology outpatient for ambulatory EEG
Important imaging findings :
Head CT 08/05/24
There is no recent intracranial infarction, intracranial hemorrhage, mass effect or midline shift. The ventricles, cisterns and sulci are prominent commensurate with age. There is decreased attenuation in the periventricular deep white matter
bilaterally compatible with senescent and/for chronic small vessel related ischemic changes. The brainstem and posterior fossa structures demonstrate no significant focal abnormality.
Procedure findings : none
Discharge Plan
-
Patient Disposition: Home with Home Care
Discharge Diagnosis/Procedures:
Acute agitation
BPH with urinary incontinence
History of CVA
History of CAD
Rheumatoid arthritis
Gout
Alcohol use disorder
History of right lower extremity DVT
Condition: Good
Diet: Low Cholesterol
Activity: No restrictions
Driving Restrictions: As prior to admission
Bathing Restrictions: None
Other Services: VN
Referrals:
Juan Pablo Barahona MD [Non-Admitting Privileges] - (neurology f/u)
Josh Nicholas Jr., MD [Active] - in one to two weeks
Jessika Benson MD [Family Provider] - in less than 1 week
Additional Discharge Medication Instructions: Start taking Keppra 500 mg one tablet 2 times a day .
Follow-up with neurology outpatient for potential ambulatory EEG
Continue Foss at discharge. Follow-up with outpatient urology for Foss removal/voiding trials
VN consult and foss home teaching
Continue to hold Eliquis for additional 24 hours. Start taking after 24 hours.
Prescriptions:
New
levetiracetam 500 mg tablet
500 mg PO BID Qty: 60 0RF
Continued
allopurinol 300 MG tablet
300 mg PO DAILY
sulfasalazine 500 mg Tablet
500 mg PO BID
metoprolol succinate [Toprol XL] 50 mg Tablet Extended Release 24 Hr
75 mg PO DAILY
tamsulosin [Flomax] 0.4 mg Capsule
0.4 mg PO HS
hydroxychloroquine [Plaquenil] 200 mg Tablet
400 mg PO DAILY
irbesartan [Avapro] 300 mg Tablet
300 mg PO DAILY
cholecalciferol (vitamin D3) [Vitamin D3] 50 mcg (2,000 unit) Capsule
50 mcg PO DAILY
atorvastatin 20 mg Tablet
20 mg PO HS
acetaminophen [Tylenol] 325 mg Tablet
650 mg PO Q4HPRN PRN (Reason: mild pain)
calcium carbonate [Calcium 600] 600 mg calcium (1,500 mg) Tablet
600 mg PO DAILY
dutasteride 0.5 mg Capsule
0.5 mg PO MOWEFR@0800
aspirin 81 mg Tablet,Delayed Release (Dr/Ec)
81 mg PO DAILY
Held
Eliquis 5 mg tablet
5 mg PO BID
Hold Instructions: Resume on 08/06/24. would hold eliquis for an additional 24hrs- allow likely traumatic hematuria to clear
Discharge Orders:
Discharge Patient (As Directed); Ordered 08/05/24
Ordered By: Jessica Zaragoza
Discharge Date and Time
Discharge Date/Time: 08/05/24 14:13
Print Language: SLOVENIAN
[2024-08-06 13:32] LABS: Vitamin B1, Whole Blood 337 nmol/L (70-180)
== END 2024-08-05 14:13 | disposition home health service (06) | DRG 100 ==
LOC: 3 WEST ACU 13:08
PROVIDERS: Nurse Practitioner Gerontology; Physician Assistant; Student in an Organized Health Care Education/Training Program; ADMITTING PHYSICIAN Hospitalist; ATTENDING PHYSICIAN Internal Medicine; CONSULT PHYSICIAN Specialist; EMERGENCY PHYSICIAN Student in an Organized Health Care Education/Training Program; FAMILY PHYSICIAN Family Medicine; OTHER PHYSICIAN Psychiatry & Neurology Neurology
DX: R56.9 Unspecified convulsions (principal); G92.8 Other toxic encephalopathy; I50.32 Chronic diastolic (congestive) heart failure; N39.0 Urinary tract infection, site not specified; I82.501 Chronic embolism and thrombosis of unspecified deep veins of right lower extremity; I48.91 Unspecified atrial fibrillation; I25.10 Atherosclerotic heart disease of native coronary artery without angina pectoris; I11.0 Hypertensive heart disease with heart failure; M06.9 Rheumatoid arthritis, unspecified; M10.9 Gout, unspecified; F10.10 Alcohol abuse, uncomplicated; F17.210 Nicotine dependence, cigarettes, uncomplicated; F17.290 Nicotine dependence, other tobacco product, uncomplicated; L89.621 Pressure ulcer of left heel, stage 1; L89.611 Pressure ulcer of right heel, stage 1; L89.301 Pressure ulcer of unspecified buttock, stage 1; Z86.73 Personal history of transient ischemic attack (TIA), and cerebral infarction without residual deficits; Z79.899 Other long term (current) drug therapy; Z79.82 Long term (current) use of aspirin; Z78.1 Physical restraint status; I70.208 Unspecified atherosclerosis of native arteries of extremities, other extremity; N39.498 Other specified urinary incontinence; N40.1 Benign prostatic hyperplasia with lower urinary tract symptoms; N47.1 Phimosis; Z79.01 Long term (current) use of anticoagulants
CPT/HCPCS: 70450; 80048; 80053; 80306; 80307; 81003; 81015; 82010; 82077; 82550; 82607; 82962; 82977; 83735; 84100; 84146; 84425; 84443; 85014; 85018; 85025; 85027; 85610; 85652; 85730; 86140; 87086; 93005; 95816; 96374; 96375; 96376; 97116; 97162; 99291; 99406

== ENCOUNTER 2024-08-08 12:59 | Emergency (ER) | payer OTHER, SELFPAY ==
[2024-08-08 13:09] VITALS: BP 132/63
[2024-08-08 13:48] VITALS: BMI 30.7
[2024-08-08] MEDS: DUONEB 3 ML INH (13:51)
--- NOTE | 2024-08-08 13:54 | ED.GENMED ---
History of Present Illness
General
Chief Complaint: Skin Problem
Time Seen by Provider: 08/08/24 13:34
History of Present Illness
History of Present Illness:
84-year-old male presents the emergency department for evaluation of right upper extremity redness and discomfort first discovered after being discharged from this hospital recently. Correlates with the site of an IV placement. Family is also
concerned that he seems to be wheezing but he denies any shortness of breath. He does endorse clear rhinorrhea and cough productive of clear sputum. No fevers chills or shortness of breath. Does not carry a diagnosis of COPD but admits to heavy
cigar usage for many years
Past History
Past History
ED Past Medical History: CAD and Other (Aortic valve replacement, gout)
ED Past Surgical History: Cardiac
Social History
Tobacco: Smoker
Alcohol: Daily
Drug: None
Personal:
Living: with family
Review of Systems
Review of Systems
Allergies reviewed?: Yes
All Other Systems: ROS reviewed and negative except as documented in HPI and ROS
Phy Exam
Physical Exam
Physical Exam:
GEN: Well appearing, NAD, WDWN
HEENT: Oral mucosa moist, no scleral icterus
Cardiac: Regular rate
Lung: No respiratory distress, no tachypnea, diffuse expiratory wheezes heard throughout all lung [place]
MSK: No gross deformity or injuries. Palpable phlebitis to the right upper extremity just proximal to the antecubital fossa, no warmth
Skin: Good color, no pallor or jaundice, no rashes
Neuro: AO x3, moves all extremities freely
Psych: Calm, cooperative
Course
Orders/Labs/Results
Orders:
Orders
08/08/24 13:45
Ipratropium/Albuterol Sulfate [Duoneb] 3 ml INH R NOW STA
Vital Signs
Initial and Last Documented VS:
Initial Vital Signs
Temp Pulse Resp BP Pulse Ox
97.6 F 88 22 132/63 96
08/08/24 13:09 08/08/24 13:09 08/08/24 13:09 08/08/24 13:09 08/08/24 13:09
Last Documented Vital Signs
Temp Pulse Resp BP Pulse Ox
97.6 F 88 22 132/63 96
08/08/24 13:09 08/08/24 13:09 08/08/24 13:09 08/08/24 13:09 08/08/24 13:09
MDM/Problems Addressed
MDM/Problems Addressed:
The upper extremity display superficial phlebitis from recent IV placement. He is already fully anticoagulated thus no further antiplatelets or anticoagulants are necessary. Recommended warm compresses and home observation. In regards to his
wheezing, this resolved after DuoNeb administration, likely seasonal reactive airway flareup, ultimately most likely has COPD given his excessive cigar use, will prescribe a course of steroids
*Critical Care Note
Total Time (30-74mins, 75-104mins- exclusive of procedures): Not Applicable
ED Attending Note
-
Portions of this chart may have been created with voice recognition software.� Occasional wrong word or��sound alike� substitutions may have occurred due to the inherent limitations of voice recognition software.
Discharge Plan
Departure
Patient Disposition: Home (Routine Discharge)
Date of Disposition: 08/08/24
Time of Disposition: 14:31
Patient with high blood pressure during this ER visit?: No
Discharge Problem:
Phlebitis of superficial vein, Diffuse wheezing
Instructions: Superficial vein phlebitis and thrombosis
Prescriptions:
New
albuterol sulfate 90 mcg/actuation HFA aerosol inhaler
2 puff inhalation Q6H PRN (Reason: shortness of breath or wheezing) Qty: 8.5 0RF
methylprednisolone [Medrol (Manish)] 4 mg tablets,dose pack
See Rx Instructions .ROUTE .COMPLEX Qty: 21 0RF
Rx Instructions:
orally per package directions
No Action
allopurinol 300 MG tablet
300 mg PO DAILY
sulfasalazine 500 mg Tablet
500 mg PO BID
metoprolol succinate [Toprol XL] 50 mg Tablet Extended Release 24 Hr
75 mg PO DAILY
tamsulosin [Flomax] 0.4 mg Capsule
0.4 mg PO HS
hydroxychloroquine [Plaquenil] 200 mg Tablet
400 mg PO DAILY
irbesartan [Avapro] 300 mg Tablet
300 mg PO DAILY
cholecalciferol (vitamin D3) [Vitamin D3] 50 mcg (2,000 unit) Capsule
50 mcg PO DAILY
atorvastatin 20 mg Tablet
20 mg PO HS
acetaminophen [Tylenol] 325 mg Tablet
650 mg PO Q4HPRN PRN (Reason: mild pain)
calcium carbonate [Calcium 600] 600 mg calcium (1,500 mg) Tablet
600 mg PO DAILY
dutasteride 0.5 mg Capsule
0.5 mg PO MOWEFR@0800
aspirin 81 mg Tablet,Delayed Release (Dr/Ec)
81 mg PO DAILY
Eliquis 5 mg tablet
5 mg PO BID
levetiracetam 500 mg tablet
500 mg PO BID Qty: 60 0RF
Interventions
Interventions:
*Risk Screen - Suicide Last Done: 08/08/24 13:09
*General Assessment Last Done: 08/08/24 13:09
*Neglect/Abuse Screening Last Done: 08/08/24 13:09
*ED- Fall Risk Assessment Last Done: 08/08/24 13:48
*ED COVID-19 Vaccine History Last Done: 08/08/24 13:48
ED-Skin Assessment Last Done: 08/08/24 13:50
Discharge Date and Time
Print Language: BENINESE
== END 2024-08-08 15:18 | disposition home or self-care (01) ==
LOC: EMR 12:59
PROVIDERS: EMERGENCY PHYSICIAN Emergency Medicine; FAMILY PHYSICIAN Family Medicine
DX: I80.8 Phlebitis and thrombophlebitis of other sites (principal); R06.2 Wheezing; F17.200 Nicotine dependence, unspecified, uncomplicated; I25.10 Atherosclerotic heart disease of native coronary artery without angina pectoris; Z95.2 Presence of prosthetic heart valve
CPT/HCPCS: 94640; 99283

== ENCOUNTER 2024-08-19 02:27 | Emergency (ER) | payer OTHER, SELFPAY ==
[2024-08-19] VITALS (8 sets, daily range): BP systolic 117–151; BP diastolic 61–82; PULSE 71–82; BMI 33.3
[2024-08-19 02:57] LABS: % Immature Granulocytes 0.4 % (0-0.5); % Lymphocytes 18.3 % (20.5-51.1); % Monocytes 13.1 % (1.7-9.3); % Neutrophils 63.2 % (42.2-75.2); Absolute Basophils 0.1 10^3/uL (0-0.2); Absolute Eosinophils 0.4 10^3/uL (0-0.7); Absolute Lymphocytes 1.7 10^3/uL (1.2-3.4); Absolute Monocytes 1.2 10^3/uL (0.1-0.6); Absolute Neutrophils 5.9 10^3/uL (1.4-6.5); Hematocrit 38.8 % (39.0-52.0); Hemoglobin 13.3 g/dL (13.0-18.0); Mean Corp Hgb Conc. 34.3 g/dL (33.0-37.0); Mean Corpuscular Hgb 32.9 pg (27.0-31.0); Mean Platelet Volume 9.6 fL (7.4-10.4); Nucleated Red Blood Cells % 0 % (-); Platelet Count 271 10^3/uL (130-400); Red Blood Cell Count 4.04 10^6/uL (4.70-6.10); Red Cell Dist. Width 12.1 % (11.5-14.5); White Blood Cell Count 9.3 10^3/uL (4.8-10.8)
[2024-08-19] MEDS: DUONEB 3 ML INH (03:00)
--- NOTE | 2024-08-19 03:02 | ED.GENMED ---
History of Present Illness
General
Chief Complaint: Weakness
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
Exam Limitations: none
Time Seen by Provider: 08/19/24 02:30
Nursing documentation reviewed up to this point in time: agreed with
History of Present Illness
History of Present Illness:
This is an 84-year-old gentleman who resides at home with his . 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
of CVAs, BPH and most recently hospitalized August 03 to August 05 for evaluation of acute agitation. Noted to have similar episodes sporadically in the past. UA was suspicious for UTI however culture revealed no growth. CT of the head showed no
acute findings. Chronic small vessel ischemia. Agitation treated with Ativan/Valium/Haldol.
EEG was unrevealing for seizure however could not completely rule out seizures as cause for transient confusion and agitation thus neurology recommended initiation of Keppra 500 mg twice daily. He is found to have urinary retention requiring Pelayo
catheter and noted to have traumatic hematuria. Eliquis was held temporarily, resumed August 06, 1 day after discharge.
Pelayo catheter removed at urologist office on August 13 and follow-up appointment with Dr. Nicholas yesterday revealed mild urinary retention but no need to resume Pelayo catheter.
Patient has had significant fatigue and loss of appetite since discharge August 05 thought to be related to Keppra thus Keppra was discontinued on Friday, just 2 days ago.
He was evaluated in this ED August 08 due to cough, wheezing. Improved with nebulizer treatment. Was discharged to home with prescription for albuterol inhaler as well as Medrol Dosepak. Cough resolved 3 to 4 days ago but tonight he developed
abrupt onset of recurrent cough associated with shortness of breath, generalized fatigue/weakness. He has not had a fall. He denies fever no chills, no chest pain.
He does note mild chronic bilateral edema of his feet, overall stable and unchanged.
was concerned with low blood pressure with systolic of 101 when she checked it at home and systolic blood pressure 104 via EMS.
No improvement in cough and shortness of breath with albuterol inhaler used at home.
Past History
Past History
ED Past Medical History: CAD, CVA, HTN, Other (Aortic valve replacement, gout; rheumatoid arthritis; chronic DVT right lower extremity, transient encephalopathy; BPH with urinary obstruction) and Other (Transient episodes of confusion concerning for
dementia versus TIA versus seizure disorder)
ED Past Surgical History: Cardiac
Social History
Tobacco: Smoker (Smokes cigars)
Alcohol: Daily
Drug: None
Personal:
Living: with family
Employment: Retired
Family History
Family History: Other (Noncontributory)
Phy Exam
Physical Exam
Physical Exam:
GENERAL: 84-year-old gentleman appears his stated age, awake and alert, oriented x 3, appears mildly tachypneic but able to speak in full sentences. Intermittent moist nonproductive cough is noted. Afebrile. Pulse ox 98% on room air. is
accompanying.
EYE: pupils equal and reactive. anicteric
NECK: Supple, nontender, no meningismus, no significant adenopathy.
ENT: oral mucosa is moist. No rhinorrhea.
CARDIAC: Regular rate and rhythm. no murmur.
LUNGS: Mild resting tachypnea, fine bibasilar Rales, few scattered expiratory wheezing bilaterally.
ABDOMEN: Soft, nondistended, without focal tenderness, no r/g, no cvat. normoactive BS.
NEUROLOGICAL: Alert and oriented x3, no focal neuro deficits.
SKIN: Warm and dry, normal color, skin intact. No rash.
MUSCULOSKELETAL: No clubbing or cyanosis. +1-2 pitting edema bilateral feet, trace pitting edema bilateral lower extremities, peripheral pulses are full and equal b/l. No palpable tenderness.
PSYCH: Normal and appropriate interaction.
Course
Orders/Labs/Results
Orders:
Orders
08/19/24 02:36
EKG [Electrocardiogram (*1)] Urgent
Reason for Study: Shortness of Breath
EKG- Treatment ONCE
08/19/24 02:39
COVID-19 Antigen Urgent
Source: Nasal Swab
Complete Blood Count/With Diff Urgent
Comprehensive Metabolic Panel Urgent
Influenza A+B Rapid Molecular Urgent
PARVIN Source: Nasal Swab
Specimen Description:
08/19/24 02:57
Add On- LAB Urgent
Tests Added?: BNP
08/19/24 02:58
Ipratropium/Albuterol Sulfate [Duoneb] 3 ml INH R NOW STA
08/19/24 03:00
NT-proBNP Urgent
Comment: ADDED
Troponin I Urgent
08/19/24 03:04
D-Dimer Urgent
08/19/24 03:43
CR Chest - 2 Views Urgent
Comment:
Reason For Exam: ACUTE COUGH, SHORTNESS OF BREATH
08/19/24 03:45
Urinalysis Reflex To Culture Urgent
Date Specimen was Collected: 08/19/24
Time Specimen was Collected: 03:38
Urine Microscopic Reflex Cult Urgent
Urine Culture Urgent
PARVIN Source: U
Specimen Description:
Obtained by: Ureter
Date Specimen was Collected: 08/19/24
Time Specimen was Collected: 03:38
08/19/24 05:07
Orthostatic VS- Treatment ONCE
Abnormal Lab Results
08/19/24 08/19/24 08/19/24
02:39 03:04 03:45
RBC 4.04 L 10^6/uL
(4.70-6.10)
Hct 38.8 L %
(39.0-52.0)
MCV 96.0 H fL
(80.0-94.0)
MCH 32.9 H pg
(27.0-31.0)
Absolute Monos (auto) 1.2 H 10^3/uL
(0.1-0.6)
Lymphocytes % 18.3 L %
(20.5-51.1)
Monocytes % 13.1 H %
(1.7-9.3)
D-Dimer 0.53 H ug/mlFEU
(0.00-0.50)
Total Protein 5.7 L g/dl
(6.3-8.2)
Albumin 3.2 L g/dl
(3.5-5.0)
Ur Occult Blood Reflex 4+ A
(Negative)
Urine Nitrite (Reflex) Positive A
(Negative)
Leukocyte Esterase Rfl 3+ A
(Negative)
Urine WBC (Reflex) >100 A /HPF
(0-5)
Urine Albumin (Reflex) 3+ A
(Neg - Trace)
08/19/24 02:39
08/19/24 02:39
Vital Signs
Initial and Last Documented VS:
Initial Vital Signs
Temp
97.7 F
08/19/24 02:30
Last Documented Vital Signs
Temp Pulse Resp BP Pulse Ox
97.7 F 83 17 132/69 99
08/19/24 02:30 08/19/24 05:45 08/19/24 05:45 08/19/24 05:34 08/19/24 04:46
MDM/Problems Addressed
Differential Diagnosis Includes:
Concern for asthmatic bronchitis, pneumonia, CHF. Other consideration is PE.
With complaints of generalized weakness, borderline hypotension at home concern for electrolyte abnormality, dehydration, sepsis, UTI. Less likely adrenal insufficiency. Medrol Dosepak prescribed August 08 which should have completed sometime last
week.
He is awake and alert x 3, no focal neurodeficits. Nothing to suggest CVA.
Labs are pending. Will check urinalysis, BNP, troponin, D-dimer.
Will give DuoNeb nebulizer.
Consider imaging depending on results.
Chronic conditions affecting care: HTN, CAD, COPD, Neurological disorder and Other (History of chronic DVT right lower extremity, maintained on Eliquis which was briefly held for 2 days 2 weeks ago. History of BPH with urinary retention requiring
Pelayo catheter which was removed 5 days ago. Concern for potential UTI.)
Acute Exacerbation and/or Progression of Chronic Illness: COPD
*Radiology
Radiology exam reviewed: preliminary read by ED provider (Chest x-ray is unremarkable. Unchanged from previous.)
*Pulse Oximetry
Patient hypoxic: no
*EKG
Interpreted by ED Provider?: Yes
Interpretation: abnormal
Comparison EKG: changes noted (Weight has decreased from 97 to now 70 when compared to previous EKG August 03, 2024.)
Rate: normal
Rhythm: sinus (Normal sinus rhythm versus junctional rhythm)
[place]: normal axis
Interval: first degree heart block
QRS Pattern: normal QRS
Ischemia: no ischemia
*Toll Collector Interpretation
Rate: normal
Interpretation: abnormal
Rhythm: sinus (Normal sinus rhythm with first-degree heart block versus intermittent junctional rhythm)
*Critical Care Note
Total Time (30-74mins, 75-104mins- exclusive of procedures): Not Applicable
Update Note
Update Note:
06:20
Cough, wheezing has resolved after nebulizer treatment. No further dyspnea.
Patient remains bright and alert, pleasant. Hemodynamically stable.
Orthostatic vital signs are negative.
Labs are unremarkable including unremarkable BNP, similar to previous. Normal troponin. D-dimer is negative.
Chest x-ray shows no acute findings.
Urinalysis however suspicious for UTI, nitrite positive, leukocyte esterase positive, greater than 100 WBCs. As such we will initiate a 1 week course of doxycycline.
Due to intermittent cough, wheezing will add inhaled corticosteroid. Recommend continuing albuterol inhaler for as needed cough, wheezing.
Recommend prompt follow-up with PCP for recheck.
Continue to follow-up with urology.
Return precautions discussed.
ED Attending Note
-
Portions of this chart may have been created with voice recognition software.� Occasional wrong word or��sound alike� substitutions may have occurred due to the inherent limitations of voice recognition software.
Discharge Plan
Departure
Patient Disposition: Home (Routine Discharge)
Date of Disposition: 08/19/24
Time of Disposition: 06:27
Patient with high blood pressure during this ER visit?: No
Condition: Good
Discharge Problem:
Acute asthma exacerbation, Urinary tract infection
Instructions: Asthma action plan for adults, Urinary Tract Infection - Men
Prescriptions:
New
doxycycline monohydrate 100 mg capsule
100 mg PO BID Qty: 14 1RF
fluticasone propion-salmeterol [Wixela Inhub] 250-50 mcg/dose blister with device
1 inh inhalation BID Qty: 60 0RF
Rx Instructions:
rinse mouth after use
No Action
allopurinol 300 MG tablet
300 mg PO DAILY
sulfasalazine 500 mg Tablet
500 mg PO BID
metoprolol succinate [Toprol XL] 50 mg Tablet Extended Release 24 Hr
75 mg PO DAILY
tamsulosin [Flomax] 0.4 mg Capsule
0.4 mg PO HS
hydroxychloroquine [Plaquenil] 200 mg Tablet
400 mg PO DAILY
irbesartan [Avapro] 300 mg Tablet
300 mg PO DAILY
cholecalciferol (vitamin D3) [Vitamin D3] 50 mcg (2,000 unit) Capsule
50 mcg PO DAILY
atorvastatin 20 mg Tablet
20 mg PO HS
acetaminophen [Tylenol] 325 mg Tablet
650 mg PO Q4HPRN PRN (Reason: mild pain)
calcium carbonate [Calcium 600] 600 mg calcium (1,500 mg) Tablet
600 mg PO DAILY
dutasteride 0.5 mg Capsule
0.5 mg PO MOWEFR@0800
aspirin 81 mg Tablet,Delayed Release (Dr/Ec)
81 mg PO DAILY
Eliquis 5 mg tablet
5 mg PO BID
levetiracetam 500 mg tablet
500 mg PO BID Qty: 60 0RF
albuterol sulfate 90 mcg/actuation HFA aerosol inhaler
2 puff inhalation Q6H PRN (Reason: shortness of breath or wheezing) Qty: 8.5 0RF
methylprednisolone [Medrol (Manish)] 4 mg tablets,dose pack
See Rx Instructions .ROUTE .COMPLEX Qty: 21 0RF
Rx Instructions:
orally per package directions
Referrals:
Jessika Benson MD [Family Provider] - Call in 1-3 days for appt
Interventions
Interventions:
*Risk Screen - Suicide Last Done: 08/19/24 02:30
*General Assessment Last Done: 08/19/24 02:30
*Neglect/Abuse Screening Last Done: 08/19/24 02:30
*ED- Fall Risk Assessment Last Done: 08/19/24 02:30
*ED COVID-19 Vaccine History Last Done: 08/19/24 02:30
ED- Cardiac Assessment Last Done: 08/19/24 02:34
ED- Neurological Assessment Last Done: 08/19/24 02:34
ED- Pulmonary Assessment Last Done: 08/19/24 02:34
Discharge Date and Time
Print Language: KOREAN
[2024-08-19 03:12] LABS: COVID-19 Antigen Negative (Negative)
[2024-08-19 03:20] LABS: ALT (SGPT) 23 U/L (0-50); AST (SGOT) 26 U/L (17-59); Albumin 3.2 g/dl (3.5-5.0); Alkaline Phosphatase 113 U/L (38-126); Blood Urea Nitrogen 19 mg/dl (9-20); Calcium 9.2 mg/dl (8.4-10.2); Carbon Dioxide 27 mmol/L (22-30); Chloride 105 mmol/L (98-107); Estimated Creatinine Clearance 83 ml/min; Glucose 91 mg/dl (70-99); Sodium 140 mmol/L (135-145); Total Bilirubin 0.6 mg/dl (0.2-1.3); Total Protein 5.7 g/dl (6.3-8.2); eGFR > 60.00
[2024-08-19 03:23] LABS: D-Dimer 0.53 ug/mlFEU (0.00-0.50)
[2024-08-19 03:35] LABS: NT-proBNP 453 pg/ml; Troponin I 0.012 ng/ml
[2024-08-19 04:26] LABS: Urine Albumin 3+ (Neg - Trace); Urine Bilirubin Negative (Negative); Urine Character Cloudy (Clear); Urine Color Amber; Urine Glucose Negative (Negative); Urine Ketone Negative (Negative); Urine Leukocyte 3+ (Negative); Urine Nitrite Positive (Negative); Urine Occult Blood 4+ (Negative); Urine Specific Gravity 1.025 (<1.030); Urine Urobilinogen Negative (Neg - 1+)
[2024-08-19 06:12] LABS: Urine Red Blood Cell 0-2 /HPF (0-2); Urine Squamous Cell None seen /LPF (Few); Urine White Cell >100 /HPF (0-5)
[2024-08-19] MEDS: VIBRAMYCIN 100 MG PO (06:58)
== END 2024-08-19 07:25 | disposition home or self-care (01) ==
LOC: EMR 02:27
PROVIDERS: EMERGENCY PHYSICIAN Emergency Medicine; FAMILY PHYSICIAN Family Medicine
DX: J45.901 Unspecified asthma with (acute) exacerbation (principal); N39.0 Urinary tract infection, site not specified; I25.10 Atherosclerotic heart disease of native coronary artery without angina pectoris; I10 Essential (primary) hypertension; I67.82 Cerebral ischemia; M06.9 Rheumatoid arthritis, unspecified; F17.290 Nicotine dependence, other tobacco product, uncomplicated; N40.1 Benign prostatic hyperplasia with lower urinary tract symptoms; Z79.01 Long term (current) use of anticoagulants; Z86.73 Personal history of transient ischemic attack (TIA), and cerebral infarction without residual deficits; Z95.3 Presence of xenogenic heart valve
CPT/HCPCS: 99283; 94640; 71046; 80053; 81003; 81015; 83880; 84484; 85025; 85379; 87077; 87086; 87502; 87811; 93005

== ENCOUNTER 2024-08-24 08:57 | Emergency (ER) | payer OTHER, SELFPAY ==
[2024-08-24 09:07] VITALS: BP 130/63
[2024-08-24 09:20] LABS: % Eosinophils 3.6 % (0-6); % Immature Granulocytes 0.3 % (0-0.5); % Lymphocytes 16.3 % (20.5-51.1); % Monocytes 13.1 % (1.7-9.3); % Neutrophils 65.7 % (42.2-75.2); Absolute Basophils 0.1 10^3/uL (0-0.2); Absolute Eosinophils 0.3 10^3/uL (0-0.7); Absolute Lymphocytes 1.2 10^3/uL (1.2-3.4); Absolute Neutrophils 4.8 10^3/uL (1.4-6.5); Hematocrit 38.2 % (39.0-52.0); Hemoglobin 13.1 g/dL (13.0-18.0); Mean Corp Hgb Conc. 34.3 g/dL (33.0-37.0); Mean Corpuscular Hgb 32.8 pg (27.0-31.0); Mean Corpuscular Volume 95.5 fL (80.0-94.0); Mean Platelet Volume 9.5 fL (7.4-10.4); Nucleated Red Blood Cells % 0 % (-); Platelet Count 231 10^3/uL (130-400); Red Cell Dist. Width 12.2 % (11.5-14.5); White Blood Cell Count 7.2 10^3/uL (4.8-10.8)
[2024-08-24 09:38] LABS: ALT (SGPT) 25 U/L (0-50); AST (SGOT) 28 U/L (17-59); Albumin 3.3 g/dl (3.5-5.0); Alkaline Phosphatase 116 U/L (38-126); Blood Urea Nitrogen 20 mg/dl (9-20); Calcium 9.1 mg/dl (8.4-10.2); Carbon Dioxide 27 mmol/L (22-30); Chloride 111 mmol/L (98-107); Glucose 120 mg/dl (70-99); Potassium 4.5 mmol/L (3.5-5.1); Sodium 140 mmol/L (135-145); Total Bilirubin 0.7 mg/dl (0.2-1.3); Total Protein 5.9 g/dl (6.3-8.2); eGFR > 60.00
--- NOTE | 2024-08-24 10:01 | ED.GENMED ---
History of Present Illness
General
Chief Complaint: Weakness
Source: patient
Exam Limitations: none
Time Seen by Provider: 08/24/24 09:51
History of Present Illness
History of Present Illness:
See MDM
Past History
Past History
ED Past Medical History: CAD, CVA, HTN, Other (Aortic valve replacement, gout; rheumatoid arthritis; chronic DVT right lower extremity, transient encephalopathy; BPH with urinary obstruction) and Other (Transient episodes of confusion concerning for
dementia versus TIA versus seizure disorder)
ED Past Surgical History: Cardiac
Social History
Tobacco: Smoker (Smokes cigars)
Alcohol: Daily
Drug: None
Personal:
Living: with family
Employment: Retired
Family History
Family History: Other (Noncontributory)
Phy Exam
Physical Exam
Physical Exam:
See MDM
Course
Orders/Labs/Results
Orders:
Orders
08/24/24 09:14
Complete Blood Count/With Diff Urgent
Comprehensive Metabolic Panel Urgent
08/24/24 10:01
Electrocardiogram (*1) Urgent
Reason for Study: QTc Monitoring
EKG- Treatment ONCE
08/24/24 10:13
CR Chest - 2 Views Urgent
Comment:
Reason For Exam: SOB
08/24/24 10:29
NT-proBNP Urgent
Troponin I Urgent
Urinalysis Reflex To Culture Urgent
Date Specimen was Collected: 08/24/24
Time Specimen was Collected: 10:16
Urine Microscopic Reflex Cult Urgent
Urine Culture Urgent
PARVIN Source: U
Specimen Description:
Date Specimen was Collected: 08/24/24
Time Specimen was Collected: 10:16
08/24/24 12:34
LevoFLOXacin [Levaquin] 750 mg PO NOW STA
Abnormal Lab Results
08/24/24 08/24/24
09:14 10:29
RBC 4.00 L 10^6/uL
(4.70-6.10)
Hct 38.2 L %
(39.0-52.0)
MCV 95.5 H fL
(80.0-94.0)
MCH 32.8 H pg
(27.0-31.0)
Absolute Monos (auto) 1.0 H 10^3/uL
(0.1-0.6)
Lymphocytes % 16.3 L %
(20.5-51.1)
Monocytes % 13.1 H %
(1.7-9.3)
Chloride 111 H mmol/L
(98-107)
Glucose 120 H mg/dl
(70-99)
Total Protein 5.9 L g/dl
(6.3-8.2)
Albumin 3.3 L g/dl
(3.5-5.0)
Ur Occult Blood Reflex 2+ A
(Negative)
Leukocyte Esterase Rfl 3+ A
(Negative)
Urine RBC 3-6 A /HPF
(0-2)
Urine WBC (Reflex) >100 A /HPF
(0-5)
Urine Bacteria (Reflex) Few A
(Negative)
Urine Albumin (Reflex) 3+ A
(Neg - Trace)
08/24/24 09:14
08/24/24 09:14
Vital Signs
Initial and Last Documented VS:
Initial Vital Signs
Temp Pulse Resp BP Pulse Ox
97.8 F 72 16 130/63 99
08/24/24 09:07 08/24/24 09:07 08/24/24 09:07 08/24/24 09:07 08/24/24 09:07
Last Documented Vital Signs
Temp Pulse Resp BP Pulse Ox
97.8 F 71 20 142/69 96
08/24/24 09:07 08/24/24 10:18 08/24/24 12:00 08/24/24 10:18 08/24/24 12:00
MDM/Problems Addressed
Differential Diagnosis Includes:
HPI and MDM Narrative:
84-year-old male presenting with generalized weakness and nausea. This has been ongoing for the past few days. Patient has been dealing with urinary tract infection. His PCP transitioned him from doxycycline to Levaquin a few days ago. During
this time, patient has had involuntary eye movement and continues to roll his eyes backwards. Because of his prior history of a seizure, called the neurologist. The neurologist suggested that he restart his Keppra but at a lower dose.
Patient state some of his urine symptoms are improving but are still present. I question whether or not he had nausea and weakness issues from being on Keppra in the past. It appears that this was a common side effect for him. We discussed the
possibility of outpatient failure for urinary tract infection versus adverse reaction to his Keppra. Blood work done prior to my assessment showing no significant lab abnormalities. Will obtain urinalysis
On exam, patient does appear mildly tachypneic. Although he is not complaining of shortness of breath, states that he becomes visually short of breath with exertion. Will obtain chest x-ray
Physical exam
General: Well appearing and non-toxic
HEENT: protecting airway. Mildly dry mucous membranes
Neck: appears supple
CV: No evidence of cyanosis
Resp: No accessory muscle use. Mild tachypnea. Shallow breath sounds
Abd: Non-distended. Soft and nontender
Extremities: No deformities
Neuro: alert. No convulsions noted but intermittently eye rolling noted
Psych: Normal affect
Skin: Intact
Problems Addressed including Acute and Chronic Conditions affecting care:
1. Nausea and weakness
Acuity: acute
Prognosis: stable
Details: Potentially related to restarting Keppra. Will obtain screening EKG to ensure QTc okay for Zofran and to ensure this is not a cardiac issue
Updates
Urinalysis does show some improvement. Patient also states that he is feeling better. Although urine no longer has nitrites, there is evidence of elevated WBCs. Looking at the prior sensitivities, both bacteria appear to be ciprofloxacin and
Levaquin. Patient was prescribed 5 days of Levaquin. Will give an extra dose today to increase that to a total of 6 days. I did offer admission but both patient and feel comfortable going home. Discussed calling the neurologist to discuss
whether or not some of his symptoms could be a side effect of Keppra. They actually have an appointment on Friday. Discussed follow-up with PCP for urinalysis after finishing Levaquin
Differential Diagnosis (but not limited to): Adverse medication reaction, UTI
Testing considered: CT head
Drug therapy (if applicable): OTC meds, please see d/c instruction regarding Rx drugs
Amount and/or Complexity of Data Reviewed
Clinical info obtained from: Patient. states that his doxycycline was recently changed to Levaquin
External data reviewed: N/A
Labs I independently reviewed (but not limited to): White blood cell count normal
Radiology: N/A
Pulse Ox: not hypoxic
EKG independently reviewed: Sinus rhythm, normal axis, no STEMI
Rn Cardiology: Sinus rhythm
Critical Care: N/A
Risk of Complication:
Social Determinants of health: Good social support
Discussed with other providers: N/A
Escalation of Care includes Admit/Obs: After being observed in the Emergency Department, pt stable for discharge.
Occasional wrong word or 'sound a like' substitutions may have occurred due to the inherent limitations of voice recognition software. Read the chart carefully and recognize, using context, where substitutions have occurred.
*Critical Care Note
Total Time (30-74mins, 75-104mins- exclusive of procedures): Not Applicable
ED Attending Note
-
Portions of this chart may have been created with voice recognition software.� Occasional wrong word or��sound alike� substitutions may have occurred due to the inherent limitations of voice recognition software.
Discharge Plan
Departure
Patient Disposition: Home (Routine Discharge)
Date of Disposition: 08/24/24
Time of Disposition: 12:37
Patient with high blood pressure during this ER visit?: No
Discharge Problem:
Acute UTI
Prescriptions:
No Action
allopurinol 300 MG tablet
300 mg PO DAILY
sulfasalazine 500 mg Tablet
500 mg PO BID
metoprolol succinate [Toprol XL] 50 mg Tablet Extended Release 24 Hr
75 mg PO DAILY
tamsulosin [Flomax] 0.4 mg Capsule
0.4 mg PO HS
hydroxychloroquine [Plaquenil] 200 mg Tablet
400 mg PO DAILY
irbesartan [Avapro] 300 mg Tablet
300 mg PO DAILY
cholecalciferol (vitamin D3) [Vitamin D3] 50 mcg (2,000 unit) Capsule
50 mcg PO DAILY
atorvastatin 20 mg Tablet
20 mg PO HS
acetaminophen [Tylenol] 325 mg Tablet
650 mg PO Q4HPRN PRN (Reason: mild pain)
calcium carbonate [Calcium 600] 600 mg calcium (1,500 mg) Tablet
600 mg PO DAILY
dutasteride 0.5 mg Capsule
0.5 mg PO MOWEFR@0800
aspirin 81 mg Tablet,Delayed Release (Dr/Ec)
81 mg PO DAILY
Eliquis 5 mg tablet
5 mg PO BID
levetiracetam 500 mg tablet
500 mg PO BID Qty: 60 0RF
albuterol sulfate 90 mcg/actuation HFA aerosol inhaler
2 puff inhalation Q6H PRN (Reason: shortness of breath or wheezing) Qty: 8.5 0RF
methylprednisolone [Medrol (Manish)] 4 mg tablets,dose pack
See Rx Instructions .ROUTE .COMPLEX Qty: 21 0RF
Rx Instructions:
orally per package directions
doxycycline monohydrate 100 mg capsule
100 mg PO BID Qty: 14 1RF
fluticasone propion-salmeterol [Wixela Inhub] 250-50 mcg/dose blister with device
1 inh inhalation BID Qty: 60 0RF
Rx Instructions:
rinse mouth after use
ciprofloxacin HCl [Cipro] 500 mg tablet
500 mg PO BID Qty: 14 0RF
Referrals:
Jessika Benson MD [Family Provider] -
Activity Restrictions/Additional Instructions:
Please return for any worsening symptoms.
You may return at any time if you have further concerns.
Please follow up with your doctor at the first available appointment, preferably this week. Please have your urine rechecked after finishing the Levaquin prescription.
Please keep your neurology appointment on Friday. Please discuss his symptoms and whether or not this could be related to Keppra.
Thank you for choosing [facility].
Interventions
Interventions:
*Risk Screen - Suicide Last Done: 08/24/24 09:07
*Neglect/Abuse Screening Last Done: 08/24/24 09:07
Discharge Date and Time
Print Language: [place]ET[place]
[2024-08-24 10:17] VITALS: BMI 32.3
[2024-08-24 10:18] VITALS: BP 142/69
[2024-08-24 10:57] LABS: Urine Albumin 3+ (Neg - Trace); Urine Bilirubin Negative (Negative); Urine Character Cloudy (Clear); Urine Color Yellow; Urine Glucose Negative (Negative); Urine Ketone Negative (Negative); Urine Leukocyte 3+ (Negative); Urine Nitrite Negative (Negative); Urine Occult Blood 2+ (Negative); Urine Urobilinogen Negative (Neg - 1+)
[2024-08-24 11:03] LABS: NT-proBNP 410 pg/ml; Troponin I < 0.012 ng/ml
[2024-08-24 12:09] LABS: Urine Amorphous Seen; Urine White Cell >100 /HPF (0-5)
[2024-08-24 12:11] LABS: Urine Bacteria Few (Negative)
[2024-08-24] MEDS: LEVAQUIN 750 MG PO (12:45)
== END 2024-08-24 13:32 | disposition home or self-care (01) ==
LOC: EMR 08:57
PROVIDERS: EMERGENCY PHYSICIAN Student in an Organized Health Care Education/Training Program; FAMILY PHYSICIAN Family Medicine
DX: N39.0 Urinary tract infection, site not specified (principal); I10 Essential (primary) hypertension; I25.10 Atherosclerotic heart disease of native coronary artery without angina pectoris; M06.9 Rheumatoid arthritis, unspecified; Z86.73 Personal history of transient ischemic attack (TIA), and cerebral infarction without residual deficits; Z95.2 Presence of prosthetic heart valve; F17.290 Nicotine dependence, other tobacco product, uncomplicated
CPT/HCPCS: 99285; 71046; 80053; 81003; 81015; 83880; 84484; 85025; 87086; 93005

== ENCOUNTER → 2024-09-09 07:21 | Outpatient (REF) | payer OTHER, SELFPAY ==
[2024-09-09 08:01] LABS: Urine Albumin 2+ (Neg - Trace); Urine Bilirubin Negative (Negative); Urine Character Cloudy (Clear); Urine Color Yellow; Urine Glucose Negative (Negative); Urine Ketone Negative (Negative); Urine Leukocyte 3+ (Negative); Urine Nitrite Positive (Negative); Urine Occult Blood 3+ (Negative); Urine Urobilinogen Negative (Neg - 1+)
[2024-09-09 08:01] LABS: % Basophils 1.3 % (0-2); % Eosinophils 4.1 % (0-6); % Immature Granulocytes 0.4 % (0-0.5); % Monocytes 9.1 % (1.7-9.3); % Neutrophils 72.1 % (42.2-75.2); Absolute Basophils 0.1 10^3/uL (0-0.2); Absolute Eosinophils 0.3 10^3/uL (0-0.7); Absolute Monocytes 0.7 10^3/uL (0.1-0.6); Absolute Neutrophils 5.8 10^3/uL (1.4-6.5); Hematocrit 41.5 % (39.0-52.0); Hemoglobin 13.9 g/dL (13.0-18.0); Mean Corp Hgb Conc. 33.5 g/dL (33.0-37.0); Mean Corpuscular Hgb 32.2 pg (27.0-31.0); Mean Corpuscular Volume 96.1 fL (80.0-94.0); Mean Platelet Volume 9.6 fL (7.4-10.4); Nucleated Red Blood Cells % 0 % (-); Platelet Count 255 10^3/uL (130-400); Red Blood Cell Count 4.32 10^6/uL (4.70-6.10); Red Cell Dist. Width 12.5 % (11.5-14.5)
[2024-09-09 08:19] LABS: Urine Bacteria Many (Negative); Urine Red Blood Cell 26-30 /HPF (0-2); Urine Squamous Cell 0-2 /LPF (Few); Urine White Cell >100 /HPF (0-5)
[2024-09-09 08:45] LABS: ALT (SGPT) 24 U/L (0-50); AST (SGOT) 26 U/L (17-59); Albumin 3.5 g/dl (3.5-5.0); Alkaline Phosphatase 128 U/L (38-126); Blood Urea Nitrogen 19 mg/dl (9-20); Carbon Dioxide 29 mmol/L (22-30); Chloride 108 mmol/L (98-107); Glucose 116 mg/dl (70-99); HDL Cholesterol 48 mg/dl; LDL Cholesterol, Calculated 72 mg/dl; Potassium 4.2 mmol/L (3.5-5.1); Sodium 143 mmol/L (135-145); Total Bilirubin 0.8 mg/dl (0.2-1.3); Total Cholesterol 137 mg/dl (50-199); Total Protein 6.2 g/dl (6.3-8.2); Triglyceride 89 mg/dl (10-149); Uric Acid 3.7 mg/dl (3.5-8.5); Very Low Density Lipoprotein 17 mg/dl (0-30); eGFR > 60.00
[2024-09-09 09:09] LABS: Glycohemoglobin (HgbA1c) 5.2 % (4.0-5.6)
[2024-09-09 10:49] LABS: TSH 2.44 uIU/ml (0.47-4.68)
[2024-09-09 11:37] LABS: Folate 8.7 ng/ml (2.76-20); Vitamin B12 301 pg/ml (239-931)
== END ==
LOC: REG 07:21
PROVIDERS: ATTENDING PHYSICIAN Internal Medicine Cardiovascular Disease; FAMILY PHYSICIAN Family Medicine
DX: I10 Essential (primary) hypertension (principal); E78.5 Hyperlipidemia, unspecified; R73.01 Impaired fasting glucose; Z13.0 Encounter for screening for diseases of the blood and blood-forming organs and certain disorders involving the immune mechanism; N39.0 Urinary tract infection, site not specified; Z87.39 Personal history of other diseases of the musculoskeletal system and connective tissue; Z13.29 Encounter for screening for other suspected endocrine disorder; E53.8 Deficiency of other specified B group vitamins; Z78.9 Other specified health status
CPT/HCPCS: 36415; 80053; 80061; 81003; 81015; 82607; 82746; 83036; 84425; 84443; 84550; 85025; 87077; 87086; 87186

== ENCOUNTER → 2024-10-14 10:07 | Outpatient (REF) | payer OTHER, SELFPAY ==
[2024-10-14 11:05] LABS: Urine Character Clear (Clear)
[2024-10-14 11:08] LABS: Hematocrit 39.6 % (39.0-52.0); Hemoglobin 13.4 g/dL (13.0-18.0); Mean Corp Hgb Conc. 33.8 g/dL (33.0-37.0); Mean Corpuscular Volume 94.1 fL (80.0-94.0); Nucleated Red Blood Cells % 0 % (-); Platelet Count 207 10^3/uL (130-400); Red Cell Dist. Width 13.6 % (11.5-14.5)
[2024-10-14 11:21] LABS: Urine White Cell >100 /HPF (0-5)
[2024-10-14 11:23] LABS: Urine Urothelial Cell 0-2 /LPF (FEW)
[2024-10-14 11:39] LABS: ALT (SGPT) 27 U/L (0-50); AST (SGOT) 28 U/L (17-59); Albumin 3.8 g/dl (3.5-5.0); Alkaline Phosphatase 121 U/L (38-126); Blood Urea Nitrogen 18 mg/dl (9-20); Calcium 9.1 mg/dl (8.4-10.2); Carbon Dioxide 25 mmol/L (22-30); Chloride 105 mmol/L (98-107); Glucose 120 mg/dl (70-99); Potassium 4.5 mmol/L (3.5-5.1); Sodium 138 mmol/L (135-145); Total Protein 6.3 g/dl (6.3-8.2); eGFR > 60.00
== END ==
LOC: REG 10:07
PROVIDERS: ATTENDING PHYSICIAN Nurse Practitioner Family; FAMILY PHYSICIAN Family Medicine
DX: N39.0 Urinary tract infection, site not specified (principal); R56.9 Unspecified convulsions
CPT/HCPCS: 36415; 80053; 80177; 81003; 81015; 85025; 87077; 87086; 87186

== ENCOUNTER → 2024-11-09 11:45 | Outpatient (REF) | payer OTHER, SELFPAY ==
[2024-11-09 17:34] LABS: Urine Character Slightly Cloudy (Clear)
[2024-11-09 17:45] LABS: Urine Squamous Cell 0-2 /LPF (Few)
[2024-11-09 17:46] LABS: Urine Red Blood Cell 0-2 /HPF (0-2); Urine White Cell >100 /HPF (0-5)
== END ==
LOC: CLAB 11:45
PROVIDERS: ATTENDING PHYSICIAN Specialist
DX: N39.0 Urinary tract infection, site not specified (principal)
CPT/HCPCS: 81003; 81015; 87077; 87086; 87186

== ENCOUNTER → 2024-11-15 11:43 | Outpatient (REF) | payer OTHER, SELFPAY | LOC: HWRAD 11:43 | PROVIDERS: ATTENDING PHYSICIAN Specialist; FAMILY PHYSICIAN Family Medicine | DX: N39.0 Urinary tract infection, site not specified (principal) | CPT/HCPCS: 74176 ==

== ENCOUNTER → 2024-12-08 10:06 | Outpatient (REF) | payer OTHER, SELFPAY ==
[2024-12-08 11:41] LABS: Hematocrit 39.9 % (39.0-52.0); Hemoglobin 13.1 g/dL (13.0-18.0); Mean Corp Hgb Conc. 32.8 g/dL (33.0-37.0); Mean Corpuscular Volume 95.0 fL (80.0-94.0); Nucleated Red Blood Cells % 0 % (-); Platelet Count 204 10^3/uL (130-400); Red Cell Dist. Width 12.8 % (11.5-14.5)
[2024-12-08 12:33] LABS: ALT (SGPT) 30 U/L (0-50); AST (SGOT) 31 U/L (17-59); Albumin 3.9 g/dl (3.5-5.0); Alkaline Phosphatase 103 U/L (38-126); Blood Urea Nitrogen 19 mg/dl (9-20); Calcium 9.2 mg/dl (8.4-10.2); Carbon Dioxide 29 mmol/L (22-30); Chloride 107 mmol/L (98-107); Glucose 112 mg/dl (70-99); Potassium 5.3 mmol/L (3.5-5.1); Sodium 140 mmol/L (135-145); Total Protein 6.3 g/dl (6.3-8.2); eGFR > 60.00
[2024-12-08 13:01] LABS: C-Reactive Protein < 5.00 mg/L (0.0-10.00)
== END ==
LOC: REG 10:06
PROVIDERS: ATTENDING PHYSICIAN Internal Medicine Rheumatology; FAMILY PHYSICIAN Family Medicine
DX: M06.00 Rheumatoid arthritis without rheumatoid factor, unspecified site (principal)
CPT/HCPCS: 36415; 80053; 85025; 85652; 86140

== ENCOUNTER → 2025-02-16 06:52 | Outpatient (REF) | payer OTHER, SELFPAY ==
[2025-02-16 07:54] LABS: Hematocrit 40.2 % (39.0-52.0); Hemoglobin 13.4 g/dL (13.0-18.0); Mean Corp Hgb Conc. 33.3 g/dL (33.0-37.0); Mean Corpuscular Volume 96.6 fL (80.0-94.0); Nucleated Red Blood Cells % 0 % (-); Platelet Count 199 10^3/uL (130-400); Red Cell Dist. Width 12.8 % (11.5-14.5)
[2025-02-16 08:41] LABS: ALT (SGPT) 24 U/L (0-50); AST (SGOT) 26 U/L (17-59); Albumin 4.1 g/dl (3.5-5.0); Alkaline Phosphatase 117 U/L (38-126); Blood Urea Nitrogen 19 mg/dl (9-20); Calcium 9.0 mg/dl (8.4-10.2); Carbon Dioxide 29 mmol/L (22-30); Chloride 105 mmol/L (98-107); Glucose 114 mg/dl (70-99); HDL Cholesterol 67 mg/dl; LDL Cholesterol, Calculated 68 mg/dl; Sodium 142 mmol/L (135-145); Total Protein 6.7 g/dl (6.3-8.2); Very Low Density Lipoprotein 14 mg/dl (0-30); eGFR > 60.00
[2025-02-16 08:47] LABS: Potassium 4.1 mmol/L (3.5-5.1)
[2025-02-16 08:52] LABS: C-Reactive Protein < 5.00 mg/L (0.0-10.00)
[2025-02-16 10:13] LABS: Glycohemoglobin (HgbA1c) 4.9 % (4.0-5.9)
[2025-02-16 17:42] LABS: Urine Character Slightly Cloudy (Clear)
[2025-02-16 17:55] LABS: Urine Squamous Cell 0-2 /LPF (Few)
[2025-02-16 17:56] LABS: Urine Red Blood Cell 26-30 /HPF (0-2); Urine White Cell >100 /HPF (0-5)
== END ==
LOC: REG 06:52
PROVIDERS: ATTENDING PHYSICIAN Specialist; FAMILY PHYSICIAN Family Medicine; OTHER PHYSICIAN Internal Medicine Cardiovascular Disease; OTHER PHYSICIAN Internal Medicine Rheumatology
DX: N39.0 Urinary tract infection, site not specified (principal); E11.9 Type 2 diabetes mellitus without complications; E78.5 Hyperlipidemia, unspecified; M06.00 Rheumatoid arthritis without rheumatoid factor, unspecified site; I10 Essential (primary) hypertension
CPT/HCPCS: 36415; 80053; 80061; 81003; 81015; 83036; 85025; 85652; 86140; 87086